=== PATIENT | female | born 1930 | race Caucasian/White ===

== ENCOUNTER 2016-05-28 21:46 | Emergency (ER) | payer MEDICARE ==
[~2016-05-28 21:46] MED LIST: Sodium Chloride 0.9% 1,000 ML BAG ONE
[2016-05-28] MEDS ORDERED: Labetalol HCl 100 MG/20 ML VIAL ONE (22:24)
[2016-05-28 23:01] LABS: INR-International Normal Ratio 1.4; Prothrombin Time 17.1 SEC (12.0-14.7)
[2016-05-28 23:02] LABS: PTT 39.4 SEC (22.9-36.1)
[2016-05-28 23:10] LABS: #Basophils 0.1 thou/uL (0.0-0.2); #Eosinphils 0.2 thou/uL (0.0-0.7); #Lymphocytes 1.4 thou/uL (1.20-3.40); #Monocytes 0.8 thou/uL (0.11-0.59); #Neutrophils 4.4 thou/uL (1.40-6.50); %Basophils 1.1 % (0.0-1.0); %Eosinophils 2.3 % (0.0-10.0); %Lymphocytes 20.2 % (21.0-51.0); %Monocytes 11.2 % (0.0-10.0); %Neutrophils 65.3 % (42.0-75.0); Hemoglobin 13.1 g/dL (12.0-16.0); Mean Corpuscular Hemoglobin 33.9 pg (27.0-31.0); Mean Corpuscular Volume 99.8 fl (81.0-99.0); Mean Platelet Volume 6.6 fL (7.4-10.4); Platelet Count 338 thou/uL (130-400); RBC Distribution Width 12.3 % (11.5-14.5); Red Blood Cell (RBC) Count 3.85 mill/uL (4.20-5.40); White Blood Cell (WBC) Count 6.7 thou/uL (4.8-10.8)
--- NOTE | 2016-05-28 23:14 | CT ---
HEAD CT WITHOUT CONTRAST 05/28/2016 COMPARISON: 06/28/2014 HISTORY: Altered mental status. TECHNIQUE: Serial axial CT imaging at 5-mm intervals from vertex through skull base without contrast. FINDINGS: The imaged paranasal sinuses and mastoid air cells are well-aerated. There is no displaced calvaria l fracture. There is atherosclerotic calcification of the cavernous carotid arteries. There is moderate diffuse cerebral volume loss with associated prominence of the CSF-containing spaces. There is prominent p eriventricular, deep, and subcortical white matter hypodensity, evidence of small vessel disease. No intracranial hemorrhage. IMPRESSION: Chronic findings as above. No intracranial hemorrhage noted. POS: [facility]
[2016-05-28 23:33] LABS: ALT (SGPT) 15 U/L (0-55); AST (SGOT) 16 U/L (5-34); Albumin 3.8 g/dL (3.4-4.8); Alkaline Phosphatase 65 U/L (40-150); Anion Gap 18 mmol/L (10-20); BUN (Urea Nitrogen) 11 mg/dL (9.8-20.1); Bilirubin, Total 0.5 mg/dL (0.2-1.2); CK (CPK) 36 U/L (29-168); CKMB 0.9 ng/mL (0-6.6); Calc. Creatinine Clearance 0 mL/min (70-130); Calcium 8.9 mg/dL (7.8-10.44); Carbon Dioxide 23 mmol/L (23-31); Chloride 101 mmol/L (98-107); Estimated GFR-MDRD 84; Globulin 2.6 g/dL (2.4-3.5); Glucose 103 mg/dL (83-110); Lipase 16 U/L (8-78); Magnesium 2.1 mg/dL (1.6-2.6); Potassium 3.9 mmol/L (3.5-5.1); Protein, Total 6.4 g/dL (5.8-8.1); Sodium 138 mmol/L (136-145); Troponin I Less than 0.010 ng/mL (< 0.028)
--- NOTE | 2016-05-28 23:44 | RAD ---
PORTABLE UPRIGHT FRONTAL CHEST RADIOGRAPH 05/28/2016 COMPARISON: 04/19/2016 HISTORY: Altered mental status. FINDINGS: Increased linear interstitial density noted bilaterally, stable. No pneumothorax, pleural fluid, fo bety consolidation, or alveolar edema. IMPRESSION: No acute findings. POS: [facility]
[2016-05-28] MEDS ORDERED: Morphine Sulfate 2 MG/ML SYRINGE ONE (23:48)
[2016-05-28] MEDS ORDERED: Ondansetron HCl/PF 4 MG/2 ML Vial ONE (23:54)
--- NOTE | 2016-05-29 06:23 | ERRECORD ---
[facility] EMERGENCY RECORD HPI CVA (23:39 LLDO) CHIEF COMPLAINT: Denies confusion, Denies mental status change, Patient presents for evaluation of motor deficits, Patient not unresponsive, no sensory deficits, denies Cerebellar Symptoms. HISTORIAN: History provided by patient, History provided by patient's spouse. LOCATION: Symptoms are localized, most severe to the right arm, most severe to the right leg, most severe to speech. QUALITY: Patient is alert and oriented to person, place and time, [place] coma score is 15, Pain is dull in nature, described as aching, Described as similar to previous episodes. SEVERITY: Maximum severity of symptoms moderate. TIME COURSE: Sudden onset of symptoms, There has been no change in the patient's symptoms over time, are constant. EXACERBATED BY: Patient's condition exacerbated by failed swollow test. RISK FACTORS: Ischemic risk factors, include hypertension, Hemorrhagic risk factors, include advanced age, include hypertension, Subarachnoid hemorrhage risk factors, not applicable for this patient, CVA/TIA risk factors. NIHSS: CVA assessment findings: Level of consciousness: alert, keenly responsive (0), Questions: answers both questions correctly (0), Commands: performs both tasks correctly (0), Best gaze: normal (0), Visual: no visual loss (0), Facial palsy: minor paralysis (1), Motor Left Arm: no drift, arm stays 90/45 degrees for full 10 seconds (0), Motor Right Arm:some effort against gravity, drifts down to bed or support (2), Motor left leg: no drift, leg stays at 30 degrees for full five seconds (0), Motor right leg: some effort against gravity, drifts down to bed or support (2), Limb ataxia: present in one limb (1), Sensory: normal, no sensory loss (0), Best language: no aphasia; normal (0), Dysarthria: mild to moderate: patient slurs at least some words and, at worst, can be understood with some difficulty (1), Extinction and Inattention: visual, tactile, auditory, spatial or personal inattention or extinction to bilateral simultaneous simulation in one of the sensory modalities (1), Total score 8. ACUTE STROKE PROTOCOL: Side and/or site verified, Patient identification confirmed, Sterile procedures observed, Verbal consent obtained, Confirm time of onset or last seen normal 1200 (noon), Onset of symptoms greater than 7 hours:, NIHSS score 8, Inclusion criteria: Patient's age 18 years or older, Clinical diagnosis of ischemic stroke with a measurable neurologic deficit, Time of symptom onset (when patient was last seen normal) Not well established as less than 3 hours before treatment would begin, Patient tolerated the procedure well, After procedure, patient &a-1R&a+25V*p+0X*[id number]*c202B*c15G*c2P*p-0X&a-25V&a+1R Name: Sandi Hayden : 1930 F86 MedRec: [id number] AcctNum: [id number] Prepared: SatMay 29, 2016 11:34 by Interface Page 1 of 7 pMD [facility] EMERGENCY RECORD is NOT eligible for tPA therapy, Patient is Not eligible for Interventional therapy. ROS CONSTITUTIONAL: Historian reports fatigue, reports weakness. (23:55 LLDO) EYES: Negative eye review of systems, Historian denies eye pain, denies eye redness, denies eye discharge. (SatMay 29, 2016 00:09 LLDO) ENT: Negative ears, nose, throat review of systems, Historian denies epistaxis, denies rhinorrhea, denies sinus pain, denies sore throat. (SatMay 29, 2016 00:09 LLDO) CARDIOVASCULAR: Historian denies chest pain, no radiation, Historian denies diaphoresis, denies dyspnea on exertion. (23:55 LLDO) RESPIRATORY: Negative respiratory review of systems, Historian denies cough, denies shortness of breath, denies sputum. (SatMay 29, 2016 00:09 LLDO) GI: Negative gastrointestinal review of systems, Historian denies abdominal pain, denies constipation, denies diarrhea, denies nausea, denies vomiting. (SatMay 29, 2016 00:09 LLDO) GENITOURINARY FEMALE: Negative genitourinary review of systems, Historian denies dysuria, denies frequency, denies urgency. (SatMay 29, 2016 00:09 LLDO) MUSCULOSKELETAL: Negative musculoskeletal review of systems, Historian denies arthralgias, denies back pain, denies injury, denies myalgias, denies neck pain. (SatMay 29, 2016 00:09 LLDO) SKIN: Negative skin review of systems, Historian denies cellulitis, denies rash, denies skin changes, denies skin lesions. (SatMay 29, 2016 00:09 LLDO) NEUROLOGIC: Historian denies confusion, denies dizziness, reports focal weakness, reports gait changes, reports headache, denies irritability, denies lethargy, denies mental status changes, reports paralysis, denies paresthesias, denies seizures, denies sensory changes, reports speech changes. IN HPI. (23:55 LLDO) HEMO/LYMPHATIC: Normal hematologic/lymphatic system review, Historian denies abnormal blood clotting, denies gum bleeding, denies petechiae. (SatMay 29, 2016 00:09 LLDO) ALLERGIC/IMMUNOLOGIC: Normal allergy/immunologic system review, Historian denies eczema, denies environmental allergies, denies food allergies. (SatMay 29, 2016 00:09 LLDO) PSYCHIATRIC: Negative psychiatric review of systems, Historian denies alcohol abuse, denies anxiety, denies depression, denies drug abuse, denies hallucinations. (SatMay 29, 2016 00:09 LLDO) NOTES: All systems reviewed, negative except as described above. (23:55 LLDO) PAST MEDICAL HISTORY MEDICAL HISTORY: Past medical history includes cardiac &a-1R&a+25V*p+0X*b0416A*c202B*c15G*c2P*p-0X&a-25V&a+1R Name: Sandi Hayden : 1930 F86 MedRec: [id number] AcctNum: [id number] Prepared: SatMay 29, 2016 11:34 by Interface Page 2 of 7 pMD [facility] EMERGENCY RECORD history, arrhythmia, atrial fibrillation, cardioverted on 04/19/2016, Notes: ARTHRITIS, Flu vaccine up to date, Tetanus not up to date, Pneumococcal vaccine not up to date, Past medical history includes cardiac history, congestive heart failure, Past medical history includes history of hyperlipidemia, Past medical history includes history of hypertension. Verified on 04/19/16. (22:10 LPOL) FEMALE SURGICAL HISTORY: Surgical history of tonsillectomy, NECK SX, Surgical history of appendectomy, Surgical history of hysterectomy, surgical history of tonsillectomy. Hemorrhoids. Verified on 04/19/16. (22:10 LPOL) PSYCHIATRIC HISTORY: No previous psychiatric history. Verified on 04/19/16. (22:10 LPOL) SOCIAL HISTORY: Patient drinks alcohol socially, Patient denies drug use, Patient has no smoking history, Lives at home. Verified on 04/19/16. (22:10 LPOL) FAMILY HISTORY: Paternal history of cardiac disease:. (22:10 LPOL) NOTES: Nursing records reviewed, Agree with nursing records, Old chart reviewed, Medication list reviewed. (SatMay 29, 2016 00:09 LLDO) KNOWN ALLERGIES penicillin G potassium Penicillins (Unconfirmed) Sulfa (Sulfonamide Antibiotics) (Unconfirmed) sulfanilamide CURRENT MEDICATIONS amiodarone: TABLET : Strength - 400 mg : ORAL Patient Dose: Oral 2 times a day. (22:17 LPOL) losartan: TABLET : Strength - 100 mg : ORAL Patient Dose: 100 mg Oral once a day. (22:18 LPOL) simvastatin: TABLET : Strength - 10 mg : ORAL Patient Dose: 20 mg Oral once a day (in the evening). (22:18 LPOL) gabapentin: CAPSULE : Strength - 100 mg : ORAL Patient Dose: 600 mg Oral 2 times a day. (22:18 LPOL) folic acid: TABLET : Strength - 1 mg : ORAL Patient Dose: once a day (in the morning). (22:18 LPOL) HYDROcodone-acetaminophen: TABLET : Strength - 7.5 mg-325 mg : ORAL Patient Dose: every 4 hours prn. (22:18 LPOL) Eliquis: TABLET : Strength - 5 mg : ORAL &a-1R&a+25V*p+0X*[id number]*c202B*c15G*c2P*p-0X&a-25V&a+1R Name: Sandi Hayden : 1930 F86 MedRec: [id number] AcctNum: [id number] Prepared: SatMay 29, 2016 11:34 by Interface Page 3 of 7 pMD [facility] EMERGENCY RECORD Patient Dose: Oral 2 times a day. (22:19 LPOL) potassium chloride: TABLET, EXTENDED RELEASE : Strength - 10 mEq : ORAL Patient Dose: Oral once a day (in the morning). (22:20 LPOL) furosemide: TABLET : Strength - 20 mg : ORAL Patient Dose: Oral once a day. (22:21 LPOL) VITAL SIGNS VITAL SIGNS: BP: 194/90, Pulse: 73, Resp: 19, Temp: 98.7 (Oral), Pain: 0, O2 sat: 97 on Room Air, Time: 05/28/2016 21:56. (21:56 LPOL) BP: 184/92, Pulse: 63, Resp: 12, O2 sat: 96 on Room Air, Time: 05/28/2016 22:08. (22:08 LPOL) BP: 167/56, Pulse: 61, Resp: 17, O2 sat: 95 on Room Air, Time: 05/28/2016 22:52. (22:52 LPOL) BP: 151/65, Pulse: 61, Resp: 20, Time: 05/28/2016 23:19. (23:19 LPOL) BP: 152/72, Pulse: 60, Resp: 15, Time: 05/28/2016 23:33. (23:33 LPOL) BP: 137/49, Pulse: 58, Resp: 14, O2 sat: 96 on Room Air, Time: 05/29/2016 00:02. (SatMay 29, 2016 00:02 LPOL) BP: 128/47, Pulse: 58, Resp: 11, O2 sat: 95 on 2L Oxygen, Time: 05/29/2016 00:41. (SatMay 29, 2016 00:41 LPOL) O2 sat: 91 on Room Air, Time: 05/29/2016 00:30. (SatMay 29, 2016 00:30 LPOL) BP: 142/51, Pulse: 57, Resp: 17, O2 sat: 97 on 2L Oxygen, Time: 05/29/2016 01:23. (SatMay 29, 2016 01:23 LPOL) BP: 133/41, Pulse: 54, Resp: 12, O2 sat: 97 on Room Air, Time: 05/29/2016 01:29. (SatMay 29, 2016 01:29 LPOL) BP: 146/45, Pulse: 59, Resp: 15, O2 sat: 99 on 2 L, Time: 05/29/2016 02:30. (SatMay 29, 2016 02:30 LPOL) BP: 120/43, Pulse: 55, Resp: 14, O2 sat: 97 on Room Air, Time: 05/29/2016 03:02. (SatMay 29, 2016 03:02 LPOL) BP: 129/47, Pulse: 61, Resp: 13, O2 sat: 97 on Room Air, Time: 05/29/2016 03:33. (SatMay 29, 2016 03:33 LPOL) BP: 126/46, Pulse: 55, Resp: 12, O2 sat: 96 on 2 l, Time: 05/29/2016 04:13. (SatMay 29, 2016 04:13 LPOL) BP: 137/60, Pulse: 55, Resp: 14, O2 sat: 97 on 2 L, Time: 05/29/2016 05:17. (SatMay 29, 2016 05:17 LPOL) BP: 141/54, Pulse: 57, Resp: 16, Temp: 98.1 (Tympanic), O2 sat: 95 on Room Air, Time: 05/29/2016 06:22. (SatMay 29, 2016 06:22 LPOL) BP: 131/51, Pulse: 55, Resp: 12, Pain: 0, O2 sat: 98 on 2L Oxygen, Time: 05/29/2016 07:03. (SatMay 29, 2016 07:03 SFRE) BP: 153/58, Pulse: 59, Resp: 11, Pain: 0, O2 sat: 98 on ra, Time: 05/29/2016 07:55. (SatMay 29, 2016 07:55 SFRE) BP: 145/52, Pulse: 57, Resp: 15, Temp: 98.3 (Tympanic), Pain: 10, O2 sat: 99 on 2L Oxygen, Time: 05/29/2016 09:02. (SatMay 29, 2016 09:02 SFRE) BP: 130/61, Pulse: 99, Resp: 15, Pain: 0, O2 sat: 98 on 2L Oxygen, Time: 05/29/2016 10:00. (SatMay 29, 2016 10:00 SFRE) PHYSICAL EXAM &a-1R&a+25V*p+0X*b9642G*c202B*c15G*c2P*p-0X&a-25V&a+1R Name: Sandi Hayden : 1930 F86 MedRec: [id number] AcctNum: [id number] Prepared: SatMay 29, 2016 11:34 by Interface Page 4 of 7 pMD [facility] EMERGENCY RECORD CONSTITUTIONAL: Vital Signs Reviewed, Patient afebrile, Pulse normal, Blood pressure, bp elevated, Respiratory rate normal, Patient appears, uncomfortable, Patient appears, in moderate pain distress, headache, Patient alert and oriented to person, place and time, Nursing notes reviewed. (SatMay 29, 2016 00:04 LLDO) HEAD: Head exam included findings of head atraumatic, normocephalic. (SatMay 29, 2016 00:04 LLDO) EYES: Eye exam normal, Eye exam included findings of eyelids normal to inspection, Pupils equally round and reactive to light, Extraocular muscles intact. (SatMay 29, 2016 00:09 LLDO) ENT: ENT exam normal, Ear exam normal, Nose exam normal. (SatMay 29, 2016 00:09 LLDO) NECK: Neck exam normal, Neck exam included findings of normal range of motion, Trachea midline, no meningeal signs, no tenderness. (SatMay 29, 2016 00:09 LLDO) RESPIRATORY CHEST: Respiratory and chest exam normal, Respiratory exam included findings of, Chest exam included findings of chest movement symmetrical, Chest expansion equal. (SatMay 29, 2016 00:09 LLDO) CARDIOVASCULAR: Cardiovascular assessment normal, Cardiovascular exam included findings of heart rate regular rate and rhythm, Heart sounds normal. (SatMay 29, 2016 00:09 LLDO) ABDOMEN FEMALE: Abdominal exam normal, Abdominal exam included findings of abdomen nontender, Bowel sounds normal, no peritoneal signs. (SatMay 29, 2016 00:09 LLDO) BACK: Back exam normal, Back exam included findings of normal inspection, range of motion normal. (SatMay 29, 2016 00:09 LLDO) UPPER EXTREMITY: Upper extremity exam normal, Upper extremity exam included findings of inspection normal, Range of motion normal. (SatMay 29, 2016 00:09 LLDO) LOWER EXTREMITY: Lower extremity exam normal, Lower extremity exam included findings of inspection normal, Range of motion normal. (SatMay 29, 2016 00:09 LLDO) NEURO: Neuro exam findings include patient oriented to person, place and time, Speech, slurred, Gait abnormal, unable to ambulate, right leg won't hold weight, [place] coma scale 15, Memory normal, Cranial nerves intact, Deep tendon reflexes normal, Focal motor deficits include, no focal sensory deficits, no cerebellar deficits, no nystagmus. (SatMay 29, 2016 00:04 LLDO) SKIN: Skin exam normal, Skin exam included findings of skin warm, dry, and normal in color, no rash. (SatMay 29, 2016 00:09 LLDO) PSYCHIATRIC: Psychiatric exam normal, Psychiatric exam included findings of patient oriented to person place and time, Normal affect. (SatMay 29, 2016 00:09 LLDO) RADIOLOGYINTERPRETATION (SatMay 29, 2016 08:09 ABUS) HEAD: Head CT negative, without contrast, no bleed, no mass, no acute changes. &a-1R&a+25V*p+0X*o3644S*c202B*c15G*c2P*p-0X&a-25V&a+1R Name: Sandi Hayden : 1930 F86 MedRec: [id number] AcctNum: [id number] Prepared: SatMay 29, 2016 11:34 by Interface Page 5 of 7 pMD [facility] EMERGENCY RECORD BIOMEDICAL EQUIPMENT TECHNICIAN: Preliminary review of CT scans by, ED Physician, Radiologist. MEDICATION ADMINISTRATION SUMMARY Drug Name: Duramorph (PF), Dose Ordered: 2 mg, Route: IV Push, Status: Given, Time: 08:49 05/29/2016, Drug Name: Levaquin intravenous, Dose Ordered: 500 mg, Route: IV Piggy Back, Status: Given, Time: 07:27 05/29/2016, Drug Name: *sodium chloride 0.9 % intravenous, Dose Ordered: 125 mL/hr, Route: IV Fluid Infusion, Status: Given, Time: 06:21 05/29/2016, Drug Name: Zofran intravenous, Dose Ordered: 4 mg, Route: IV Push, Status: Given, Time: 00:01 05/29/2016, Drug Name: Duramorph (PF), Dose Ordered: 2 mg, Route: IV Push, Status: Given, Time: 23:59 05/28/2016, Drug Name: labetalol intravenous, Dose Ordered: 5 mg, Route: IV Push, Status: Given, Time: 22:40 05/28/2016, *Additional information available in notes, Detailed record available in Medication Service section. DOCTOR NOTES TEXT: accepted by dr. hines at [facility] but asked us to hold until they can clear out some. have 20+ waiting for beds at this time. (23:51 LLDO) sleeping peacefully with good vitals and RA saturation of 97%. awaiting [facility] call for transfer. (SatMay 29, 2016 04:05 LLDO) pt awake and alert. was up on commode but a lot of effort to get her back in bed. putting in byrnes. right side seems a bit weaker this morning as doesright side of mouth. (SatMay 29, 2016 06:11 LLDO) Report received from Dr. Ray. Her symptoms appear to be worsening with greater R sided motor deficits. Apparently she had drift with R UE and now she has no movement against gravity. Since she is on Eliquis and some patients can have hemorrhagic conversion of ischemic CVA, will repeat CT scan of brain. IV fluids being used for maintenance and nutrition since pt failed swallow studies. Currently on hold for transfer due to no beds available in [place]. Pt will need stroke care. (SatMay 29, 2016 07:36 ABUS) No new acute changes in head CT. Per radiology and based on clinical exam will need MRI, consult with neurology and post-stroke care/evaluation. the patient's and family were provided with updates and the plan of care which they verbalized understanding and agreement with. (SatMay 29, 2016 08:09 ABUS) report given to Dr. Elam who accepted the patient for direct admit and MRI and post stroke care. (SatMay 29, 2016 10:38 ABUS) SIGN OUT: Patient signed out to, Dr. Wang. (SatMay 29, 2016 06:11 LLDO) PATIENT PLAN: The patient requires a transfer and will be transferred. (23:51 LLDO) The patient requires a transfer and will be transferred. (SatMay 29, &a-1R&a+25V*p+0X*g7994F*c202B*c15G*c2P*p-0X&a-25V&a+1R Name: Sandi Hayden Mane : 1930 F86 MedRec: [id number] AcctNum: [id number] Prepared: SatMay 29, 2016 11:34 by Interface Page 6 of 7 pMD [facility] EMERGENCY RECORD 2017 06:11 LLDO) PROBLEM LIST No recorded problems DIAGNOSIS (SatMay 29, 2016 00:12 LLDO) FINAL: PRIMARY: TRANS CERBRAL ISCHEMIC ATTACK UNS, ADDITIONAL: Hypertension. PRESCRIPTION No recorded prescriptions DISPOSITION PATIENT: Disposition Type: Transfer, Disposition: Transfer to [facility]. (SatMay 29, 2016 00:12 LLDO) Patient left the department. (SatMay 29, 2016 11:28 SFRE) Perez: DANIS=MD Felipe, [place] LLDO=MD Flor, Angel LPOL=ELBA Christian, Kenyatta SFRE=ELBA Bell, Liss &a-1R&a+25V*p+0X*q0304B*c202B*c15G*c2P*p-0X&a-25V&a+1R Name: Sandi Hayden Mane : 1930 F86 MedRec: [id number] AcctNum: [id number] Prepared: SatMay 29, 2016 11:34 by Interface Page 7 of 7 pMD MTDD
--- NOTE | 2016-05-29 06:28 | PICIS ---
[facility] EMERGENCY RECORD TRIAGE (21:57 LPOL) PATIENT: NAME: Sandi Hayden, AGE: 86, GENDER: female, : Sat 1930, TIME OF GREET: SatMay 28, 2016 21:46, PREFERRED LANGUAGE: Tuvaluan, ETHNICITY: Not or , FALL RISK: YES, ECODE BILLING MAP: [facility], SSN: [id number], Zip Code: [address], KG WEIGHT: 79.38 (est.), PHONE: , , , PERSON ID: [id number]. (21:57 LPOL) COMPLAINT: HIGH BLOOD PRESSURE. (21:57 LPOL) ADMISSION: URGENCY: 3 Urgent, ADMISSION SOURCE: Home, TRANSPORT: AMBULANCE - [facility], BED: TRIAGE. (21:57 LPOL) SIRS SCORING: Heart Rate 55-109 (0), Temp range 96.8-101.1 (0), respiratory rate 12-24 (0), Mental Status altered: no (0), Infection or Suspected Infection: No. (22:10 LPOL) TRIAGE SCREENING: Patient denies suicidal ideation, Patient denies presence of domestic violence. (22:10 LPOL) TREATMENTS IN PROGRESS: Treatments given Prehospital: BS 90, SL 20 g in right ac. (22:10 LPOL) PROVIDERS: TRIAGE NURSE: Kenyatta Kaur RN. (21:57 LPOL) VITAL SIGNS: BP 194/90, Pulse 73, Resp 19, Temp 98.7, (Oral), Pain 0, O2 Sat 97, on Room Air, Time 05/28/2016 21:56. (21:56 LPOL) BP 184/92, Pulse 63, Resp 12, O2 Sat 96, on Room Air, Time 05/28/2016 22:08. (22:08 LPOL) PREVIOUS VISIT ALLERGIES: penicillin G potassium, sulfanilamide. (21:57 LPOL) penicillin G potassium, sulfanilamide. (22:10 LPOL) KNOWN ALLERGIES penicillin G potassium Penicillins (Unconfirmed) Sulfa (Sulfonamide Antibiotics) (Unconfirmed) sulfanilamide CURRENT MEDICATIONS amiodarone: TABLET : Strength - 400 mg : ORAL Patient Dose: Oral 2 times a day. (22:17 LPOL) losartan: TABLET : Strength - 100 mg : ORAL Patient Dose: 100 mg Oral once a day. (22:18 LPOL) simvastatin: TABLET : Strength - 10 mg : ORAL Patient Dose: 20 mg Oral once a day (in the evening). (22:18 LPOL) gabapentin: CAPSULE : Strength - 100 mg : ORAL Patient Dose: 600 mg Oral 2 times a day. (22:18 LPOL) folic acid: TABLET : Strength - 1 mg : ORAL Patient Dose: once a day (in the morning). (22:18 LPOL) &a-1R&a+25V*p+0X*z9162W*c202B*c15G*c2P*p-0X&a-25V&a+1R Name: Sandi Hayden : 1930 F86 MedRec: [id number] AcctNum: [id number] Prepared: Birgit May 29, 2016 11:37 by Interface Page 1 of 21 pMD [facility] EMERGENCY RECORD HYDROcodone-acetaminophen: TABLET : Strength - 7.5 mg-325 mg : ORAL Patient Dose: every 4 hours prn. (22:18 LPOL) Eliquis: TABLET : Strength - 5 mg : ORAL Patient Dose: Oral 2 times a day. (22:19 LPOL) potassium chloride: TABLET, EXTENDED RELEASE : Strength - 10 mEq : ORAL Patient Dose: Oral once a day (in the morning). (22:20 LPOL) furosemide: TABLET : Strength - 20 mg : ORAL Patient Dose: Oral once a day. (22:21 LPOL) VITAL SIGNS VITAL SIGNS: BP: 194/90, Pulse: 73, Resp: 19, Temp: 98.7 (Oral), Pain: 0, O2 sat: 97 on Room Air, Time: 05/28/2016 21:56. (21:56 LPOL) BP: 184/92, Pulse: 63, Resp: 12, O2 sat: 96 on Room Air, Time: 05/28/2016 22:08. (22:08 LPOL) BP: 167/56, Pulse: 61, Resp: 17, O2 sat: 95 on Room Air, Time: 05/28/2016 22:52. (22:52 LPOL) BP: 151/65, Pulse: 61, Resp: 20, Time: 05/28/2016 23:19. (23:19 LPOL) BP: 152/72, Pulse: 60, Resp: 15, Time: 05/28/2016 23:33. (23:33 LPOL) BP: 137/49, Pulse: 58, Resp: 14, O2 sat: 96 on Room Air, Time: 05/29/2016 00:02. (SatMay 29, 2016 00:02 LPOL) BP: 128/47, Pulse: 58, Resp: 11, O2 sat: 95 on 2L Oxygen, Time: 05/29/2016 00:41. (SatMay 29, 2016 00:41 LPOL) O2 sat: 91 on Room Air, Time: 05/29/2016 00:30. (SatMay 29, 2016 00:30 LPOL) BP: 142/51, Pulse: 57, Resp: 17, O2 sat: 97 on 2L Oxygen, Time: 05/29/2016 01:23. (SatMay 29, 2016 01:23 LPOL) BP: 133/41, Pulse: 54, Resp: 12, O2 sat: 97 on Room Air, Time: 05/29/2016 01:29. (SatMay 29, 2016 01:29 LPOL) BP: 146/45, Pulse: 59, Resp: 15, O2 sat: 99 on 2 L, Time: 05/29/2016 02:30. (SatMay 29, 2016 02:30 LPOL) BP: 120/43, Pulse: 55, Resp: 14, O2 sat: 97 on Room Air, Time: 05/29/2016 03:02. (SatMay 29, 2016 03:02 LPOL) BP: 129/47, Pulse: 61, Resp: 13, O2 sat: 97 on Room Air, Time: 05/29/2016 03:33. (SatMay 29, 2016 03:33 LPOL) BP: 126/46, Pulse: 55, Resp: 12, O2 sat: 96 on 2 l, Time: 05/29/2016 04:13. (SatMay 29, 2016 04:13 LPOL) BP: 137/60, Pulse: 55, Resp: 14, O2 sat: 97 on 2 L, Time: 05/29/2016 05:17. (SatMay 29, 2016 05:17 LPOL) BP: 141/54, Pulse: 57, Resp: 16, Temp: 98.1 (Tympanic), O2 sat: 95 on Room Air, Time: 05/29/2016 06:22. (SatMay 29, 2016 06:22 LPOL) BP: 131/51, Pulse: 55, Resp: 12, Pain: 0, O2 sat: 98 on 2L Oxygen, Time: 05/29/2016 07:03. (SatMay 29, 2016 07:03 SFRE) BP: 153/58, Pulse: 59, Resp: 11, Pain: 0, O2 sat: 98 on ra, Time: 05/29/2016 07:55. (SatMay 29, 2016 07:55 SFRE) BP: 145/52, Pulse: 57, Resp: 15, Temp: 98.3 (Tympanic), Pain: 10, O2 sat: &a-1R&a+25V*p+0X*d4159P*c202B*c15G*c2P*p-0X&a-25V&a+1R Name: Sandi Hayden : 1930 F86 MedRec: [id number] AcctNum: [id number] Prepared: SatMay 29, 2016 11:37 by Interface Page 2 of 21 pMD [facility] EMERGENCY RECORD 99 on 2L Oxygen, Time: 05/29/2016 09:02. (SatMay 29, 2016 09:02 SFRE) BP: 130/61, Pulse: 99, Resp: 15, Pain: 0, O2 sat: 98 on 2L Oxygen, Time: 05/29/2016 10:00. (SatMay 29, 2016 10:00 SFRE) NURSING ASSESSMENT: CVA ASSESSMENT TOOL NIHSS: CVA assessment findings: Level of consciousness: alert, keenly responsive (0), Questions: answers both questions correctly (0), Commands: performs both tasks correctly (0), Best gaze: normal (0), Visual: no visual loss (0), Facial palsy: normal symmetrical movement (0), Motor Left Arm: no drift, arm stays 90/45 degrees for full 10 seconds (0), Motor Right Arm:some effort against gravity, drifts down to bed or support (2), Motor left leg: no drift, leg stays at 30 degrees for full five seconds (0), Motor right leg: some effort against gravity, drifts down to bed or support (2), Limb ataxia: present in two limbs (2), Sensory: normal, no sensory loss (0), Best language: no aphasia; normal (0), Dysarthria: normal (0), Extinction and Inattention: normal (0), Total score 6. (SatMay 29, 2016 06:26 LPOL) SWALLOWING EVALUATION: Patient clear for swallowing evaluation; no positive responses, Swallowing evaluation approved by Dr. Leon, Following administration of 3 ounces of water by a cup, patient failed swallowing evaluation by exhibiting the following signs or symptoms of aspiration:, cough. (23:30 LPOL) NURSING ASSESSMENT: HEAD-TO-TOE (22:11 LPOL) CONSTITUTIONAL: History obtained from patient, Patient appears comfortable, Patient cooperative, Patient alert, Oriented to person, place and time, Skin warm, Skin dry, Skin normal in color, Mucous membranes pink, Mucous membranes moist, Patient is well-groomed. NEURO: Face symmetrical, Speech, slurred, slow, GCS:, Eye opening: (4) - Spontaneous, Verbal: (5) - Oriented/conversive, Motor: (6) - Obeys commands/Spontaneous, GCS Total: 15, Hand grasps equal, Upper extremity strength strong, Lower extremity strength, moderately weak on the right, Foot press equal, Associated with weakness, Notes: since noon today. RESPIRATORY/CHEST: Breath sounds clear, Respiratory assessment findings include respiratory effort easy, Respirations regular, Conversing normally, Neck and chest exam findings include trachea midline, Chest expansion equal, Chest movement symmetrical. CARDIOVASCULAR: Cardiovascular assessment findings include heart rate normal, Heart rhythm normal sinus, Heart sounds normal. ABDOMEN: Abdomen assessment findings include abdomen symmetrical, Abdomen soft, Bowel sound normal. RIGHT LOWER EXTREMITY: muscle strength 3. SAFETY: Cart/Stretcher in lowest position, Family at bedside, Hospital ID band on. NURSING ASSESSMENT: NEURO NIHSS: CVA assessment findings: Level of consciousness: alert, &a-1R&a+25V*p+0X*i2604V*c202B*c15G*c2P*p-0X&a-25V&a+1R Name: Sandi Hayden : 1930 F86 MedRec: [id number] AcctNum: [id number] Prepared: SatMay 29, 2016 11:37 by Interface Page 3 of 21 pMD [facility] EMERGENCY RECORD keenly responsive (0), Questions: answers both questions correctly (0), Commands: performs both tasks correctly (0), Best gaze: normal (0), Visual: no visual loss (0), Facial palsy: normal symmetrical movement (0), Motor Left Arm: no drift, arm stays 90/45 degrees for full 10 seconds (0), Motor Right Arm:some effort against gravity, drifts down to bed or support (2), Motor left leg: no drift, leg stays at 30 degrees for full five seconds (0), Motor right leg: some effort against gravity, drifts down to bed or support (2), Limb ataxia: present in two limbs (2), Sensory: normal, no sensory loss (0), Best language: no aphasia; normal (0), Dysarthria: normal (0), Extinction and Inattention: normal (0), Total score 6. (21:59 LPOL) PAIN: headache. (SatMay 29, 2016 00:02 LPOL) ENT: Associated with headache. (SatMay 29, 2016 00:02 LPOL) NURSING PROCEDURE: BEDSIDE TESTING (23:04 LPOL) GLUCOSE: Venous blood sample, Result (mg/dl) 94. NURSING PROCEDURE: GEOSPATIAL SYSTEMS INTEGRATOR (22:13 LPOL) GEOSPATIAL SYSTEMS INTEGRATOR: Patient placed on rn travel, Heart rate: 61, showing normal sinus rhythm, Patient placed on non-invasive blood pressure monitor, Patient placed on continuous pulse oximetry, Adult/pediatric oxisensor applied, Oxygen saturation 95%. NURSING PROCEDURE: COMMUNICATIONS COMMUNICATIONS: Other notification, Name LAYA, contacted at TRANSFER CENTER, Reason for notification TRANSFER FOR ISCHEMIC STROKE, ADVISED BY TRANSFER CENTER THAT NO BEDS AVAILABLE AT THE MAIN CAMPUS, REQUESTING THAT THIS PATIENT BE HELD IN ER AT [facility] UNTIL MORNING OR WHEN A BED MAY COME AVAILABLE. DR LEON AWARE AND REQUESTING PATIENT BE TRANSFERRED PATIENT HAS FAILED HER SWALLOW STUDY AND COULD HAVE HER CONDITION DETERIORATE WHILE IN OUR CARE. DR LEON AGREES TO HOLD PATIENT IN ER AT THIS TIME. (23:38 ADEA) Notes: DR LUKE AND [facility] ACCEPTING PATIENT BUT ALSO REQUEST THAT PATIENT NOT BE TRANSFERRED UNTIL BEDS AVAILABLE. (23:51 ADEA) Other notification, Name LAYA, contacted at [phone] TRANSFER CENTER, Reason for notification STATUS OF BEDS, STILL NO BED AVAILABLE, [facility] WHEN BED BECOMES AVAILABLE. (SatMay 29, 2016 03:43 ADEA) Notes: transfer center called said there are 16 pt's in ed holding and no beds availiable; pt cont stable. (SatMay 29, 2016 07:06 JPER) Notes: CALLED WILLAM AT TRANSFER CENTER STATED THAT THERE ARE 24 PT'S IN ER AND 18 HOLDING; NO BEDS AVAILIABLE AT THIS TIME. (SatMay 29, 2016 08:00 JPER) Notes: WILLAM AT TRANSFER CENTER CALLED STATING THAT [facility] HAS A PT LEAVING AMA AND THAT PT CATRACHO WILL BE ASSIGNED TO THIS ROOM; WILLAM &a-1R&a+25V*p+0X*z7252C*c202B*c15G*c2P*p-0X&a-25V&a+1R Name: Sandi Hayden : 1930 F86 MedRec: [id number] AcctNum: [id number] Prepared: SatMay 29, 2016 11:37 by Interface Page 4 of 21 D [facility] EMERGENCY RECORD DID SAY THAT SHE WOULD BE TRANSFERRED TO A ROOM BUT A ROOM NUMBER WAS NOT PROVIDED; REQUESTED ESTIMATE ON WHEN WE COULD BE READY FOR TRANSFER AND WAS UNABLE TO PROVIDE SPECIFIC TIME BUT DID SAY SOON. (SatMay 29, 2016 09:10 JPER) Notes: 1009 willam called from transfer center giving room assign #211; waiting on hospi;lalist acceptance. (SatMay 29, 2016 10:09 JPER) Notes: dr domínguez accepting at this time. (SatMay 29, 2016 10:37 JPER) Notes: Ella at dispatch called; truck back in [facility] and will send truck kayden. (SatMay 29, 2016 10:41 JPER) Notes: EMS ARRIVAL. (SatMay 29, 2016 11:10 JPER) NURSING PROCEDURE: EKG CHART (22:49 LPOL) EK lead EKG performed on the left chest, done by first ZENAIDA kaurG. FOLLOW-UP: After procedure, EKG for interpretation given to Dr. Leon. NURSING PROCEDURE: ELIMINATION (SatMay 29, 2016 06:23 LPOL) ELIMINATION: Patient assisted to bedside commode, Urine specimen collected, labeled in the presence of the patient and sent to lab. NURSING PROCEDURE: NURSE NOTES NURSES NOTES: Notes: Refused catheter and bed pain to collect urine specimen. wants to go to bathroom. pt unable to ambulate. MD notified. (22:45 LPOL) Notes: Informed pt/family of wait until tomorrow for transfer because no bed availability. (SatMay 29, 2016 00:04 LPOL) Patient in no apparent distress, Patient resting quietly. (SatMay 29, 2016 02:30 LPOL) Patient in no apparent distress, Patient resting quietly. (SatMay 29, 2016 04:13 LPOL) Patient in no apparent distress, Patient resting quietly. (SatMay 29, 2016 05:17 LPOL) Notes: Spoke with inform of status: stable still awaiting transfer. (SatMay 29, 2016 05:50 LPOL) Shift change report given, RECEIVED AT THIS TIME FROM ELBA BILL. (SatMay 29, 2016 06:35 SFRE) Shift change report given, to Liss ARREOLA, Provided opportunity to answer questions. (SatMay 29, 2016 06:37 LPOL) Notes: RESTING QUIETLY WITH NAD. (SatMay 29, 2016 06:39 SFRE) Notes: DISCUSSEDPT'S WORSENING CONDITION WITH DR WANG; WILL REPEAT CT AND PROCEED FROM THERE; SEE NIHSS FLOWSHEET. (SatMay 29, 2016 07:39 JPER) Notes: return from ct, placed back on monitors. nad noted. (SatMay 29, 2016 07:55 SFRE) Notes: CALLED AT THIS TIME. STATES HE WILL BE ON HIS WAY. (SatMay 29, 2016 08:00 SFRE) Notes: CONTINUING TO WAIT ON ARRIVAL OF . (SatMay 29, &a-1R&a+25V*p+0X*y5540K*c202B*c15G*c2P*p-0X&a-25V&a+1R Name: Sandi Hayden : 1930 F86 MedRec: [id number] AcctNum: [id number] Prepared: SatMay 29, 2016 11:37 by Interface Page 5 of 21 pMD [facility] EMERGENCY RECORD 2016 08:00 SFRE) Notes: FAMILY WOULD LIKE FOR PATIENT TO BE TRANSFERRED TO [facility]. AIR QUALITY ENGINEER TO START THE PROCESS OF TRANSFERRING TO [facility]. (SatMay 29, 2016 08:26 SFRE) Notes: DR WANG SPEAKING WITH FAMILY. (SatMay 29, 2016 08:30 SFRE) Notes: C/O GARCIA 40/10. DR WANG INFORMED. (SatMay 29, 2016 08:44 SFRE) Notes: DR WANG ON PHONE WITH DR AT [facility]. (SatMay 29, 2016 10:37 SFRE) VITAL SIGNS: BP: 146, / 45, Pulse: 59, Resp: 15, O2 sat: 99, on: 2 L. (SatMay 29, 2016 02:30 LPOL) BP: 126, / 46, Pulse: 55, Resp: 12, O2 sat: 96, on: 2 l. (SatMay 29, 2016 04:13 LPOL) BP: 137, / 60, Pulse: 55, Resp: 14, O2 sat: 97, on: 2 L. (SatMay 29, 2016 05:17 LPOL) BP: 153, / 58, Pulse: 59, Resp: 11, Pain: 0, O2 sat: 98, on: ra. (SatMay 29, 2016 07:55 SFRE) NURSING PROCEDURE: OXYGEN THERAPY (SatMay 29, 2016 00:35 LPOL) OXYGEN THERAPY: Oxygen saturation 96%, by adult/pediatric oxisensor, single pulse oximetry reading, 2L oxygen given, via nasal cannula applied, Applied by vincent. NURSING PROCEDURE: TRANSPORT TO TESTS TRANSPORT TO TESTS: Transport indicated to facilitate diagnosis, Transport indicated for WORSENING OF SYMPTOMS, Patient transported to CT scan, via cart, Accompanied by emergency department industrial technician, Accompanied by nurse. (SatMay 29, 2016 07:41 SFRE) FOLLOW-UP: After procedure, patient returned to emergency department. (SatMay 29, 2016 07:50 SFRE) NURSING PROCEDURE: URINE COLLECTION (SatMay 29, 2016 06:24 LPOL) URINE COLLECTION FEMALE: Simple jackson inserted, using a 16 fr pre-connected catheter, in one attempt, output amount (mL) 20. ORDER DETAILS Order Name: B type Natriuretic Peptide, Status: Active, Time: 22:03 05/28/2016, User: LLDO, - Ordered for: MD Leon Lloyd, - Entered by: MD Leon Lloyd - Juli May 28, 2016 22:03, - Quantity: 1, Order Name: BLOOD GLUCOSE MONITOR, Status: Done, Time: 23:04 05/28/2016, User: LPOL, - Ordered for: MD Leon Lloyd, - Entered by: MD Leon Lloyd - Juli May 28, 2016 22:36, - Quantity: 1, Order Name: GEOSPATIAL SYSTEMS INTEGRATOR ED, Status: Done, Time: 22:14 05/28/2016, User: LPOL, &a-1R&a+25V*p+0X*o4596F*c202B*c15G*c2P*p-0X&a-25V&a+1R Name: Sandi Hayden : 1930 F86 MedRec: [id number] AcctNum: [id number] Prepared: Birgit May 29, 2016 11:37 by Interface Page 6 of 21 D [facility] EMERGENCY RECORD - Ordered for: MD Leon Lloyd, - Entered by: MD Leon Lloyd - Juli May 28, 2016 22:06, - Quantity: 1, Order Name: Cardiac Profile w/CKMB & Troponin - I, Status: Active, Time: 22:03 05/28/2016, User: LLDO, - Ordered for: MD Leon Lloyd, - Entered by: MD Leon Lloyd - Juli May 28, 2016 22:03, - Quantity: 1, Order Name: CBC with Differential, Status: Active, Time: 22:03 05/28/2016, User: LLDO, - Ordered for: MD Leon Lloyd, - Entered by: MD Leon Lloyd - Juli May 28, 2016 22:03, - Quantity: 1, Order Name: CK (CPK), Status: Active, Time: 22:06 05/28/2016, User: LLDO, - Ordered for: MD Leon Lloyd, - Entered by: MD Leon Lloyd - Juli May 28, 2016 22:06, - Quantity: 1, Order Name: Comprehensive Metabolic Panel, Status: Active, Time: 22:03 05/28/2016, User: WOLF, - Ordered for: MD Leon Lloyd, - Entered by: MD Leon Lloyd - [facility] May 28, 2016 22:03, - Quantity: 1, Order Name: CT Brain WO Con, Status: Active, Time: 22:05 05/28/2016, User: WOLF, - Ordered for: MD Leon Lloyd, - Entered by: MD Leon Lloyd - [facility] May 28, 2016 22:05, - Quantity: 1, Order Name: CT Brain WO Con, Status: Active, Time: 07:35 05/29/2016, User: DANIS, - Ordered for: MD Wang Anthony, - Entered by: MD Wang Anthony - emmie May 29, 2016 07:35, - Quantity: 1, Order Name: Culture, Urine, Status: Active, Time: 22:03 05/28/2016, User: WOLF, - Ordered for: MD Leon Lloyd, - Entered by: MD Leon Lloyd - [facility] May 28, 2016 22:03, - Quantity: 1, Order Name: EKG 12 Lead in Emergency Room, Status: Active, Time: 22:06 05/28/2016, User: WOLF, - Ordered for: MD Leon Lloyd, - Entered by: MD Leon Lloyd - [facility] May 28, 2016 22:06, - Quantity: 1, Order Name: ERRT Oxygen Usage ER, Status: Active, Time: 22:06 05/28/2016, User: WOLF, - Ordered for: MD Leon Lloyd, - Entered by: MD Leon Lloyd - [facility] May 28, 2016 22:06, - Quantity: 1, Order Name: ERRT Pulse Oximeter ER, Status: Active, Time: 22:06 05/28/2016, User: LL, &a-1R&a+25V*p+0X*d1645A*c202B*c15G*c2P*p-0X&a-25V&a+1R Name: Catracho Sandi Mane : 1930 F86 MedRec: [id number] AcctNum: [id number] Prepared: SatMay 29, 2016 11:37 by Interface Page 7 of 21 [facility] EMERGENCY RECORD - Ordered for: MD Leon Lloyd, - Entered by: MD Leon Lloyd - [facility] May 28, 2016 22:06, - Quantity: 1, Order Name: JACKSON CATHETER ED, Status: Done, Time: 06:34 05/29/2016, User: SFRE, - Ordered for: MD Leon Lloyd, - Entered by: MD Leon Lloyd - emmie May 29, 2016 06:08, - Quantity: 1, Order Name: Lipase, Status: Active, Time: 22:03 05/28/2016, User: LLDO, - Ordered for: MD Leon Lloyd, - Entered by: MD Leon Lloyd - [facility] May 28, 2016 22:03, - Quantity: 1, Order Name: Magnesium, Status: Active, Time: 22:06 05/28/2016, User: LLDO, - Ordered for: MD Leon Lloyd, - Entered by: MD Leon Lloyd - [facility] May 28, 2016 22:06, - Quantity: 1, Order Name: Protime with INR, Status: Active, Time: 22:03 05/28/2016, User: LLDO, - Ordered for: MD Leon Lloyd, - Entered by: MD Leon Lloyd - [facility] May 28, 2016 22:03, - Quantity: 1, Order Name: PTT, Status: Active, Time: 22:03 05/28/2016, User: LLDO, - Ordered for: MD Leon Lloyd, - Entered by: MD Leon Lloyd - [facility] May 28, 2016 22:03, - Quantity: 1, Order Name: SALINE LOCK, Status: Done, Time: 22:14 05/28/2016, User: LPOL, - Ordered for: MD Leon Lloyd, - Entered by: MD Leon Lloyd - [facility] May 28, 2016 22:06, - Quantity: 1, Order Name: Urinalysis with Microscopic, Status: Active, Time: 22:03 05/28/2016, User: LLDO, - Ordered for: MD Leon Lloyd, - Entered by: MD Leon Lloyd - SatMay 28, 2016 22:03, - Quantity: 1, Order Name: XR Chest 1 View Portable, Status: Active, Time: 22:06 05/28/2016, User: CONNOR, - Ordered for: MD Leon Lloyd, - Entered by: MD Leon Lloyd - SatMay 28, 2016 22:06, - Quantity: 1. MEDICATION ADMINISTRATION SUMMARY Drug Name: Duramorph (PF), Dose Ordered: 2 mg, Route: IV Push, Status: Given, Time: 08:49 05/29/2016, Drug Name: Levaquin intravenous, Dose Ordered: 500 mg, Route: IV Piggy Back, Status: Given, Time: 07:27 05/29/2016, Drug Name: *sodium chloride 0.9 % intravenous, Dose Ordered: 125 mL/hr, Route: IV Fluid Infusion, Status: Given, Time: 06:21 05/29/2016, &a-1R&a+25V*p+0X*q6037L*c202B*c15G*c2P*p-0X&a-25V&a+1R Name: Sandi Hayden : 1930 F86 MedRec: [id number] AcctNum: [id number] Prepared: emmie May 29, 2016 11:37 by Interface Page 8 of 21 pMD [facility] EMERGENCY RECORD Drug Name: Zofran intravenous, Dose Ordered: 4 mg, Route: IV Push, Status: Given, Time: 00:01 05/29/2016, Drug Name: Duramorph (PF), Dose Ordered: 2 mg, Route: IV Push, Status: Given, Time: 23:59 05/28/2016, Drug Name: labetalol intravenous, Dose Ordered: 5 mg, Route: IV Push, Status: Given, Time: 22:40 05/28/2016, *Additional information available in notes, Detailed record available in Medication Service section. MEDICATION SERVICE Duramorph (PF): Order: Duramorph (PF) (morphine sulfate/preservative free) - Dose: 2 mg : IV Push Schedule: Now Ordered by: Angel Leon MD Entered by: Angel Leon MD SatMay 28, 2016 23:49 , Acknowledged by: Kenyatta Kaur RN SatMay 28, 2016 23:50 Documented as given by: Kenyatta Kaur RN SatMay 28, 2016 23:59 Patient, Medication, Dose, Route and Time verified prior to administration. Amount given: 2 mg, IV SITE #1 IVP, initial medication, Slowly, Awake and alert- acceptable, Catheter placement confirmed via flush prior to administration, IV site without signs or symptoms of infiltration during medication administration, No swelling during administration, No drainage during administration, IV flushed after administration, Correct patient, time, route, dose and medication confirmed prior to administration, Patient advised of actions and side-effects prior to administration, Allergies confirmed and medications reviewed prior to administration. : Follow Up : Response assessment performed, No signs or symptoms of allergic reaction noted, Decreased pain, _IV SITE #1:_. (SatMay 29, 2016 00:42 LPOL) Duramorph (PF): Order: Duramorph (PF) (morphine sulfate/preservative free) - Dose: 2 mg : IV Push Schedule: Now Ordered by: Zaire Wang MD Entered by: Zaire Wang MD SatMay 29, 2016 08:44 , Acknowledged by: Liss Bell RN SatMay 29, 2016 08:45 Documented as given by: Liss Bell RN SatMay 29, 2016 08:49 Patient, Medication, Dose, Route and Time verified prior to administration. Amount given: 2MG, IV SITE #1 IVP, repeat same medication, Slowly, IV SITE #1 added to existing IV Fluid, Type: NS, Awake and alert- acceptable, Catheter placement confirmed via flush prior to administration, IV site without signs or symptoms of infiltration during medication administration, No swelling during administration, No drainage during administration, IV flushed after administration, Correct patient, time, route, dose and medication confirmed prior to administration, Patient advised of actions and side-effects prior to administration, Allergies confirmed and medications reviewed prior to administration, Patient in position of comfort, Side rails up, Cart &a-1R&a+25V*p+0X*a8741M*c202B*c15G*c2P*p-0X&a-25V&a+1R Name: Hayden Sandi Mane : 1930 F86 MedRec: [id number] AcctNum: [id number] Prepared: SatMay 29, 2016 11:37 by Interface Page 9 of 21 pMD [facility] EMERGENCY RECORD in lowest position, Family at bedside, NAD NOTED. TALKING WITH DAUGHTER. labetalol intravenous: Order: labetalol intravenous (labetalol HCl) - Dose: 5 mg : IV Push Schedule: Now Ordered by: Angel Leon MD Entered by: Angel Leon MD SatMay 28, 2016 22:10 , Acknowledged by: Kenyatta Kaur RN SatMay 28, 2016 22:17 Documented as given by: Kenyatta Kaur RN SatMay 28, 2016 22:40 Patient, Medication, Dose, Route and Time verified prior to administration. Amount given: 5 mg, IV SITE #1 IVP, initial medication, Slowly, Awake and alert- acceptable, Catheter placement confirmed via flush prior to administration, IV site without signs or symptoms of infiltration during medication administration, No swelling during administration, No drainage during administration, IV flushed after administration, Correct patient, time, route, dose and medication confirmed prior to administration, Patient advised of actions and side-effects prior to administration, Allergies confirmed and medications reviewed prior to administration. : Follow Up : Response assessment performed, No signs or symptoms of allergic reaction noted, Decreased blood pressure, _IV SITE #1:_. (SatMay 29, 2016 00:42 LPOL) Levaquin intravenous: Order: Levaquin intravenous (levofloxacin) - Dose: 500 mg : IV Piggy Back POTENTIAL SEVERE INTERACTION: amiodarone oral - Benefits outweigh risks, amio on hold Schedule: Now Ordered by: Zaire Wang MD Entered by: Zaire Wang MD SatMay 29, 2016 07:20 , Acknowledged by: Liss Bell RN SatMay 29, 2016 07:22 Documented as given by: Liss Bell RN SatMay 29, 2016 07:27 Patient, Medication, Dose, Route and Time verified prior to administration. Amount given: 500MG, IV SITE #1 IVPB or drip, initial infusion, Premixed, on an IV pump, via secondary tubing, Slightly drowsey, easily aroused-acceptable, Catheter placement confirmed via flush prior to administration, IV site without signs or symptoms of infiltration during medication administration, No swelling during administration, No drainage during administration, IV flushed after administration, Correct patient, time, route, dose and medication confirmed prior to administration, Patient advised of actions and side-effects prior to administration, Allergies confirmed and medications reviewed prior to administration, Patient in position of comfort, Side rails up, Cart in lowest position. : Follow Up : Response assessment performed, No signs or symptoms of allergic reaction noted, Site inspection shows, No swelling at administration site, No drainage at administration site, No bleeding at site, No bruising noted at site, _IV SITE #1:_, Medication infusion discontinued, on SatMay 29, 2016 08:51, Total &a-1R&a+25V*p+0X*n1017W*c202B*c15G*c2P*p-0X&a-25V&a+1R Name: Sandi Hayden : 1930 F86 MedRec: [id number] AcctNum: [id number] Prepared: SatMay 29, 2016 11:37 by Interface Page 10 of 21 pMD [facility] EM[facility]GENCY RECORD infusion time IV site 1 1 hour, 25 minutes, ., Total amount infused: 500MG, IV Discontinued with catheter intact, IV Line flushed after administration, Advised not to ambulate without assistance, Patient in position of comfort, Side rails up, Cart in lowest position, Family at bedside. (SatMay 29, 2016 08:50 SFRE) sodium chloride 0.9 % intravenous: Order: sodium chloride 0.9 % intravenous (0.9 % sodium chloride) - Dose: 125 mL/hr : IV Fluid Infusion Notes: (Bolus) Ordered by: Angel Leon MD Entered by: Angel Leon MD SatMay 29, 2016 06:08 Documented as given by: Kenyatta Kaur RN SatMay 29, 2016 06:21 Patient, Medication, Dose, Route and Time verified prior to administration. IV SITE #1 IV fluids established for hydration, IV SITE #1 into right antecubital, IV SITE #1 1st bag hung, via primary tubing, via pump tubing, IV SITE #1 on IV pump, Awake and alert- acceptable, Catheter placement confirmed via flush prior to administration, IV site without signs or symptoms of infiltration during medication administration, No swelling during administration, No drainage during administration, IV flushed after administration, Correct patient, time, route, dose and medication confirmed prior to administration, Patient advised of actions and side-effects prior to administration, Allergies confirmed and medications reviewed prior to administration. Zofran intravenous: Order: Zofran intravenous (ondansetron HCl) - Dose: 4 mg : IV Push POTENTIAL SEVERE INTERACTION: amiodarone oral - Benefits outweigh risks, Patient no longer on medication Schedule: Now Ordered by: Angel Leon MD Entered by: Angel Leon MD SatMay 28, 2016 23:54 , Acknowledged by: Kenyatta Kaur RN SatMay 28, 2016 23:58 Documented as given by: Kenyatta Kaur RN SatMay 29, 2016 00:01 Patient, Medication, Dose, Route and Time verified prior to administration. Amount given: 4 mg, IV SITE #1 IVP, initial medication, Slowly, Awake and alert- acceptable, Catheter placement confirmed via flush prior to administration, IV site without signs or symptoms of infiltration during medication administration, No swelling during administration, No drainage during administration, IV flushed after administration, Correct patient, time, route, dose and medication confirmed prior to administration, Patient advised of actions and side-effects prior to administration, Allergies confirmed and medications reviewed prior to administration. : Follow Up : Response assessment performed, _IV SITE #1:_. (SatMay 29, 2016 00:43 LPOL) HPI CVA (23:39 LLDO) CHIEF COMPLAINT: Denies confusion, Denies mental status change, Patient presents for evaluation of motor deficits, Patient &a-1R&a+25V*p+0X*u7084K*c202B*c15G*c2P*p-0X&a-25V&a+1R Name: Sandi Hayden : 1930 F86 MedRec: [id number] AcctNum: [id number] Prepared: SatMay 29, 2016 11:37 by Interface Page 11 of 21 pMD [facility] EM[facility]GENCY RECORD not unresponsive, no sensory deficits, denies Cerebellar Symptoms. HISTORIAN: History provided by patient, History provided by patient's spouse. LOCATION: Symptoms are localized, most severe to the right arm, most severe to the right leg, most severe to speech. QUALITY: Patient is alert and oriented to person, place and time, Jesica coma score is 15, Pain is dull in nature, described as aching, Described as similar to previous episodes. SEVERITY: Maximum severity of symptoms moderate. TIME COURSE: Sudden onset of symptoms, There has been no change in the patient's symptoms over time, are constant. EXACERBATED BY: Patient's condition exacerbated by failed swollow test. RISK FACTORS: Ischemic risk factors, include hypertension, Hemorrhagic risk factors, include advanced age, include hypertension, Subarachnoid hemorrhage risk factors, not applicable for this patient, CVA/TIA risk factors. NIHSS: CVA assessment findings: Level of consciousness: alert, keenly responsive (0), Questions: answers both questions correctly (0), Commands: performs both tasks correctly (0), Best gaze: normal (0), Visual: no visual loss (0), Facial palsy: minor paralysis (1), Motor Left Arm: no drift, arm stays 90/45 degrees for full 10 seconds (0), Motor Right Arm:some effort against gravity, drifts down to bed or support (2), Motor left leg: no drift, leg stays at 30 degrees for full five seconds (0), Motor right leg: some effort against gravity, drifts down to bed or support (2), Limb ataxia: present in one limb (1), Sensory: normal, no sensory loss (0), Best language: no aphasia; normal (0), Dysarthria: mild to moderate: patient slurs at least some words and, at worst, can be understood with some difficulty (1), Extinction and Inattention: visual, tactile, auditory, spatial or personal inattention or extinction to bilateral simultaneous simulation in one of the sensory modalities (1), Total score 8. ACUTE STROKE PROTOCOL: Side and/or site verified, Patient identification confirmed, Sterile procedures observed, Verbal consent obtained, Confirm time of onset or last seen normal 1200 (noon), Onset of symptoms greater than 7 hours:, NIHSS score 8, Inclusion criteria: Patient's age 18 years or older, Clinical diagnosis of ischemic stroke with a measurable neurologic deficit, Time of symptom onset (when patient was last seen normal) Not well established as less than 3 hours before treatment would begin, Patient tolerated the procedure well, After procedure, patient is NOT eligible for tPA therapy, Patient is Not eligible for Interventional therapy. &a-1R&a+25V*p+0X*n3869O*c202B*c15G*c2P*p-0X&a-25V&a+1R Name: Sandi Hayden : 1930 F86 MedRec: [id number] AcctNum: [id number] Prepared: SatMay 29, 2016 11:37 by Interface Page 12 of 21 pMD [facility] EMERGENC[facility] RECORD ROS CONSTITUTIONAL: Historian reports fatigue, reports weakness. (23:55 LLDO) EYES: Negative eye review of systems, Historian denies eye pain, denies eye redness, denies eye discharge. (SatMay 29, 2016 00:09 LLDO) ENT: Negative ears, nose, throat review of systems, Historian denies epistaxis, denies rhinorrhea, denies sinus pain, denies sore throat. (SatMay 29, 2016 00:09 LLDO) CARDIOVASCULAR: Historian denies chest pain, no radiation, Historian denies diaphoresis, denies dyspnea on exertion. (23:55 LLDO) RESPIRATORY: Negative respiratory review of systems, Historian denies cough, denies shortness of breath, denies sputum. (SatMay 29, 2016 00:09 LLDO) GI: Negative gastrointestinal review of systems, Historian denies abdominal pain, denies constipation, denies diarrhea, denies nausea, denies vomiting. (SatMay 29, 2016 00:09 LLDO) GENITOURINARY FEMALE: Negative genitourinary review of systems, Historian denies dysuria, denies frequency, denies urgency. (SatMay 29, 2016 00:09 LLDO) MUSCULOSKELETAL: Negative musculoskeletal review of systems, Historian denies arthralgias, denies back pain, denies injury, denies myalgias, denies neck pain. (SatMay 29, 2016 00:09 LLDO) SKIN: Negative skin review of systems, Historian denies cellulitis, denies rash, denies skin changes, denies skin lesions. (SatMay 29, 2016 00:09 LLDO) NEUROLOGIC: Historian denies confusion, denies dizziness, reports focal weakness, reports gait changes, reports headache, denies irritability, denies lethargy, denies mental status changes, reports paralysis, denies paresthesias, denies seizures, denies sensory changes, reports speech changes. IN HPI. (23:55 LLDO) HEMO/LYMPHATIC: Normal hematologic/lymphatic system review, Historian denies abnormal blood clotting, denies gum bleeding, denies petechiae. (SatMay 29, 2016 00:09 LLDO) ALLERGIC/IMMUNOLOGIC: Normal allergy/immunologic system review, Historian denies eczema, denies environmental allergies, denies food allergies. (SatMay 29, 2016 00:09 LLDO) PSYCHIATRIC: Negative psychiatric review of systems, Historian denies alcohol abuse, denies anxiety, denies depression, denies drug abuse, denies hallucinations. (SatMay 29, 2016 00:09 LLDO) NOTES: All systems reviewed, negative except as described above. (23:55 LLDO) PAST MEDICAL HISTORY MEDICAL HISTORY: Past medical history includes cardiac history, arrhythmia, atrial fibrillation, cardioverted on 04/19/2016, Notes: ARTHRITIS, Flu vaccine up to date, Tetanus not up to date, Pneumococcal vaccine not up to date, Past medical &a-1R&a+25V*p+0X*v6272H*c202B*c15G*c2P*p-0X&a-25V&a+1R Name: Sandi Hayden : 1930 F86 MedRec: [id number] AcctNum: [id number] Prepared: SatMay 29, 2016 11:37 by Interface Page 13 of 21 pMD [facility] EMERG[facility] RECORD history includes cardiac history, congestive heart failure, Past medical history includes history of hyperlipidemia, Past medical history includes history of hypertension. Verified on 04/19/16. (22:10 LPOL) FEMALE SURGICAL HISTORY: Surgical history of tonsillectomy, NECK SX, Surgical history of appendectomy, Surgical history of hysterectomy, surgical history of tonsillectomy. Hemorrhoids. Verified on 04/19/16. (22:10 LPOL) PSYCHIATRIC HISTORY: No previous psychiatric history. Verified on 04/19/16. (22:10 LPOL) SOCIAL HISTORY: Patient drinks alcohol socially, Patient denies drug use, Patient has no smoking history, Lives at home. Verified on 04/19/16. (22:10 LPOL) FAMILY HISTORY: Paternal history of cardiac disease:. (22:10 LPOL) NOTES: Nursing records reviewed, Agree with nursing records, Old chart reviewed, Medication list reviewed. (SatMay 29, 2016 00:09 LLDO) PHYSICAL EXAM CONSTITUTIONAL: Vital Signs Reviewed, Patient afebrile, Pulse normal, Blood pressure, bp elevated, Respiratory rate normal, Patient appears, uncomfortable, Patient appears, in moderate pain distress, headache, Patient alert and oriented to person, place and time, Nursing notes reviewed. (SatMay 29, 2016 00:04 LLDO) HEAD: Head exam included findings of head atraumatic, normocephalic. (SatMay 29, 2016 00:04 LLDO) EYES: Eye exam normal, Eye exam included findings of eyelids normal to inspection, Pupils equally round and reactive to light, Extraocular muscles intact. (SatMay 29, 2016 00:09 LLDO) ENT: ENT exam normal, Ear exam normal, Nose exam normal. (SatMay 29, 2016 00:09 LLDO) NECK: Neck exam normal, Neck exam included findings of normal range of motion, Trachea midline, no meningeal signs, no tenderness. (SatMay 29, 2016 00:09 LLDO) RESPIRATORY CHEST: Respiratory and chest exam normal, Respiratory exam included findings of, Chest exam included findings of chest movement symmetrical, Chest expansion equal. (SatMay 29, 2016 00:09 LLDO) CARDIOVASCULAR: Cardiovascular assessment normal, Cardiovascular exam included findings of heart rate regular rate and rhythm, Heart sounds normal. (SatMay 29, 2016 00:09 LLDO) ABDOMEN FEMALE: Abdominal exam normal, Abdominal exam included findings of abdomen nontender, Bowel sounds normal, no peritoneal signs. (SatMay 29, 2016 00:09 LLDO) BACK: Back exam normal, Back exam included findings of normal inspection, range of motion normal. (SatMay 29, 2016 00:09 LLDO) UPPER EXTREMITY: Upper extremity exam normal, Upper extremity exam included findings of inspection normal, Range of motion normal. &a-1R&a+25V*p+0X*l2089W*c202B*c15G*c2P*p-0X&a-25V&a+1R Name: Sandi Hayden : 1930 F86 MedRec: [id number] AcctNum: [id number] Prepared: SatMay 29, 2016 11:37 by Interface Page 14 of 21 pMD [facility] EMERGENCY RECORD (SatMay 29, 2016 00:09 LLDO) LOWER EXTREMITY: Lower extremity exam normal, Lower extremity exam included findings of inspection normal, Range of motion normal. (SatMay 29, 2016 00:09 LLDO) NEURO: Neuro exam findings include patient oriented to person, place and time, Speech, slurred, Gait abnormal, unable to ambulate, right leg won't hold weight, Jesica coma scale 15, Memory normal, Cranial nerves intact, Deep tendon reflexes normal, Focal motor deficits include, no focal sensory deficits, no cerebellar deficits, no nystagmus. (SatMay 29, 2016 00:04 LLDO) SKIN: Skin exam normal, Skin exam included findings of skin warm, dry, and normal in color, no rash. (SatMay 29, 2016 00:09 LLDO) PSYCHIATRIC: Psychiatric exam normal, Psychiatric exam included findings of patient oriented to person place and time, Normal affect. (SatMay 29, 2016 00:09 LLDO) EVENTS TRANSFER: Triage to Emergency Triage. (SatMay 28, 2016 21:57 LPOL) Emergency Triage to Main ED -02. (21:57 LPOL) Removed from Emergency Main ED -02. (SatMay 29, 2016 11:28 SFRE) RADIOLOGYINTERPRETATION (SatMay 29, 2016 08:09 ABUS) HEAD: Head CT negative, without contrast, no bleed, no mass, no acute changes. SITE IDENTIFICATION SPECIALIST: Preliminary review of CT scans by, ED Physician, Radiologist. DOCTOR NOTES TEXT: accepted by dr. luke at [facility] but asked us to hold until they can clear out some. have 20+ waiting for beds at this time. (23:51 LLDO) sleeping peacefully with good vitals and RA saturation of 97%. awaiting [facility] call for transfer. (SatMay 29, 2016 04:05 LLDO) pt awake and alert. was up on commode but a lot of effort to get her back in bed. putting in jackson. right side seems a bit weaker this morning as doesright side of mouth. (SatMay 29, 2016 06:11 LLDO) Report received from Dr. Leon. Her symptoms appear to be worsening with greater R sided motor deficits. Apparently she had drift with R UE and now she has no movement against gravity. Since she is on Eliquis and some patients can have hemorrhagic conversion of ischemic CVA, will repeat CT scan of brain. IV fluids being used for maintenance and nutrition since pt failed swallow studies. Currently on hold for transfer due to no beds available in [place]. Pt will need stroke care. (SatMay 29, 2016 07:36 ABUS) No new acute changes in head CT. Per radiology and based on clinical exam will need MRI, consult with neurology and post-stroke care/evaluation. the patient's and family were provided with &a-1R&a+25V*p+0X*j2164A*c202B*c15G*c2P*p-0X&a-25V&a+1R Name: Sandi Hayden : 1930 F86 MedRec: [id number] AcctNum: [id number] Prepared: SatMay 29, 2016 11:37 by Interface Page 15 of 21 pMD [facility] EMERGENCY RECORD updates and the plan of care which they verbalized understanding and agreement with. (SatMay 29, 2016 08:09 ABUS) report given to Dr. Domínguez who accepted the patient for direct admit and MRI and post stroke care. (SatMay 29, 2016 10:38 ABUS) SIGN OUT: Patient signed out to, Dr. Wang. (SatMay 29, 2016 06:11 LLDO) PATIENT PLAN: The patient requires a transfer and will be transferred. (23:51 LLDO) The patient requires a transfer and will be transferred. (SatMay 29, 2016 06:11 LLDO) PROBLEM LIST No recorded problems DIAGNOSIS (SatMay 29, 2016 00:12 LLDO) FINAL: PRIMARY: TRANS CERBRAL ISCHEMIC ATTACK UNS, ADDITIONAL: Hypertension. DISPOSITION PATIENT: Disposition Type: Transfer, Disposition: Transfer to [facility]. (SatMay 29, 2016 00:12 LLDO) Patient left the department. (SatMay 29, 2016 11:28 SFRE) PRESCRIPTION No recorded prescriptions IMAGING *EKG: Image captured from scanner. (23:35 LPOL) Page 2 added. Image captured from scanner. (23:35 LPOL) STROKE PACKET: Image captured from scanner. (SatMay 29, 2016 10:56 SFRE) VITAL SIGNS: Image captured from scanner. (SatMay 29, 2016 10:56 SFRE) ADMIN DIGITAL SIGNATURE: ELBA Howe, Oracio. (SatMay 29, 2016 02:59 ADEA) MD Flor, Angel. (SatMay 29, 2016 06:15 LLDO) RESULTS RADIOLOGY: XR Chest 1 View Portable Observe DT: SatMay 28, 2016 22:08, CXRP PORTABLE UPRIGHT FRONTAL CHEST RADIOGRAPH 05/28/2016 COMPARISON: 04/19/2016 HISTORY: &a-1R&a+25V*p+0X*e3369X*c202B*c15G*c2P*p-0X&a-25V&a+1R Name: Sandi Hayden : 1930 F86 MedRec: [id number] AcctNum: [id number] Prepared: SatMay 29, 2016 11:37 by Interface Page 16 of 21 pMD [facility] EMERGENCY RECORD Altered mental status. FINDINGS: Increased linear interstitial density noted bilaterally, stable. No pneumothorax, pleural fluid, fo bety consolidation, or alveolar edema. IMPRESSION: No acute findings. POS: [facility] . (SatMay 29, 2016 06:37 SFRE) CT Brain WO Con Observe DT: SatMay 28, 2016 22:07, BR HEAD CT WITHOUT CONTRAST 05/28/2016 COMPARISON: 06/28/2014 HISTORY: Altered mental status. TECHNIQUE: Serial axial CT imaging at 5-mm intervals from vertex through skull base without contrast. FINDINGS: The imaged paranasal sinuses and mastoid air cells are well-aerated. There is no displaced calvaria l fracture. There is atherosclerotic calcification of the cavernous carotid arteries. There is moderate diffuse cerebral volume loss with associated prominence of the CSF-containing spaces. There is prominent p eriventricular, deep, and subcortical white matter hypodensity, evidence of small vessel disease. No intracranial hemorrhage. IMPRESSION: Chronic findings as above. No intracranial hemorrhage noted. POS: [facility] . (SatMay 29, 2016 06:37 SFRE) CT Brain WO Con Observe DT: SatMay 29, 2016 07:36, BR NONCONTRAST HEAD CT: Comparison: 05-28-16 &a-1R&a+25V*p+0X*b8984J*c202B*c15G*c2P*p-0X&a-25V&a+1R Name: Sandi Hayden : 1930 F86 MedRec: [id number] AcctNum: [id number] Prepared: SatMay 29, 2016 11:37 by Interface Page 17 of 21 pMD [facility] EMERG[facility] RECORD History: CVA. Symptoms have worsened. Headache. Right sided deficit. Comparison: 05-28-16 Technique: Noncontrast head CT is performed from skull base to the skull vertex. FINDINGS: No parenchymal hemorrhage. No extraaxial hematoma. No midline shift. Basilar cisterns are patent. Age appropriate atrophy. Cortical bardales-white matter differentiation is preserved. Ventricles and sulci are patent and symmetric. Persistent white matter hypodensity due to chronic small vessel ischemic changes. Stable calcification in the left deep bardales matter structures. Mild bilateral ethmoidal mucosal thickening. Atherosclerosis of the cavernous carotid arteries. In tact calvarium. IMPRESSION: 1. No acute intracranial process. 2. No significant interval change. 3. Further evaluation with brain MRI barring any contraindications. POS: [facility] . (SatMay 29, 2016 09:44 SFRE) LABORATORY: Magnesium Collection DT: SatMay 28, 2016 23:04, Magnesium 2.1 mg/dL, Range (1.6-2.6), NOTE: Higher values can be expected in females during menses . (SatMay 29, 2016 06:37 SFRE) Lipase Collection DT: SatMay 28, 2016 23:04, Lipase 16 U/L, Range (8-78). (SatMay 29, 2016 06:37 SFRE) CK (CPK) Collection DT: SatMay 28, 2016 23:04, CK (CPK) 36 U/L, Range (29-168). (SatMay 29, 2016 06:37 SFRE) Comprehensive Metabolic Panel Collection DT: SatMay 28, 2016 23:04, Sodium 138 mmol/L, Range (136-145), Potassium 3.9 mmol/L, Range (3.5-5.1), Chloride 101 mmol/L, Range (98-107), Carbon Dioxide 23 mmol/L, Range (23-31), &a-1R&a+25V*p+0X*h8293Q*c202B*c15G*c2P*p-0X&a-25V&a+1R Name: Sandi Hayden : 1930 F86 MedRec: [id number] AcctNum: [id number] Prepared: SatMay 29, 2016 11:37 by Interface Page 18 of 21 pMD [facility] EM[facility] RECORD Anion Gap 18 mmol/L, Range (10-20), BUN (Urea Nitrogen) 11 mg/dL, Range (9.8-20.1), Creatinine 0.67 mg/dL, Range (0.6-1.1), Estimated GFR-MDRD 84 , Reference Range for Estimated GFR: Greater than 90, mL/min/1.73 m2 NOTE: The MDRD equation has not been validated for use, with the elderly (over 70 years of age), women, patients with, serious comorbid condition or persons with extremes of body size, muscle, mass, or nutritional status. , Glucose 103 mg/dL, Range (83-110), Calcium 8.9 mg/dL, Range (7.8-10.44), Bilirubin, Total 0.5 mg/dL, Range (0.2-1.2), Protein, Total 6.4 g/dL, Range (5.8-8.1), NOTE: Plasma values are generally 0.3 to 0.5 g/dL higher than serum values, due to the presence of fibrinogen. , Albumin 3.8 g/dL, Range (3.4-4.8), Globulin 2.6 g/dL, Range (2.4-3.5), Alb/Glob Ratio 1.5 g/dL, Range (1.2-2.2), Alkaline Phosphatase 65 U/L, Range (40-150), AST (SGOT) 16 U/L, Range (5-34), ALT (SGPT) 15 U/L, Range (0-55). (SatMay 29, 2016 06:37 SFRE) B type Natriuretic Peptide Collection DT: SatMay 28, 2016 23:04, B type Natriuretic Peptide 48.5 pg/mL, Range (0-100). (SatMay 29, 2016 06:37 SFRE) Cardiac Profile w/CKMB & TropI Collection DT: SatMay 28, 2016 23:04, CKMB 0.9 ng/mL, Range (0-6.6), Troponin I Less than 0.010 ng/mL, Range (< 0.028), Reference Range , 0.00 - 0.028 ng/mL Negative 0.029 - 0.29 ng/mL , Indeterminate Greater or Equal to 0.3 ng/mL Strongly suggests LA , . (SatMay 29, 2016 06:37 SFRE) PTT Collection DT: SatMay 28, 2016 23:04, See comment below , Anticoagulant? NONE Medical Necessity SUSPECT COAGULOPATHY , *PTT 39.4 - H SEC, Range (22.9-36.1). (SatMay 29, 2016 06:37 SFRE) Protime with INR Collection DT: SatMay 28, 2016 23:04, See comment below , Anticoagulant? NONE Medical Necessity SUSPECT COAGULOPATHY , *Prothrombin Time 17.1 - H SEC, Range (12.0-14.7), INR-International Normal Ratio 1.4 , ATTENTION: READ CAREFULLY , The, recommended therapeutic ranges for oral anticoagulant treatments are: , &a-1R&a+25V*p+0X*n4489B*c202B*c15G*c2P*p-0X&a-25V&a+1R Name: Sandi Hayden Mane : 1930 F86 MedRec: [id number] AcctNum: [id number] Prepared: SatMay 29, 2016 11:37 by Interface Page 19 of 21 pMD [facility] EMERGENCY RECORD , Low Intensity: 1.5 - 2.0 Moderate Intensity: 2.0, - 3.0 High Intensity (1): 2.5 - 3.5 High, Intensity (2): 3.0 - 4.0 CRITICAL: >, 4.0 . (SatMay 29, 2016 06:37 SFRE) Accuchek Collection DT: SatMay 28, 2016 23:09, Accuchek 94 mg/dL, Range (70-110). (SatMay 29, 2016 06:37 SFRE) CBC with Differential Collection DT: SatMay 28, 2016 23:04, White Blood Cell (WBC) Count 6.7 thou/uL, Range (4.8-10.8), *Red Blood Cell (RBC) Count 3.85 - L mill/uL, Range (4.20-5.40), Hemoglobin 13.1 g/dL, Range (12.0-16.0), Hematocrit 38.5 %, Range (36.0-47.0), *Mean Corpuscular Volume 99.8 - H fl, Range (81.0-99.0), *Mean Corpuscular Hemoglobin 33.9 - H pg, Range (27.0-31.0), Mean Corpuscular HGB CONC 34.0 g/dL, Range (32.0-36.0), RBC Distribution Width 12.3 %, Range (11.5-14.5), Platelet Count 338 thou/uL, Range (130-400), *Mean Platelet Volume 6.6 - L fL, Range (7.4-10.4), %Neutrophils 65.3 %, Range (42.0-75.0), *%Lymphocytes 20.2 - L %, Range (21.0-51.0), *%Monocytes 11.2 - H %, Range (0.0-10.0), %Eosinophils 2.3 %, Range (0.0-10.0), *%Basophils 1.1 - H %, Range (0.0-1.0), #Neutrophils 4.4 thou/uL, Range (1.40-6.50), #Lymphocytes 1.4 thou/uL, Range (1.20-3.40), *#Monocytes 0.8 - H thou/uL, Range (0.11-0.59), #Eosinphils 0.2 thou/uL, Range (0.0-0.7), #Basophils 0.1 thou/uL, Range (0.0-0.2). (SatMay 29, 2016 06:37 SFRE) Urinalysis with Microscopic Collection DT: SatMay 29, 2016 06:45, Color Yellow , Range (Yellow), Clarity Hazy , Range (Clear), Specific [place], Urine 1.025 , Range (1.005-1.030), pH, Urine 6.5 , Range (5.0-9.0), *Leukocyte Small - H , Range (Negative), Nitrite Negative , Range (Negative), Protein, Urine (Dipstick) Trace mg/dL, Range (Neg-Trace), Glucose, Urine (Dipstick) Negative mg/dL, Range (Negative), Ketone, Urine Negative mg/dL, Range (Negative), Urobilinogen 0.2 mg/dL, Range (0.2-1.0), Bilirubin Negative , Range (Negative), *Blood, Urine Small - H , Range (Negative), *RBC/HPF 7-10 - H HPF, Range (0-3), *WBC/HPF Greater Than 50-TNTC HPF, * - H , Range (0-3). (SatMay 29, 2016 07:08 SFRE) &a-1R&a+25V*p+0X*i0843B*c202B*c15G*c2P*p-0X&a-25V&a+1R Name: Sandi Hayden : 1930 F86 MedRec: [id number] AcctNum: [id number] Prepared: SatMay 29, 2016 11:37 by Interface Page 20 of 21 pMD [facility] EMERGENCY RECORD Perez: DANIS=MD Felipe, [place] MILLER=ELBA Howe, Oracio VALERO=ELBA Mo, Carolyn BLOOM=MD Flor, Angel PRECIADO=ELBA Kaur, Kenyatta TURNERE=ELBA Bell, Liss &a-1R&a+25V*p+0X*[id number]*c202B*c15G*c2P*p-0X&a-25V&a+1R Name: Sandi Hayden : 1930 F86 MedRec: [id number] AcctNum: [id number] Prepared: Birgit May 29, 2016 11:37 by Interface Page 21 of 21 pMD MTDD
[2016-05-29 06:56] LABS: Bilirubin Negative (Negative); Blood, Urine Small (Negative); Glucose, Urine (Dipstick) Negative (Negative); Leukocyte Small (Negative); Nitrite Negative (Negative); Protein, Urine (Dipstick) Trace mg/dL (Neg-Trace); Specific Gravity, Urine 1.025 (1.005-1.030); Urobilinogen 0.2 mg/dL (0.2-1.0); pH, Urine 6.5 (5.0-9.0)
[2016-05-29 07:05] LABS: Clarity Hazy (Clear)
[2016-05-29] MEDS ORDERED: Levofloxacin 500 mg/D5W 100 ml Premix Bag ONE (07:23)
[2016-05-29] MEDS ORDERED: Morphine Sulfate 2 MG/ML SYRINGE ONE (08:46)
--- NOTE | 2016-05-29 09:15 | CT ---
NONCONTRAST HEAD CT: Comparison: 05-28-16 History: CVA. Symptoms have worsened. Headache. Right sided deficit. Comparison: 05-28-16 Technique: Noncontrast head CT is performed from skull base to the skull vertex. FINDINGS: No parenchymal hemorrhage. No extraaxial hematoma. No midline shift. Basilar cisterns are patent. Age appropriate atrophy. Cortical bardales-white matter differentiation is preserved. Ventricles and sulci are patent and symmetric. Persistent white matter hypodensity due to chronic small vessel ischemic changes. Stable calcification in the left deep bardales matter structures. Mild bilateral ethmoidal mucosal thickening. Atherosclerosis of the cavernous carotid arteries. In tact calvarium. IMPRESSION: 1. No acute intracranial process. 2. No significant interval change. 3. Further evaluation with brain MRI barring any contraindications. POS: [facility]
== END 2016-05-29 11:22 | disposition short-term general hospital (02) ==
LOC: MADERS 21:46
DX: G45.9 Transient cerebral ischemic attack, unspecified (principal); I10 Essential (primary) hypertension; I48.91 Unspecified atrial fibrillation; I11.0 Hypertensive heart disease with heart failure; I50.9 Heart failure, unspecified; E78.5 Hyperlipidemia, unspecified; Z90.89 Acquired absence of other organs; Z90.710 Acquired absence of both cervix and uterus; Z90.49 Acquired absence of other specified parts of digestive tract; Z79.891 Long term (current) use of opiate analgesic; Z79.899 Other long term (current) drug therapy
CPT/HCPCS: 36416; 51702; 70450; 71010; 80053; 81001; 82553; 83690; 83735; 83880; 84484; 85025; 85610; 85730; 87077; 87086; 87186; 93005; 94760; 96361; 96365; 96375; 96376; J1956; J2270; J2405; J7050

== ENCOUNTER 2016-08-24 08:09 | Outpatient (CLI) | payer MEDICARE ==
[2016-08-24 08:30] LABS: #Eosinphils 0.2 thou/uL (0.0-0.7); #Lymphocytes 1.4 thou/uL (1.20-3.40); #Monocytes 0.6 thou/uL (0.11-0.59); %Basophils 0.7 % (0.0-1.0); %Eosinophils 2.9 % (0.0-10.0); %Lymphocytes 22.9 % (21.0-51.0); %Monocytes 9.7 % (0.0-10.0); %Neutrophils 63.7 % (42.0-75.0); Hemoglobin 13.4 g/dL (12.0-16.0); Mean Corpuscular HGB CONC 32.1 g/dL (32.0-36.0); Mean Corpuscular Hemoglobin 32.1 pg (27.0-31.0); Mean Corpuscular Volume 100.1 fl (81.0-99.0); Mean Platelet Volume 6.4 fL (7.4-10.4); Platelet Count 326 thou/uL (130-400); RBC Distribution Width 12.7 % (11.5-14.5); Red Blood Cell (RBC) Count 4.16 mill/uL (4.20-5.40); White Blood Cell (WBC) Count 6.3 thou/uL (4.8-10.8)
[2016-08-24 09:12] LABS: ALT (SGPT) 21 U/L (0-55); AST (SGOT) 23 U/L (5-34); Albumin 3.8 g/dL (3.4-4.8); Alkaline Phosphatase 65 U/L (40-150); Anion Gap 13 mmol/L (10-20); BUN (Urea Nitrogen) 11 mg/dL (9.8-20.1); Bilirubin, Direct 0.2 mg/dL (0.1-0.3); Bilirubin, Total 0.3 mg/dL (0.2-1.2); Calc. Creatinine Clearance 0 mL/min (70-130); Calcium 8.9 mg/dL (7.8-10.44); Carbon Dioxide 28 mmol/L (23-31); Cardiac Risk 2.3 (Less than 4.5); Chloride 103 mmol/L (98-107); Cholesterol 159 mg/dL (< 200 Desired); Estimated GFR-MDRD 70; Glucose 94 mg/dL (83-110); HDL Cholesterol 68 mg/dL (>60 Neg Risk); LDL Cholesterol, Calculated 71 mg/dL; Potassium 4.4 mmol/L (3.5-5.1); Protein, Total 6.4 g/dL (5.8-8.1); Sodium 140 mmol/L (136-145); Triglycerides 102 mg/dL (Less than 150)
== END 2016-08-24 08:10 ==
LOC: MADLABBHPM 08:09
PROVIDERS: ATTEND Internal Medicine Cardiovascular Disease
DX: I63.9 Cerebral infarction, unspecified (principal)
CPT/HCPCS: 36415; 80048; 80061; 80076; 84443; 85025

== ENCOUNTER 2016-11-20 16:16 | Emergency (ER) | payer MEDICARE ==
[~2016-11-20 16:16] MED LIST changes: -Sodium Chloride 0.9% 1,000 ML BAG ONE; +Sodium Chloride Irrig Solution 250 ML BOT ONE
[2016-11-20] MEDS ORDERED: Acetaminophen/Codeine 30-300mg Tablet ONE (18:02)
[2016-11-20] MEDS ORDERED: Doxycycline 100 MG CAP ONE (18:02)
== END 2016-11-20 18:15 | disposition home or self-care (01) ==
LOC: MADERS 16:16
DX: S01.01XA Laceration without foreign body of scalp, initial encounter (principal); I48.91 Unspecified atrial fibrillation; I11.0 Hypertensive heart disease with heart failure; I50.9 Heart failure, unspecified; E78.5 Hyperlipidemia, unspecified; Z79.899 Other long term (current) drug therapy; W19.XXXA Unspecified fall, initial encounter
CPT/HCPCS: 99282

== ENCOUNTER 2016-11-22 09:11 | Outpatient (CLI) | payer MEDICARE ==
[2016-11-22 09:46] LABS: #Basophils 0.1 thou/uL (0.0-0.2); #Eosinphils 0.6 thou/uL (0.0-0.7); #Lymphocytes 1.1 thou/uL (1.20-3.40); #Monocytes 0.6 thou/uL (0.11-0.59); #Neutrophils 4.9 thou/uL (1.40-6.50); %Eosinophils 8.1 % (0.0-10.0); %Lymphocytes 15.2 % (21.0-51.0); %Monocytes 7.8 % (0.0-10.0); Hemoglobin 12.2 g/dL (12.0-16.0); Mean Corpuscular Volume 100.2 fl (81.0-99.0); Mean Platelet Volume 6.4 fL (7.4-10.4); Platelet Count 341 thou/uL (130-400); RBC Distribution Width 12.8 % (11.5-14.5); Red Blood Cell (RBC) Count 3.69 mill/uL (4.20-5.40); White Blood Cell (WBC) Count 7.2 thou/uL (4.8-10.8)
[2016-11-22 09:57] LABS: ALT (SGPT) 67 U/L (8-55); AST (SGOT) 56 U/L (5-34); Albumin 3.5 g/dL (3.4-4.8); Alkaline Phosphatase 68 U/L (40-150); Anion Gap 17 mmol/L (10-20); BUN (Urea Nitrogen) 8 mg/dL (9.8-20.1); Bilirubin, Direct 0.2 mg/dL (0.1-0.3); Bilirubin, Total 0.4 mg/dL (0.2-1.2); Calc. Creatinine Clearance 0 mL/min (70-130); Calcium 8.6 mg/dL (7.8-10.44); Carbon Dioxide 23 mmol/L (23-31); Cardiac Risk 2.5 (Less than 4.5); Chloride 103 mmol/L (98-107); Cholesterol 160 mg/dl (< 200 Desired); Estimated GFR-MDRD 72; Glucose 97 mg/dL (83-110); HDL Cholesterol 63 mg/dL (>60 Neg Risk); LDL Cholesterol, Calculated 80 mg/dL; Potassium 4.1 mmol/L (3.5-5.1); Protein, Total 6.4 g/dL (6.0-8.3); Sodium 139 mmol/L (136-145); Triglycerides 87 mg/dL (Less than 150)
== END 2016-11-22 09:12 ==
LOC: MADLABBHPM 09:11
PROVIDERS: ATTEND Family Medicine
DX: E78.5 Hyperlipidemia, unspecified (principal); I48.91 Unspecified atrial fibrillation; I10 Essential (primary) hypertension
CPT/HCPCS: 36415; 80048; 80061; 80076; 85025

== ENCOUNTER 2016-11-26 11:39 | Outpatient (CLI) | payer MEDICARE ==
--- NOTE | 2016-11-26 13:30 | CT ---
NONCONTRAST HEAD CT HISTORY: The patient fell nine days ago. Contusion of the posterior left aspect of the head. COMPARISON: 05/29/2016 TECHNIQUE: A noncontrast head CT is performed from the skull base to the skull vertex. FINDINGS: No parenchymal hemorrhage. No extraaxial hematoma. No midline shift. Age appropriate atrophy. Cortical bardales white matter differentiation is preserved. The ventricles and sulci are patent and symmetric. White matter hypodensities due to chronic small vessel ischemic changes are noted. Hypoattenuation along the left aspect of the brainstem is redemonstrated. Remote lacunar infarcts a re favored. Sagittal and coronal reformatted images demonstrate preservation of the calvarium. Intrinsic hyperdensity in the left globus pallidus is noted, compatible with mineralization/calcific ation. Adequate aeration of the sinuses and mastoid air cells. Small posterior left scalp hematoma. Underlying calvarium is intact. IMPRESSION: 1. No intracranial posttraumatic sequelae. 2. Small left parietal scalp hematoma. 3. Chronic small vessel ischemic change of the white matter noted. 4. Hyperdensity in the left globus pallidus, unchanged. POS: [facility]
== END 2016-11-26 11:40 | disposition home or self-care (01) ==
LOC: MADCT 11:39
PROVIDERS: ATTEND Family Medicine
DX: S00.03XA Contusion of scalp, initial encounter (principal); T14.8 Other injury of unspecified body region
CPT/HCPCS: 70450

== ENCOUNTER 2016-12-03 16:33 | Outpatient (CLI) | payer MEDICARE ==
--- NOTE | 2016-12-03 18:50 | RAD ---
1 VIEW PELVIS: Date: 12/03/16 HISTORY: Fall 3 weeks ago. Pain. COMPARISON: None. FINDINGS: Sacral ala are suboptimally evaluated. Bony pelvis is intact. Contour of the left and right femoral head are maintained on this single projection. Hip joint space is symmetric. Suboptimal evaluation o f the right femoral neck. If there is concern, dedicated two views of the right hip can be performed . IMPRESSION: 1. No obvious bony pelvic fracture. 2. Suboptimal evaluation of the right hip. POS: [facility]
--- NOTE | 2016-12-03 18:52 | RAD ---
2 VIEWS RIGHT HIP: Date: 12/03/16 COMPARISON: None. HISTORY: Fall 3 weeks ago, pain. FINDINGS: There is mild superior joint space narrowing and mild lateral acetabular osteophyte formation. No di splaced fracture or evidence of dislocation seen. IMPRESSION: No displaced fracture or dislocation. If symptoms persist, MRI may be beneficial given history of re cent fall and pain. POS: [facility]
== END 2016-12-03 16:34 | disposition home or self-care (01) ==
LOC: MADRAD 16:33
PROVIDERS: ATTEND Family Medicine
DX: M25.551 Pain in right hip (principal)
CPT/HCPCS: 72170

== ENCOUNTER 2017-01-10 23:07 | Inpatient (IN) | payer MEDICARE ==
[2017-01-10 23:54] LABS: #Basophils 0.1 thou/uL (0.0-0.2); #Eosinphils 0.1 thou/uL (0.0-0.7); #Lymphocytes 0.6 thou/uL (1.20-3.40); #Monocytes 0.4 thou/uL (0.11-0.59); %Basophils 1.1 % (0.0-1.0); %Eosinophils 1.2 % (0.0-10.0); %Lymphocytes 5.4 % (21.0-51.0); %Monocytes 4.4 % (0.0-10.0); Mean Corpuscular HGB CONC 33.1 g/dL (32.0-36.0); Mean Corpuscular Hemoglobin 32.1 pg (27.0-31.0); Mean Corpuscular Volume 97.1 fl (81.0-99.0); Mean Platelet Volume 6.8 fL (7.4-10.4); Platelet Count 365 thou/uL (130-400); RBC Distribution Width 12.7 % (11.5-14.5); Red Blood Cell (RBC) Count 4.05 mill/uL (4.20-5.40); White Blood Cell (WBC) Count 10.2 thou/uL (4.8-10.8)
--- NOTE | 2017-01-10 23:56 | RAD ---
AP VIEW OF THE CHEST: INDICATION: Fever. COMPARISON: Prior study dated 05/28/2016. FINDINGS: Chronic lung changes are stable. No acute airspace opacity or pleural effusion is noted. Heart siz e is within normal limits. IMPRESSION: No acute cardiopulmonary abnormality. POS: [facility]
[2017-01-11 00:04] LABS: INR-International Normal Ratio 1.2; PTT 33.7 SEC (22.9-36.1); Prothrombin Time 15.7 SEC (12.0-14.7)
[2017-01-11 00:14] LABS: ALT (SGPT) 48 U/L (8-55); AST (SGOT) 37 U/L (5-34); Albumin 3.6 g/dL (3.4-4.8); Alkaline Phosphatase 97 U/L (40-150); Anion Gap 16 mmol/L (10-20); BUN (Urea Nitrogen) 13 mg/dL (9.8-20.1); Bilirubin, Total 0.4 mg/dL (0.2-1.2); CK (CPK) 39 U/L (29-168); Calc. Creatinine Clearance 0 mL/min (70-130); Calcium 8.8 mg/dL (7.8-10.44); Carbon Dioxide 24 mmol/L (23-31); Chloride 101 mmol/L (98-107); Estimated GFR-MDRD 66; Globulin 3.4 g/dL (2.4-3.5); Glucose 121 mg/dL (83-110); Sodium 137 mmol/L (136-145)
[2017-01-11 00:25] LABS: CKMB 0.7 ng/mL (0-6.6); Troponin I 0.024 ng/mL (< 0.028)
[2017-01-11 00:53] LABS: Bilirubin Negative (Negative); Blood, Urine Moderate (Negative); Clarity Cloudy (Clear); Glucose, Urine (Dipstick) Negative (Negative); Leukocyte Small (Negative); Nitrite Positive (Negative); Protein, Urine (Dipstick) 100 mg/dL (Neg-Trace); Specific Gravity, Urine 1.015 (1.005-1.030); pH, Urine 6.5 (5.0-9.0)
[2017-01-11 00:56] LABS: Bacteria/HPF 4+ HPF (None Seen); RBC/HPF 21-50 HPF (0-3); Squamous Epithelial 0-3 HPF (0-3)
[2017-01-11] MEDS ORDERED: Enoxaparin Sodium 30 MG/0.3 ML SYRINGE ONE (02:12)
[2017-01-11] MEDS ORDERED: HYDROcodone/Acetaminophen 10/325 mg Tablet ONE (02:12)
[2017-01-11 02:52] VITALS: BMI 24.5
[2017-01-11] MEDS ORDERED: Acetaminophen 325 MG TAB PO PRN (03:22)
[2017-01-11] MEDS ORDERED: Zolpidem Tartrate 5 MG TAB PO PRN (03:22)
[2017-01-11] MEDS ORDERED: HYDROcodone/Acetaminophen 5/325 mg Tablet PO PRN ×3 (03:22→10:38)
[2017-01-11] MEDS ORDERED: Bisacodyl 5 MG TAB PO PRN (03:22)
[2017-01-11] MEDS ORDERED: Loperamide HCl 2 MG CAP PO PRN ×2 (03:22)
[2017-01-11] MEDS: Sodium Chloride 0.9% 1,000 ML IV SCH ×3 (03:53→15:39)
[2017-01-11] MEDS ORDERED: Enoxaparin Sodium 30 MG/0.3 ML SYRINGE SC SCH (06:00)
[2017-01-11] MEDS ORDERED: Sodium Chloride 0.9% 1,000 ML BAG ONE (07:16)
[2017-01-11] MEDS: Pantoprazole 40 MG VIAL IVP SCH (07:58)
[2017-01-11] MEDS: Ondansetron HCl/PF 4 MG/2 ML Vial SLOW IVP PRN (08:03)
[2017-01-11] MEDS ORDERED: HYDROcodone/Acetaminophen 7.5/325 mg Tablet PO PRN (10:36)
[2017-01-11] MEDS ORDERED: Gabapentin 300 MG CAP PO PRN (10:45)
--- NOTE | 2017-01-11 11:23 | HP ---
HISTORY OF PRESENT ILLNESS: The patient is an 86-year-old white female who has a history of atrial fibrillation with the rates controlled and on anticoagulation with Eliquis, hypertension, and a stroke involving the left pontine that left her with some mild right-sided weakness that occurred in 2016. She also has chronic low back pain and fibromyalgia and chronic headaches that are controlled with hydrocodone/acetaminophen 7.5/325 twice a day if needed. The patient needs a little assistance with her dressing and bathing, otherwise she is ambulatory with a walker. The patient was brought into the emergency room by her early on the morning of the day of admission complaining of increased weakness, increased dizziness, headache and fever of 102.6. She was nauseated. She had gotten up to go to the bathroom during the night and sat down on the commode and was just too weak to get up by herself. The ambulance was summoned and she was brought to the emergency room. In the emergency room, she was evaluated and found to have a temperature of 102.6. Her lab showed a H\T\H of 13 and 39.3 with a white blood cell count of 10,200 with 88% segs, 5% lymphocytes, and a platelet count of 365,000. Her PT was 15.7, INR 1.2. Sodium 137, potassium 4, BUN 13, creatinine 0.82, glucose 121, AST 37, CK-MB 0.7, troponin I is 0.0024, B-type natriuretic peptide 41.5. Her urine showed WBCs too numerous to count. Specific gravity was 1.015 and her nitrite was positive and there was 4+ bacteria. Her chest x-ray showed no evidence of infiltrate nor pleural effusion. Heart size was within normal limits. The patient had blood cultures drawn x2. Urine culture was obtained. The patient was started on IV fluids, was given Tylenol for pain and received an initial dose of IV Rocephin and then was admitted with the diagnosis of urinary tract infection. The patient was seen early on the morning of 01/11/2017. At that time she was having a hard chill and was having a hard time telling me what had occurred. She did tell me she was not hurting anywhere, was just cold and shaking. 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 The patient was hospitalized at [facility] in 05/2016 for a right facial droop and right hemiparalysis. Her workup showed with MRI a left pontine infarct. CTA of the head and neck showed diminutive left vertebral artery. No other high grade stenosis. She was already on Eliquis and low dose aspirin 81 mg was added. She went to rehab and since that time has shown marked improvement. The facial droop has resolved. She has been left with a little bit of weakness on the right side and she requires some assistance at home. She ambulates with the use of a walker. The initial swallowing difficulty she had, has resolved. She falls easily. She had recently had a fall with a laceration to her scalp with some oozing of blood for a couple of days that resolved. Her CT scan of the brain was done and showed no acute changes. Her Eliquis was reduced then to 2.5 mg twice a day from 5mg bid. She has had no subsequent falls. The patient also during that admission was found to have a type 2 odontoid fracture with nonunion. This was not acute and felt to be secondary to a fall that she had experienced a year before. This was felt to be stable. The patient has had an appendectomy , hysterectomy, colonoscopy, last done in 2004 showed diverticulosis. The patient has had a cervical fusion in 1973, hemorrhoidectomy and also tonsillectomy. The patient was noted to have some mild abnormality of her liver function studies on 12/27/2016 for which her simvastatin was held. Patient is a 3, para 3. PRESENT MEDICATIONS: Folic acid 1 mg daily, gabapentin 600 mg b.i.d., losartan 100 mg daily, amiodarone 200 mg bid, hydrocodone/acetaminophen 7.5/325 one tablet b.i.d. as needed, furosemide 20 mg daily, aspirin 81 mg daily, Eliquis 2.5 mg b.i.d., pantoprazole 40 mg daily, Zofran oral disintegrating tablets 4 mg 1 every 6 hours p.r.n. nausea. ALLERGIES: MELOXICAM, GI upset. PENICILLIN, SULFA DRUGS. REVIEW OF SYSTEMS: GENERAL: The patient has not had any recent weight loss. She has had no fever up until the morning of the day of admission. HEAD AND NECK: No complaints other than the dizziness that started on the skein tier of the day of admission. PULMONARY: No shortness of breath. CARDIOVASCULAR: No chest pain. GASTROINTESTINAL: No nausea, vomiting, diarrhea. : No complaints. ADLs: The patient was able to ambulate with the use of a walker, able to feed herself. She had at times trouble with balance and falls easily. She has someone to assist her with dressing and bathing. She is continent of urine and stools. HABITS: Alcohol none. Tobacco none. SOCIAL HISTORY: Patient is and lives with her and has a caregiver who helps in the daytime, along with her . Family helps with all her instrumental ADLs. CODE STATUS: Full code. PHYSICAL EXAMINATION: GENERAL: Shows an 86-year-old white female who is lying in bed. She is having chills and having a hard time talking due to the chills. Her temperature was 102.9. HEAD: Normocephalic and atraumatic. EARS: TMs are clear. EYES: Pupils are equal, round, and reactive. NOSE: Normal. MOUTH AND THROAT: Normal. VITAL SIGNS: Temperature 102.9, pulse 74, respirations 16, O2 sat 94%, blood pressure 129/61. Her weight is 129. Her height is 60 inches. LUNGS: Clear except for some coarse rales at the left base that diminish with deep inspiration. Remainder of the chest is clear. HEART: Regular rate. ABDOMEN: Soft, nontender. EXTREMITIES: No edema. NEUROLOGIC: The patient is alert, but having a hard time talking due to the tremors. She recognizes me and knows she is in the hospital. She has generalized weakness. IMPRESSION: 1. Urinary tract infection/pyelonephritis. A. Presenting with high fever and chills. 2. Hypertension. 3. Atrial fibrillation. A. Rate controlled on anticoagulation and amiodarone. 4. Hypertension. 5. Left pontine stroke. A. Presenting with right facial drooping, some mild dysphagia and right hemiplegia 05/2016. B. Strength markedly improved. C. Managed with the Eliquis and low dose aspirin. 6. Diastolic congestive heart failure. A. No evidence of acute congestive heart failure. 7. Type 2 odontoid fracture with nonunion, chronic, asymptomatic. 8. Hypertension. 9. Hyperlipidemia. 10. Chronic low back pain secondary to spondylosis of the lumbar spine. 11. Fibromyalgia. 12. Some weakness and gait abnormality. A. Increased fall risk. 13. Migraine headaches. PLAN: The patient has been admitted to the hospital and started on cautious IV hydration and IV antibiotics and Tylenol will be given for her fever. The patient will be continued on her aspirin and Eliquis. Blood and urine cultures have been obtained. See orders. MTDD
[2017-01-11] MEDS: HYDROcodone/Acetaminophen 7.5/325 mg Tablet PO PRN ×2 (12:06→20:43)
[2017-01-11] MEDS: Apixaban 5 MG TAB PO SCH (20:45)
[2017-01-12] MEDS: Sodium Chloride 0.9% 1,000 ML IV SCH (01:24)
[2017-01-12] MEDS: Ondansetron HCl/PF 4 MG/2 ML Vial SLOW IVP PRN ×2 (01:24→12:12)
[2017-01-12 05:26] LABS: Band 2 % (5-11); Eosinophils 2 % (0-10); Lymphocytes 9 % (21-51); Monocytes 8 % (0-10); Neutrophil 79 % (42-75); Reflex for Review?? NO
[2017-01-12 05:27] LABS: Hemoglobin 10.3 g/dL (12.0-16.0); Hypochromia MODERATE=16-30 cells (100X) (0-5/hpf); MDiff Complete? YES; Mean Corpuscular HGB CONC 32.9 g/dL (32.0-36.0); Mean Corpuscular Volume 97.2 fl (81.0-99.0); PLT Morphology Comment Appears Adequate; Platelet Count 294 thou/uL (130-400); RBC Distribution Width 12.7 % (11.5-14.5); Red Blood Cell (RBC) Count 3.24 mill/uL (4.20-5.40); White Blood Cell (WBC) Count 9.7 thou/uL (4.8-10.8)
[2017-01-12 05:29] LABS: ALT (SGPT) 156 U/L (8-55); AST (SGOT) 168 U/L (5-34); Albumin 2.8 g/dL (3.4-4.8); Alkaline Phosphatase 66 U/L (40-150); Anion Gap 12 mmol/L (10-20); BUN (Urea Nitrogen) 8 mg/dL (9.8-20.1); Bilirubin, Total 0.3 mg/dL (0.2-1.2); Calc. Creatinine Clearance 62 mL/min (70-130); Calcium 7.8 mg/dL (7.8-10.44); Carbon Dioxide 21 mmol/L (23-31); Chloride 109 mmol/L (98-107); Estimated GFR-MDRD Greater than 90; Globulin 2.5 g/dL (2.4-3.5); Glucose 93 mg/dL (83-110); Potassium 3.5 mmol/L (3.5-5.1); Protein, Total 5.3 g/dL (6.0-8.3); Sodium 138 mmol/L (136-145)
[2017-01-12] MEDS: Apixaban 5 MG TAB PO SCH ×2 (08:45→20:15)
[2017-01-12] MEDS: Aspirin 81 mg Enteric Coated Tablet PO SCH (08:46)
[2017-01-12] MEDS: Folic Acid 1 MG TAB PO SCH (08:46)
[2017-01-12] MEDS: Losartan Potassium 25 MG TAB PO SCH (08:47)
[2017-01-12] MEDS: Pantoprazole 40 MG VIAL IVP SCH (08:47)
[2017-01-12] MEDS: Furosemide 20 MG TAB PO SCH (08:47)
[2017-01-12] MEDS: NS 0.9% w/ 20 MEQ KCL 1,000 ML/1,000 ML BAG IV SCH (12:06)
--- NOTE | 2017-01-12 12:32 | PRG ---
DATE OF SERVICE: 01/12/2017 SUBJECTIVE: The patient says she feels a lot better today. She had not had any chills this morning , nor high fever. Patient said her right ankle is a little sore. Patient's had checked all patient's home medicines and said that her amiodarone had recently been reduced by her phytopathologist , Dr. Contreras from 200 mg 1 twice a day to one a day. The changes will be made. OBJECTIVE: GENERAL APPEARANCE: The patient is lying in bed, looks very comfortable, recognizes me and oriented x3 and is in no distress. VITAL SIGNS: Shows a temperature of 97.7, pulse 60, respirations 16, O2 sat 94%, blood pressure 163 /67, earlier it was 134/60. LUNGS: Clear. There are some early rales at the left base that resolved, deeper inspiration. HEART: Regular rate. EXTREMITIES: No edema. Her right ankle has no swelling, no redness. Her foot is somewhat inverted that may be secondary to the stroke. There is no point tenderness. LABORATORY DATA: Her lab shows an H and H of 10.3 and 31.6, white cell count 9700 with 79% segs, 9% lymphocytes, and platelet count of 294,000. Sodium 138, potassium 3.5. Her BUN is 8, creatinine 0 .62, GFR greater than 90, glucose is 93. AST 168, ALT 156, alkaline phosphatase 66, total bilirubin 0.3. Her urine culture is growing a gram negative dre with colony count greater than 100,000, sens itivity to follow. Her blood culture 2/2 is growing E. coli, sensitivity pending. ASSESSMENT: 1. Urinary tract infection/pyelonephritis. A. Complicated by bacteremia with E. coli, 2/2 blood cultures positive for E. coli, sensitivity rep ort is pending. B. Urine culture growing gram negative rods. Final identification and sensitivity pending. C. Improved, afebrile. 2. Hypertension. 3. Atrial fibrillation. A rate controlled on anticoagulant and amiodarone. 4. Hypertension. 5. Left pontine stroke. A. Presenting with right facial drooping and some mild dysphagia and right hemiparesis on 05/2016. B. Right-sided weakness and facial droop and dysphagia, markedly improved. C. Managed with Eliquis and aspirin 81 mg a day. 6. Diastolic congestive heart failure. A. No evidence for acute congestive heart failure. 7. Type 2 odontoid fracture with nonunion, chronic, asymptomatic. 8. Hyperlipidemia. 9. Chronic low back pain secondary to spondylosis of the lumbar spine. 10. Fibromyalgia. 11. Weakness, gait abnormality. A. Complicated by increased fall wrist. 12. Migraine headaches, controlled. 13. Abnormal liver function studies, probably secondary to the urosepsis. PLAN: We will continue the IV Levaquin. We will reduce patient's IV rate to 75 mL per hour with po tassiums supplementation. We will reduce amiodarone 200 mg from b.i.d. to 1 a day. We will continu e the IV Levaquin as which she seemed to have very good response to at least for a 7-day period. To balbir, we will repeat blood cultures.
[2017-01-12] MEDS: HYDROcodone/Acetaminophen 7.5/325 mg Tablet PO PRN (22:16)
[2017-01-13] MEDS: NS 0.9% w/ 20 MEQ KCL 1,000 ML/1,000 ML BAG IV SCH ×3 (01:36→20:25)
[2017-01-13 05:34] LABS: Anion Gap 10 mmol/L (10-20); BUN (Urea Nitrogen) 5 mg/dL (9.8-20.1); Calc. Creatinine Clearance 60 mL/min (70-130); Calcium 7.9 mg/dL (7.8-10.44); Carbon Dioxide 24 mmol/L (23-31); Chloride 108 mmol/L (98-107); Estimated GFR-MDRD 88; Glucose 90 mg/dL (83-110); Potassium 3.4 mmol/L (3.5-5.1); Sodium 139 mmol/L (136-145)
[2017-01-13 05:49] LABS: Hemoglobin 10.8 g/dL (12.0-16.0); Mean Corpuscular HGB CONC 32.8 g/dL (32.0-36.0); Mean Corpuscular Volume 97.4 fl (81.0-99.0); Mean Platelet Volume 7.3 fL (7.4-10.4); Platelet Count 314 thou/uL (130-400); RBC Distribution Width 12.4 % (11.5-14.5); Red Blood Cell (RBC) Count 3.37 mill/uL (4.20-5.40); White Blood Cell (WBC) Count 7.3 thou/uL (4.8-10.8)
[2017-01-13 06:18] LABS: #Basophils 0.1 thou/uL (0.0-0.2); #Eosinphils 0.4 thou/uL (0.0-0.7); #Lymphocytes 1.3 thou/uL (1.20-3.40); #Monocytes 0.9 thou/uL (0.11-0.59); #Neutrophils 4.7 thou/uL (1.40-6.50); %Eosinophils 5.1 % (0.0-10.0); %Lymphocytes 17.7 % (21.0-51.0); %Monocytes 12.2 % (0.0-10.0); Manual Diff?? YES
[2017-01-13 06:19] LABS: Band 1 % (5-11); Eosinophils 5 % (0-10); Hypochromia MODERATE=16-30 cells (100X) (0-5/hpf); Lymphocytes 12 % (21-51); Monocytes 8 % (0-10); Neutrophil 74 % (42-75); PLT Morphology Comment Appears Adequate
[2017-01-13 06:20] LABS: MDiff Complete? YES
[2017-01-13] MEDS: Pantoprazole 40 MG VIAL IVP SCH (09:02)
[2017-01-13] MEDS: Losartan Potassium 25 MG TAB PO SCH (09:02)
[2017-01-13] MEDS: Folic Acid 1 MG TAB PO SCH (09:03)
[2017-01-13] MEDS: Apixaban 5 MG TAB PO SCH ×2 (09:03→20:24)
[2017-01-13] MEDS: Furosemide 20 MG TAB PO SCH (09:03)
[2017-01-13] MEDS: Aspirin 81 mg Enteric Coated Tablet PO SCH (09:03)
--- NOTE | 2017-01-13 10:18 | PRG ---
DATE OF SERVICE: 01/13/2017 SUBJECTIVE: The patient says she is feeling a lot better. She does not think she has had any fever . She was able to sit up yesterday. Her ankles is still little sore, but right ankle feels a littl e better today. She is not sure the moist heat did much. OBJECTIVE: GENERAL APPEARANCE: The patient looks much better. Very talkative, looks very comfortable, in no d istress. VITAL SIGNS: Her temperature is 99.2, pulse 68, respirations 18, O2 saturation 97%, blood pressure 175/77, earlier 167/73. LUNGS: Clear. HEART: Regular rate. ABDOMEN: Soft and nontender. LABORATORY DATA: Shows an H\T\H of 10.8 and 32.8 with white cell count of 7,300 with 74% segs, 12% lymphocytes, and platelet count of 314,000. Sodium 139, potassium 3.4, BUN 5, creatinine 0.64, and glucose 90. Urine culture grew E. coli, colony count greater than 100,000. Organism sensitive to t he Levaquin. Blood cultures grew E. coli x2. Sensitivity shows organism sensitive to the levofloxa meeta, cephalosporins, penicillins, sulfa drugs, and meropenem. ASSESSMENT AND PLAN: 1. Urinary tract infection/pyelonephritis. A. Complicated by bacteremia with Escherichia coli, two of 2 blood cultures positive for Escher[place] a coli with the organism sensitive to Levaquin. B. Urine culture growing Escherichia coli, colony count greater than 100,000, and organism sensiti ve to Levaquin. C. Continued improvement. 2. Hypertension. 3. Atrial fibrillation. A. Rate controlled on anticoagulation and amiodarone. 4. Left pontine stroke. A. Presenting with right facial drooping, mild dysphagia, and right hemiparesis on 06/15/2016. B. Right-sided weakness, facial drooping, and dysphagia markedly improved. C. Medications with aspirin and Eliquis. 5. Diastolic congestive heart failure. A. No evidence of acute congestive heart failure. 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 7. Hyperlipidemia. 8. Chronic low back pain secondary to spondylosis of the lumbar spine. 9. Fibromyalgia. 10. Weakness and gait abnormality. A. Complicated by increased fall risk. 11. Migraine headaches, controlled. 12. Abnormal liver function studies, probably secondary to urosepsis. PLAN: Overall, the patient has improved. We will continue the present care and IV fluids with pota ssium supplementation. We will continue patient on the IV Levaquin for a total of 7 days and then s witch her to oral Levaquin for at least another 7 days. We will repeat blood cultures x2. We will cutback on her fluids to 50 mL per hour.
[2017-01-13] MEDS ORDERED: Sodium Chloride 0.9% 1,000 ML BAG ONE (13:13)
[2017-01-13] MEDS ORDERED: NS 0.9% w/ 20 MEQ KCL 1,000 ML BAG ONE (13:13)
[2017-01-13] MEDS: HYDROcodone/Acetaminophen 7.5/325 mg Tablet PO PRN (21:38)
[2017-01-14] MEDS: Ondansetron HCl/PF 4 MG/2 ML Vial SLOW IVP PRN (00:10)
[2017-01-14 05:30] LABS: #Eosinphils 0.3 thou/uL (0.0-0.7); #Lymphocytes 1.2 thou/uL (1.20-3.40); #Monocytes 0.9 thou/uL (0.11-0.59); #Neutrophils 4.9 thou/uL (1.40-6.50); %Basophils 0.6 % (0.0-1.0); %Eosinophils 3.8 % (0.0-10.0); %Lymphocytes 16.6 % (21.0-51.0); %Monocytes 11.8 % (0.0-10.0); %Neutrophils 67.3 % (42.0-75.0); Hemoglobin 11.3 g/dL (12.0-16.0); Mean Corpuscular HGB CONC 32.5 g/dL (32.0-36.0); Mean Corpuscular Hemoglobin 31.5 pg (27.0-31.0); Mean Platelet Volume 6.1 fL (7.4-10.4); Platelet Count 344 thou/uL (130-400); RBC Distribution Width 12.5 % (11.5-14.5); White Blood Cell (WBC) Count 7.3 thou/uL (4.8-10.8)
[2017-01-14 05:43] LABS: Anion Gap 13 mmol/L (10-20); BUN (Urea Nitrogen) 5 mg/dL (9.8-20.1); Calc. Creatinine Clearance 57 mL/min (70-130); Calcium 8.1 mg/dL (7.8-10.44); Carbon Dioxide 25 mmol/L (23-31); Chloride 106 mmol/L (98-107); Estimated GFR-MDRD 84; Glucose 100 mg/dL (83-110); Potassium 3.7 mmol/L (3.5-5.1); Sodium 140 mmol/L (136-145)
[2017-01-14 08:10] VITALS: BP 182/78; TEMP 98.8
--- NOTE | 2017-01-14 08:28 | PRG ---
DATE OF SERVICE: 01/14/2017 SUBJECTIVE: The patient said she is feeling better. She has no complaints. OBJECTIVE: The patient is alert and appears comfortable, in no distress. Temp 98, pulse 69, respirations 20, O2 sat 93%, blood pressure 182/78, earlier pressure was 158/74. Lungs are clear. Heart, regular rate. LABORATORY: H\T\H is 11.3 and 34.9, WBC count 7300, 67% segs, 17% lymphocytes, and platelet count of 344,000. Sodium 140, potassium 3.7, BUN 5, creatinine 0.67, glucose 100. Repeat blood cultures drawn 01/13/2017, no growth x2. ASSESSMENT: 1. Urinary tract infection/pyelonephritis. A. Complicated by bacteremia with E. coli, 2 of 2 blood cultures positive for E. coli with organism sensitive to Levaquin. B. Urine culture grew E. coli, colony count greater than 100,000. Organism sensitive to Levaquin. C. Continued improvement and continues to be afebrile. 2. Hypertension. 3. Atrial fibrillation. A. Rate controlled and on anticoagulants and amiodarone. 4. Left pontine stroke. A. Presented with right facial drooping, mild dysphagia and right hemiparesis in 05/2016. B. Right-sided weakness, facial droop, dysphagia, markedly improved, there is minimal weakness on the right side. C. On medication with aspirin and Eliquis. 5. Diastolic congestive heart failure. A. No evidence of acute congestive heart failure. 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 7. Hyperlipidemia. 8. Chronic low back pain secondary to lumbar spondylosis. 9. Fibromyalgia. 10. Weakness, gait abnormality. A. Complicated by increased fall risk. 11. Migraine headaches, controlled. 12. Abnormal liver function studies secondary to the sepsis. PLAN: We will discontinue the IV fluids, continue the IV antibiotics. We will arrange for renal ultrasound, repeat liver studies in the morning.Will move [facility] to [facility], for completion of antibiotics and PT/OT. [facility]
[2017-01-14] MEDS: Apixaban 5 MG TAB PO SCH (08:36)
[2017-01-14] MEDS: Aspirin 81 mg Enteric Coated Tablet PO SCH (08:37)
[2017-01-14] MEDS: Furosemide 20 MG TAB PO SCH (08:38)
[2017-01-14] MEDS: Folic Acid 1 MG TAB PO SCH (08:38)
[2017-01-14] MEDS: Losartan Potassium 25 MG TAB PO SCH (08:39)
[2017-01-14] MEDS: Pantoprazole 40 MG VIAL IVP SCH (08:39)
[2017-01-14 09:52] LABS: ALT (SGPT) 134 U/L (8-55); AST (SGOT) 67 U/L (5-34); Alkaline Phosphatase 70 U/L (40-150); Anion Gap 10 mmol/L (10-20); BUN (Urea Nitrogen) 4 mg/dL (9.8-20.1); Bilirubin, Total 0.3 mg/dL (0.2-1.2); Calc. Creatinine Clearance 59 mL/min (70-130); Carbon Dioxide 26 mmol/L (23-31); Chloride 104 mmol/L (98-107); Estimated GFR-MDRD 87; Globulin 2.8 g/dL (2.4-3.5); Glucose 106 mg/dL (83-110); Potassium 3.3 mmol/L (3.5-5.1); Protein, Total 5.8 g/dL (6.0-8.3); Sodium 137 mmol/L (136-145)
--- NOTE | 2017-01-14 16:31 | ULT ---
RENAL SONOGRAM 01/14/17 HISTORY: UTI/pyelonephrosis. FINDINGS: The kidneys demonstrate a normal sonographic appearance bilaterally without evidence of a renal mass , renal calculus or hydronephrosis. Right kidney measures 9.6 cm x 4.2 cm with the left kidney measu ring 10.9 cm x 4.2 cm. No perinephric fluid collection is seen bilaterally. The urinary bladder demonstrates a normal sonographic appearance with prevoid urinary bladder volume of 318.4 mL and postvoid urinary bladder volume of 67.8 mL. IMPRESSION: 1. Normal appearing bilateral kidneys without evidence of hydronephrosis. 2. Postvoid residual of 67.8 mL. POS: [facility]
== END 2017-01-14 09:22 | DRG 872 ==
LOC: MADERS 23:07 → MADMS 01-11 02:06
PROVIDERS: ADMIT Family Medicine; ATTEND Family Medicine
DX: A41.51 Sepsis due to Escherichia coli [E. coli] (principal); N39.0 Urinary tract infection, site not specified; I48.2 Chronic atrial fibrillation; I11.0 Hypertensive heart disease with heart failure; I50.32 Chronic diastolic (congestive) heart failure; I69.951 Hemiplegia and hemiparesis following unspecified cerebrovascular disease affecting right dominant side; E78.5 Hyperlipidemia, unspecified; G43.909 Migraine, unspecified, not intractable, without status migrainosus; N12 Tubulo-interstitial nephritis, not specified as acute or chronic; S12.110K Anterior displaced Type II dens fracture, subsequent encounter for fracture with nonunion; K21.9 Gastro-esophageal reflux disease without esophagitis; B96.20 Unspecified Escherichia coli [E. coli] as the cause of diseases classified elsewhere; Z79.01 Long term (current) use of anticoagulants; M79.7 Fibromyalgia; M47.9 Spondylosis, unspecified; R26.9 Unspecified abnormalities of gait and mobility; Z91.81 History of falling; R65.20 Severe sepsis without septic shock; W19.XXXD Unspecified fall, subsequent encounter; Z88.2 Allergy status to sulfonamides; Z88.0 Allergy status to penicillin; Z88.8 Allergy status to other drugs, medicaments and biological substances
CPT/HCPCS: 36415; 51701; 71010; 76770; 80048; 80053; 81001; 82550; 82553; 83880; 84484; 85007; 85025; 85027; 85610; 85730; 87040; 87077; 87081; 87086; 87149; 87186; 87430; 93005; 96365; 96372; A4216; A4353; C9113; J1650; J1956; J2405; J7050

== ENCOUNTER 2017-01-14 09:22 | Inpatient (IN) | payer MEDICARE ==
[2017-01-14] MEDS ORDERED: Gabapentin 300 MG CAP PO PRN (10:30)
[2017-01-14] MEDS: Ondansetron ODT 4 MG TAB SL PRN (12:29)
[2017-01-14] MEDS: Apixaban 5 MG TAB PO SCH (20:49)
[2017-01-14] MEDS: HYDROcodone/Acetaminophen 7.5/325 mg Tablet PO PRN (20:52)
[2017-01-15 05:11] LABS: #Basophils 0.1 thou/uL (0.0-0.2); #Eosinphils 0.3 thou/uL (0.0-0.7); #Lymphocytes 1.3 thou/uL (1.20-3.40); #Monocytes 1.1 thou/uL (0.11-0.59); #Neutrophils 7.5 thou/uL (1.40-6.50); %Basophils 0.8 % (0.0-1.0); %Lymphocytes 12.7 % (21.0-51.0); %Monocytes 10.6 % (0.0-10.0); %Neutrophils 72.9 % (42.0-75.0); Mean Corpuscular HGB CONC 32.9 g/dL (32.0-36.0); Mean Corpuscular Hemoglobin 31.5 pg (27.0-31.0); Mean Corpuscular Volume 95.8 fl (81.0-99.0); Mean Platelet Volume 6.7 fL (7.4-10.4); Platelet Count 362 thou/uL (130-400); RBC Distribution Width 12.5 % (11.5-14.5); Red Blood Cell (RBC) Count 3.81 mill/uL (4.20-5.40); White Blood Cell (WBC) Count 10.3 thou/uL (4.8-10.8)
[2017-01-15 05:32] LABS: ALT (SGPT) 125 U/L (8-55); AST (SGOT) 64 U/L (5-34); Alkaline Phosphatase 79 U/L (40-150); Anion Gap 15 mmol/L (10-20); BUN (Urea Nitrogen) 6 mg/dL (9.8-20.1); Bilirubin, Total 0.4 mg/dL (0.2-1.2); Calc. Creatinine Clearance 54 mL/min (70-130); Calcium 8.6 mg/dL (7.8-10.44); Carbon Dioxide 26 mmol/L (23-31); Chloride 100 mmol/L (98-107); Estimated GFR-MDRD 78; Glucose 101 mg/dL (83-110); Potassium 3.6 mmol/L (3.5-5.1); Sodium 137 mmol/L (136-145)
--- NOTE | 2017-01-15 08:03 | PRG ---
DATE OF SERVICE: 01/15/2017 SUBJECTIVE: The patient said she is feeling better. Yesterday, the therapist walked her some. OBJECTIVE: GENERAL APPEARANCE: The patient is alert, appears in no acute distress. VITAL SIGNS: Shows temperature 97.2, pulse 66, respirations 18, O2 sat 92% on room air, and blood p ressure 145/67. LUNGS: Clear. HEART: Regular rate. EXTREMITIES: No edema. LABORATORY DATA: Sodium 137, potassium 3.6, BUN 6, creatinine 0.71, glucose 101, alkaline phosphata se 79, total bilirubin 0.4, AST 64, ALT 125 down from a high of 156. The AST is down from a high of 168. IMAGING: Renal ultrasound performed yesterday shows normal appearing bilateral kidneys without evid ence of hydronephrosis. The patient was post-void residual of approximately 67 mL. ASSESSMENT: 1. Urinary tract infection/pyelonephritis. A. Complicated by bacteremia with Escherichia coli, two of 2 blood cultures positive for Escherichi a coli if the organisms sensitive to Levaquin. Repeat blood cultures drawn on 01/13/2017 no growth x2. B. Urine culture grew Escherichia coli, colony count greater than 100,000. Organism sensitive to L evaquin. C. Continued improvement, remains afebrile. 2. Hypertension. 3. Atrial fibrillation. Rate controlled on anticoagulants and amiodarone. 4. History of left pontine stroke. A. Presenting with right facial drooping, mild dysphagia, and right hemiparesis in 05/2016. B. Marked improvement with only minimal right-sided weakness remaining. C. On aspirin and Eliquis. 5. Diastolic dysfunction. A. No evidence of acute congestive heart failure. 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 7. Hyperlipidemia. 8. Chronic low back pain secondary to lumbar spondylosis. 9. Fibromyalgia. 10. Weakness, gait abnormality. A. Complicated by increased fall risk. 11. Migraine headaches, controlled. 12. Abnormal liver function study secondary to recent bacteremia, improved. PLAN: Continue IV antibiotics for a full 7 days and then we will switch to oral antibiotics at as t for another week. Physical therapy is beginning to work with patient. We will continue to follow liver function studies that are improving.
[2017-01-15] MEDS: Apixaban 5 MG TAB PO SCH ×2 (08:52→20:23)
[2017-01-15] MEDS: Furosemide 20 MG TAB PO SCH (08:53)
[2017-01-15] MEDS: Folic Acid 1 MG TAB PO SCH (08:53)
[2017-01-15] MEDS: Losartan Potassium 25 MG TAB PO SCH (08:54)
[2017-01-15] MEDS: Aspirin 81 mg Enteric Coated Tablet PO SCH (08:54)
[2017-01-15] MEDS: HYDROcodone/Acetaminophen 7.5/325 mg Tablet PO PRN (22:24)
[2017-01-16] MEDS: Ondansetron ODT 4 MG TAB SL PRN (06:06)
[2017-01-16] MEDS: HYDROcodone/Acetaminophen 7.5/325 mg Tablet PO PRN ×2 (06:31→22:21)
--- NOTE | 2017-01-16 08:34 | PRG ---
DATE OF SERVICE: 01/16/2017 SUBJECTIVE: The patient said she is feeling better. She is walking and working on an exercise bike with therapy. OBJECTIVE: The patient lying in bed, alert, and appears comfortable in no distress. Temp 97.7, pul se 69, respirations 18, O2 sat 92% on room air, blood pressure 118/60. Lungs are clear. Heart, reg ular rate. Extremities, no edema. ASSESSMENT: 1. Urinary tract infection/pyelonephritis. A. Complicated by bacteremia with E. coli, 2 of 2 blood cultures positive for E. coli sensitive to L evaquin. Repeat blood cultures drawn on 01/13/2017, no growth x2. B. Urine culture grew E. coli, colony count greater than 100,000. Organism sensitive to Levaquin. C. Continued improvement, remains afebrile. 2. Hypertension, controlled. 3. Atrial fibrillation, rate controlled and on anticoagulants and amiodarone. 4. History of left pontine stroke. A. Presenting with right facial droop, mild dysphagia and right hemiparesis in 05/2016. B. Marked improvement with only minimal right-sided weakness remaining. C. On aspirin and Eliquis. 5. Diastolic dysfunction. A. No evidence of congestive heart failure. 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 7. Hyperlipidemia. 8. Chronic low back pain secondary to lumbar spondylosis. 9. Fibromyalgia. 10. Weakness and gait abnormality. A. Complicated by increased fall risk. B. Improving. 11. Migraine headaches, controlled. 12. Abnormal liver function study secondary to recent bacteremia, improving. PLAN: Continue present care. Continue IV antibiotics. The patient will receive her 7th day tomorr ow and then we will switch to oral medication.
[2017-01-16] MEDS: Losartan Potassium 25 MG TAB PO SCH (08:57)
[2017-01-16] MEDS: Folic Acid 1 MG TAB PO SCH (08:57)
[2017-01-16] MEDS: Apixaban 5 MG TAB PO SCH ×2 (08:57→20:54)
[2017-01-16] MEDS: Aspirin 81 mg Enteric Coated Tablet PO SCH (08:57)
[2017-01-16] MEDS: Furosemide 20 MG TAB PO SCH (08:58)
[2017-01-16 09:48] LABS: ALT (SGPT) 136 U/L (8-55); AST (SGOT) 87 U/L (5-34); Albumin 3.1 g/dL (3.4-4.8); Alkaline Phosphatase 78 U/L (40-150); Anion Gap 12 mmol/L (10-20); BUN (Urea Nitrogen) 8 mg/dL (9.8-20.1); Bilirubin, Total 0.4 mg/dL (0.2-1.2); Calc. Creatinine Clearance 56 mL/min (70-130); Calcium 8.5 mg/dL (7.8-10.44); Carbon Dioxide 26 mmol/L (23-31); Chloride 100 mmol/L (98-107); Estimated GFR-MDRD 82; Globulin 2.9 g/dL (2.4-3.5); Glucose 114 mg/dL (83-110); Potassium 3.1 mmol/L (3.5-5.1); Sodium 135 mmol/L (136-145)
[2017-01-17 06:25] LABS: #Basophils 0.1 thou/uL (0.0-0.2); #Eosinphils 0.8 thou/uL (0.0-0.7); #Lymphocytes 1.6 thou/uL (1.20-3.40); #Monocytes 1.1 thou/uL (0.11-0.59); #Neutrophils 5.2 thou/uL (1.40-6.50); %Basophils 0.9 % (0.0-1.0); %Eosinophils 9.5 % (0.0-10.0); %Lymphocytes 18.6 % (21.0-51.0); %Monocytes 12.4 % (0.0-10.0); %Neutrophils 58.7 % (42.0-75.0); Hemoglobin 12.1 g/dL (12.0-16.0); Mean Corpuscular HGB CONC 32.9 g/dL (32.0-36.0); Mean Corpuscular Hemoglobin 31.8 pg (27.0-31.0); Mean Corpuscular Volume 96.8 fl (81.0-99.0); Mean Platelet Volume 7.1 fL (7.4-10.4); Platelet Count 379 thou/uL (130-400); RBC Distribution Width 12.4 % (11.5-14.5); Red Blood Cell (RBC) Count 3.81 mill/uL (4.20-5.40); White Blood Cell (WBC) Count 8.8 thou/uL (4.8-10.8)
--- NOTE | 2017-01-17 08:42 | PRG ---
DATE OF SERVICE: 01/17/2017 SUBJECTIVE: The patient said she became nauseated after they started the infusion of the Levaquin, which she has now completed. The patient said she seems to get this each time that is infused. Glenroy nunez she completed her 7th day of Levaquin IV. The patient said yesterday she just felt too weak to r eally participate with PT. OBJECTIVE: The patient is lying in bed. She has a cold rag on her head and an emesis bag, but she is not retching or vomiting. Her vital signs show a temperature of 98.2, pulse 64, respirations 16, O2 sat 95% on room air. Her blood pressure 134/63. Lungs are clear. Heart, regular rate. Laboratory; H\T\H 12.1 and 36.9. White cell count 8800 with 59% segs, 19% lymphocytes, and platelet count of 379,000. Sodium 135, potassium 3.1, BUN 8, creatinine 0.68, glucose 114. AST 87, ALT 136 . Albumin 3.1. ASSESSMENT: 1. Urinary tract infection/pyelonephritis. A. Complicated by bacteremia with Escherichia coli. Two of 2 blood cultures positive for E. coli se nsitive to the Levaquin. Repeat blood cultures drawn on 01/13/2017 no growth x2. B. The urine culture grew E. coli, colony count greater than 100,000. Organism sensitive to Levaqu in. C. Continued improvement, remains afebrile. D. Has completed a 7-day course of IV Levaquin as of 01/17/2017. 2. Hypertension. 3. Atrial fibrillation. A. Rate controlled on anticoagulation and amiodarone. 4. History of left pontine stroke. A. Presenting with right facial droop, mild dysphagia and right hemiparesis 05/2016, marked improvem ent with only minimal right-sided weakness remaining. B. On aspirin and Eliquis. 5. Diastolic dysfunction. A. No evidence of acute congestive heart failure. 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 7. Chronic low back pain secondary to lumbar spondylosis. 8. Fibromyalgia. 9. Weakness, gait abnormality. A. Complicated by increased fall risk. B. Gradually improving. 10. Migraine headaches, controlled. 11. Abnormal liver function studies secondary to recent bacteremia, stable. PLAN: The patient has completed a 7-day course of the IV Levaquin. Will stop the IV Levaquin and p lace her on a minimum of a 7-day course of oral Levaquin. Continue physical therapy. We will phuong mak to monitor her liver function studies. The patient is hypokalemic. We will place her on potass ium supplementation.
[2017-01-17] MEDS: Apixaban 5 MG TAB PO SCH ×2 (08:56→21:35)
[2017-01-17] MEDS: Folic Acid 1 MG TAB PO SCH (08:56)
[2017-01-17] MEDS: Aspirin 81 mg Enteric Coated Tablet PO SCH (08:56)
[2017-01-17] MEDS: Losartan Potassium 25 MG TAB PO SCH (08:56)
[2017-01-17] MEDS: Furosemide 20 MG TAB PO SCH (08:56)
[2017-01-17] MEDS: Ondansetron ODT 4 MG TAB SL PRN (13:39)
[2017-01-18 07:19] LABS: Anion Gap 12 mmol/L (10-20); BUN (Urea Nitrogen) 10 mg/dL (9.8-20.1); Calc. Creatinine Clearance 55 mL/min (70-130); Calcium 8.3 mg/dL (7.8-10.44); Carbon Dioxide 26 mmol/L (23-31); Chloride 101 mmol/L (98-107); Estimated GFR-MDRD 81; Glucose 97 mg/dL (83-110); Potassium 3.2 mmol/L (3.5-5.1); Sodium 136 mmol/L (136-145)
[2017-01-18] MEDS: Potassium Chloride 20 MEQ TAB PO SCH (08:37)
[2017-01-18] MEDS: Folic Acid 1 MG TAB PO SCH (08:38)
[2017-01-18] MEDS: Furosemide 20 MG TAB PO SCH (08:38)
[2017-01-18] MEDS: Aspirin 81 mg Enteric Coated Tablet PO SCH (08:38)
[2017-01-18] MEDS: Losartan Potassium 25 MG TAB PO SCH (08:38)
[2017-01-18] MEDS: Apixaban 5 MG TAB PO SCH ×2 (08:38→21:00)
[2017-01-18] MEDS ORDERED: Bisacodyl 10 MG SUPP PR PRN (10:20)
[2017-01-18] MEDS: Ondansetron ODT 4 MG TAB SL PRN (10:23)
[2017-01-18] MEDS ORDERED: Polyethylene Glycol 3350 17 GM Packet PO SCH (10:30)
--- NOTE | 2017-01-18 11:47 | PRG ---
DATE OF SERVICE: 01/18/2017 SUBJECTIVE: The patient said she is feeling better. She is a little nauseated today, but not like yesterday. She has been up and with the help of Occupational Therapy showered. She was a little ou t of balance and required someone to assist her or she would have fallen. OBJECTIVE: The patient is sitting up in a bedside chair. She is alert and appears much better, estefania ears in no distress. Temp 98.2, pulse 69, respirations 18, O2 sat 95% on room air, blood pressure 1 34/61. Her lungs are clear. Heart, regular rate. Extremities; no edema. Lab shows a sodium 136, potassium of 3.2, BUN 10, creatinine 0.69, glucose 97. ASSESSMENT: 1. Urinary tract infection/pyelonephritis. A. Complicated by bacteremia with Escherichia coli. Two of 2 blood cultures positive for E. coli se nsitive to the Levaquin. Repeat blood cultures drawn on 01/13/2017 showed no growth x2. B. Urine culture grew E. coli, colony count greater than 100,000. Organism sensitive to the Levaqu in. C. Completed 7-day course of IV Levaquin as of 01/17/2017 and now on oral Levaquin. D. Continued improvement and remains afebrile. 2. Hypertension. 3. Atrial fibrillation. A. Rate controlled on anticoagulant and amiodarone. 4. History of left pontine stroke. A. Presenting with right facial droop, mild dysphagia and right hemiparesis 05/2016. Marked improve ment with only minimal right-sided weakness remaining. B. On aspirin and Eliquis. 5. Diastolic dysfunction. A. No evidence of acute congestive heart failure. 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 7. Chronic low back pain secondary to lumbar spondylosis. 8. Fibromyalgia. 9. Weakness and gait abnormality. A. Complicated by increased fall risk. B. Slowly improving, but still a fall risk. 10. Migraine headaches, controlled. 11. Abnormal liver function studies secondary to recent bacteremia. PLAN: Continue present care. Continue physical therapy. The hypokalemia has improved.
[2017-01-18 12:17] LABS: ALT (SGPT) 196 U/L (8-55); AST (SGOT) 157 U/L (5-34); Albumin 3.2 g/dL (3.4-4.8); Alkaline Phosphatase 91 U/L (40-150); Anion Gap 12 mmol/L (10-20); BUN (Urea Nitrogen) 11 mg/dL (9.8-20.1); Bilirubin, Total 0.4 mg/dL (0.2-1.2); Calc. Creatinine Clearance 49 mL/min (70-130); Calcium 8.4 mg/dL (7.8-10.44); Carbon Dioxide 27 mmol/L (23-31); Chloride 99 mmol/L (98-107); Estimated GFR-MDRD 70; Globulin 3.1 g/dL (2.4-3.5); Glucose 103 mg/dL (83-110); Potassium 3.9 mmol/L (3.5-5.1); Protein, Total 6.3 g/dL (6.0-8.3); Sodium 134 mmol/L (136-145)
[2017-01-19 06:26] LABS: #Basophils 0.1 thou/uL (0.0-0.2); #Eosinphils 0.8 thou/uL (0.0-0.7); #Lymphocytes 1.3 thou/uL (1.20-3.40); #Neutrophils 5.8 thou/uL (1.40-6.50); %Basophils 0.8 % (0.0-1.0); %Eosinophils 8.8 % (0.0-10.0); %Lymphocytes 14.7 % (21.0-51.0); %Monocytes 10.8 % (0.0-10.0); %Neutrophils 64.8 % (42.0-75.0); Hemoglobin 11.9 g/dL (12.0-16.0); Mean Corpuscular HGB CONC 32.4 g/dL (32.0-36.0); Mean Corpuscular Hemoglobin 31.2 pg (27.0-31.0); Mean Corpuscular Volume 96.5 fl (81.0-99.0); Mean Platelet Volume 6.7 fL (7.4-10.4); Platelet Count 387 thou/uL (130-400); RBC Distribution Width 12.5 % (11.5-14.5); Red Blood Cell (RBC) Count 3.81 mill/uL (4.20-5.40)
[2017-01-19] MEDS: Potassium Chloride 20 MEQ TAB PO SCH (08:20)
[2017-01-19] MEDS: Apixaban 5 MG TAB PO SCH ×2 (08:21→21:02)
[2017-01-19] MEDS: Losartan Potassium 25 MG TAB PO SCH (08:22)
[2017-01-19] MEDS: Folic Acid 1 MG TAB PO SCH (08:22)
[2017-01-19] MEDS: Aspirin 81 mg Enteric Coated Tablet PO SCH (08:22)
[2017-01-19] MEDS: Furosemide 20 MG TAB PO SCH (08:22)
[2017-01-19] MEDS ORDERED: Polyethylene Glycol 3350 17 GM Packet PO SCH (09:00)
[2017-01-19 13:27] LABS: ALT (SGPT) 212 U/L (8-55); AST (SGOT) 167 U/L (5-34); Albumin 2.9 g/dL (3.4-4.8); Alkaline Phosphatase 89 U/L (40-150); Anion Gap 11 mmol/L (10-20); BUN (Urea Nitrogen) 11 mg/dL (9.8-20.1); Bilirubin, Total 0.4 mg/dL (0.2-1.2); Calc. Creatinine Clearance 52 mL/min (70-130); Calcium 8.2 mg/dL (7.8-10.44); Carbon Dioxide 25 mmol/L (23-31); Chloride 103 mmol/L (98-107); Estimated GFR-MDRD 75; Globulin 2.9 g/dL (2.4-3.5); Glucose 121 mg/dL (83-110); Protein, Total 5.8 g/dL (6.0-8.3); Sodium 135 mmol/L (136-145)
--- NOTE | 2017-01-19 13:30 | PRG ---
DATE OF SERVICE: 01/19/2017 SUBJECTIVE: The patient says she is doing a lot better today. She said she has not had a bowel mov ement for several days. She is on her MiraLax once a day, but it had not helped. Nurse had offered her Dulcolax suppository, but she did not really want to use that. OBJECTIVE: GENERAL: The patient is sitting up in a chair. She is alert, very conversant and appears in no dis tress. VITAL SIGNS: Show a temperature of 98.6, pulse 63, respirations 16, O2 sat 95% on room air, blood p ressure 105/51. Her weight is 129. LUNGS: Clear. HEART: Regular rate. EXTREMITIES: No edema. LABORATORY DATA: Her labs shows an hemoglobin and hematocrit of 11.9 and 36.8, white cell count 900 0 with 65% segs, 15% lymphocytes, and platelet count of 387,000. Her sodium is 134, potassium is 3. 9, BUN is 11, creatinine 0.7, GFR 70, and glucose 103. Her AST has gone up to 157, ALT to 196. Tot al bilirubin is 0.4 and her alkaline phosphatase is 91. ASSESSMENT: 1. Urinary tract infection/pyelonephritis. A. Complicated by bacteremia with Escherichia coli. Two of 2 blood cultures positive for Escherich ia coli, sensitive to Levaquin. Repeat blood cultures drawn on 01/13/2017 showed no growth x2. B. Urine culture grew Escherichia coli, colony count greater than 100,000. Organism sensitive to t he Levaquin. C. Completed 7-day course of IV Levaquin on 01/17/2017 and presently on oral Levaquin. D. Continued improvement and remains afebrile. 2. Hypertension. 3. Atrial fibrillation. A. Rate controlled on anticoagulant and amiodarone. 4. History of left pontine stroke. A. Presenting with a right facial droop, mild dysphagia and right hemiparesis in 05/2016. Marked i mprovement with only minimal right-sided weakness remaining. B. On aspirin and Eliquis. 5. Diastolic dysfunction. A. No evidence of acute congestive heart failure. 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 7. Chronic low back pain secondary to lumbar spondylosis. 8. Fibromyalgia. 9. Weakness, gait abnormality. A. Complicated by frequent falls. B. Improving. 10. Migraine headaches, controlled. 11. Abnormal liver function studies. A. Mild increase. B. Etiology suspect from hepatocellular injury from the initial sepsis, we will follow this. PLAN: Continue present care. Continue PT. We will continue to follow the patient's liver panel. It is possible that the amiodarone may have some effect on this mild elevation. We will recheck her liver studies and hepatitis panel. We will increase her MiraLax 17 grams in 8 ounces of water to t wice a day to help with constipation and she has a Dulcolax suppository if needed.
[2017-01-20] MEDS: Polyethylene Glycol 3350 17 GM Packet PO SCH ×3 (01:05→19:59)
[2017-01-20] MEDS: HYDROcodone/Acetaminophen 7.5/325 mg Tablet PO PRN (01:06)
[2017-01-20 06:29] LABS: INR-International Normal Ratio 1.5
[2017-01-20 06:51] LABS: #Basophils 0.1 thou/uL (0.0-0.2); #Eosinphils 0.7 thou/uL (0.0-0.7); #Lymphocytes 1.4 thou/uL (1.20-3.40); #Monocytes 0.7 thou/uL (0.11-0.59); #Neutrophils 4.4 thou/uL (1.40-6.50); %Basophils 1.1 % (0.0-1.0); %Eosinophils 9.4 % (0.0-10.0); %Lymphocytes 19.5 % (21.0-51.0); %Monocytes 9.9 % (0.0-10.0); Hemoglobin 11.5 g/dL (12.0-16.0); Mean Corpuscular Hemoglobin 31.7 pg (27.0-31.0); Mean Corpuscular Volume 96.1 fl (81.0-99.0); Mean Platelet Volume 6.5 fL (7.4-10.4); Platelet Count 396 thou/uL (130-400); RBC Distribution Width 12.5 % (11.5-14.5); Red Blood Cell (RBC) Count 3.61 mill/uL (4.20-5.40); White Blood Cell (WBC) Count 7.3 thou/uL (4.8-10.8)
[2017-01-20] MEDS: Potassium Chloride 20 MEQ TAB PO SCH (09:26)
[2017-01-20] MEDS: Losartan Potassium 25 MG TAB PO SCH (09:27)
[2017-01-20] MEDS: Furosemide 20 MG TAB PO SCH (09:27)
[2017-01-20] MEDS: Apixaban 5 MG TAB PO SCH ×2 (09:28→19:58)
[2017-01-20] MEDS: Folic Acid 1 MG TAB PO SCH (09:28)
[2017-01-20] MEDS: Aspirin 81 mg Enteric Coated Tablet PO SCH (09:29)
[2017-01-20] MEDS: HYDROcodone/Acetaminophen 5/325 mg Tablet PO PRN (19:59)
[2017-01-20] MEDS: Ondansetron ODT 4 MG TAB SL PRN (21:44)
[2017-01-21] MEDS: Losartan Potassium 25 MG TAB PO SCH (08:48)
[2017-01-21] MEDS: Aspirin 81 mg Enteric Coated Tablet PO SCH (08:49)
[2017-01-21] MEDS: Apixaban 5 MG TAB PO SCH ×2 (08:49→20:25)
[2017-01-21] MEDS: Potassium Chloride 20 MEQ TAB PO SCH (08:50)
[2017-01-21] MEDS: Polyethylene Glycol 3350 17 GM Packet PO SCH (08:50)
[2017-01-21] MEDS: Furosemide 20 MG TAB PO SCH (08:50)
[2017-01-21] MEDS: Folic Acid 1 MG TAB PO SCH (08:50)
[2017-01-21] MEDS: Ondansetron ODT 4 MG TAB SL PRN (13:24)
--- NOTE | 2017-01-21 13:33 | PRG ---
DATE OF SERVICE: 01/21/2017 SUBJECTIVE: The patient said she is doing better. Her bowels finally moved a large amount yesterda y and she refused her MiraLax. She thinks that 1 a day will be adequate now. She did start having a lot of headaches last night that the Tylenol would not relieve. She was given her hydrocodone 09/26 24 and said she want to sleep and this morning she woke up feeling fine. OBJECTIVE: GENERAL: The patient is sitting in a chair. She is alert and appears in no acute distress. She ap pears comfortable. She is a little tearful, worried about a son who has been affected by the flood from the [place] in [place]. VITAL SIGNS: The patient's temperature is 97.6, pulse 63, respirations 18, O2 saturation 97% and bl ood pressure 122/58. LUNGS: Clear. HEART: Regular rate with blowing systolic murmur heard best over the base of the heart. ASSESSMENT: 1. Urinary tract infection/pyelonephritis. A. Complicated by bacteremia with Escherichia coli. Two of two blood cultures were positive for Es cherichia coli that are sensitive to the Levaquin. Repeat blood cultures on 01/13/2017, showed no g rowth x2. B. The urine culture grew Escherichia coli, colony count greater than 100,000. Organism sensitive to the Levaquin. C. Completed a 7-day course of IV Levaquin on 01/17/2017 and continues on oral Levaquin. D. Continued improvement and remains afebrile. 2. Hypertension, controlled. 3. Atrial fibrillation. A. Rate controlled on anticoagulants and amiodarone. 4. History of left pontine stroke. A. Presenting with right facial droop, mild dysphagia and right hemiparesis in 05/2016, marked impr ovement with only minimal right-sided weakness remaining. B. On aspirin and Eliquis. 5. Diastolic dysfunction. A. No evidence of acute congestive heart failure. 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 7. Chronic low back pain secondary to lumbar spondylosis. 8. Fibromyalgia. 9. Weakness and gait abnormality. A. Complicated by frequent falls. B. Improved. 10. Migraine headaches, controlled. 11. Abnormal liver function studies. 12. Mild increase in the liver enzymes, suspect related to the bacteremia creating a hepatocellular injury. PLAN: Continue present care. We will continue to follow the liver function studies. We will reduc e her MiraLax to one time a day.
[2017-01-22] MEDS: Potassium Chloride 20 MEQ TAB PO SCH (08:14)
[2017-01-22] MEDS: Apixaban 5 MG TAB PO SCH ×2 (08:18→20:36)
[2017-01-22] MEDS: Aspirin 81 mg Enteric Coated Tablet PO SCH (08:18)
[2017-01-22] MEDS: Furosemide 20 MG TAB PO SCH (08:19)
[2017-01-22] MEDS: Folic Acid 1 MG TAB PO SCH (08:19)
[2017-01-22] MEDS: Losartan Potassium 25 MG TAB PO SCH (08:19)
[2017-01-22] MEDS: Polyethylene Glycol 3350 17 GM Packet PO SCH (08:19)
[2017-01-22] MEDS: Ondansetron ODT 4 MG TAB SL PRN (10:04)
[2017-01-22] MEDS: HYDROcodone/Acetaminophen 5/325 mg Tablet PO PRN (20:40)
[2017-01-23] MEDS: Potassium Chloride 20 MEQ TAB PO SCH (08:41)
[2017-01-23] MEDS: Furosemide 20 MG TAB PO SCH (08:42)
[2017-01-23] MEDS: Folic Acid 1 MG TAB PO SCH (08:42)
[2017-01-23] MEDS: Apixaban 5 MG TAB PO SCH ×2 (08:42→20:22)
[2017-01-23] MEDS: Aspirin 81 mg Enteric Coated Tablet PO SCH (08:42)
[2017-01-23] MEDS: Polyethylene Glycol 3350 17 GM Packet PO SCH (08:43)
[2017-01-23] MEDS: Losartan Potassium 25 MG TAB PO SCH (08:43)
--- NOTE | 2017-01-23 09:07 | PRG ---
DATE OF SERVICE: 01/23/2017 SUBJECTIVE: The patient said she slept better last night. Today she is feeling better. Yesterday she celebrated her 87th birthday. OBJECTIVE: The patient lying in bed. She is awake, in good spirits and appears in no distress. He r temperature is 97.3, pulse 68, respirations 18, O2 sat 94% on room air, blood pressure 132/61. Cynthia ngs are clear. Heart, regular rate. Extremities; no edema. ASSESSMENT: 1. Urinary tract infection/pyelonephritis. A. Complicated by bacteremia with Escherichia coli. Two of 2 blood cultures were positive for E. c marisela that are sensitive to Levaquin. B. Repeat blood cultures on 01/13/2017 showed no growth x2. BUN culture grew E. coli with a colony count greater than 100,000. Organism sensitive to the Levaquin. C. Completed 7-day course of IV Levaquin on 01/17/2017 and started on oral Levaquin which she remai ns on. D. Continued improvement, remains afebrile. 2. Hypertension, controlled. 3. Atrial fibrillation. A. Rate controlled. B. On anticoagulant and amiodarone. 4. History of pontine stroke. A. Presenting with right facial droop, mild dysphagia and right hemiparesis 05/2016. B. Marked improvement with only minimal right-sided weakness. C. On aspirin and Eliquis. 5. Diastolic dysfunction. A. No evidence of acute congestive failure. 6. Type 2 odontoid fracture with nonunion, chronic and stable and asymptomatic. 7. Chronic low back pain secondary to lumbar spondylosis. 8. Fibromyalgia. 9. Weakness and gait abnormality. A. Complicated by frequent falls. B. Continued improvement. 10. Migraine headaches, controlled. 11. Abnormal liver function studies. A. The hepatocellular injury, suspect is related to the bacteremia. PLAN: Will continue present care. Continue physical therapy. We will continue to monitor her live r studies, continue the oral Levaquin.
[2017-01-23 09:55] LABS: ALT (SGPT) 198 U/L (8-55); AST (SGOT) 118 U/L (5-34); Albumin 3.1 g/dL (3.4-4.8); Alkaline Phosphatase 107 U/L (40-150); Anion Gap 13 mmol/L (10-20); BUN (Urea Nitrogen) 14 mg/dL (9.8-20.1); Bilirubin, Total 0.3 mg/dL (0.2-1.2); Calc. Creatinine Clearance 45 mL/min (70-130); Calcium 8.4 mg/dL (7.8-10.44); Carbon Dioxide 25 mmol/L (23-31); Chloride 104 mmol/L (98-107); Estimated GFR-MDRD 64; Glucose 117 mg/dL (83-110); Potassium 3.8 mmol/L (3.5-5.1); Protein, Total 6.1 g/dL (6.0-8.3); Sodium 138 mmol/L (136-145)
[2017-01-23] MEDS: HYDROcodone/Acetaminophen 5/325 mg Tablet PO PRN (19:55)
[2017-01-24 05:26] LABS: #Basophils 0.1 thou/uL (0.0-0.2); #Eosinphils 0.7 thou/uL (0.0-0.7); Hemoglobin 12.7 g/dL (12.0-16.0); Red Blood Cell (RBC) Count 3.94 mill/uL (4.20-5.40); White Blood Cell (WBC) Count 8.1 thou/uL (4.8-10.8)
[2017-01-24 05:33] LABS: INR-International Normal Ratio 1.3; Prothrombin Time 16.3 SEC (12.0-14.7)
[2017-01-24 05:40] LABS: #Lymphocytes 1.6 thou/uL (1.20-3.40); #Monocytes 0.7 thou/uL (0.11-0.59); %Eosinophils 8.7 % (0.0-10.0); %Lymphocytes 19.4 % (21.0-51.0); %Monocytes 8.5 % (0.0-10.0); %Neutrophils 62.5 % (42.0-75.0); Mean Corpuscular HGB CONC 33.1 g/dL (32.0-36.0); Mean Corpuscular Hemoglobin 32.1 pg (27.0-31.0); Mean Corpuscular Volume 96.9 fl (81.0-99.0); Mean Platelet Volume 6.6 fL (7.4-10.4); Platelet Count 392 thou/uL (130-400); RBC Distribution Width 12.6 % (11.5-14.5)
[2017-01-24] MEDS: Ondansetron ODT 4 MG TAB SL PRN ×2 (07:14→15:17)
[2017-01-24] MEDS: Apixaban 5 MG TAB PO SCH ×2 (08:29→20:22)
[2017-01-24] MEDS: Potassium Chloride 20 MEQ TAB PO SCH (08:29)
[2017-01-24] MEDS: Losartan Potassium 25 MG TAB PO SCH (08:30)
[2017-01-24] MEDS: Furosemide 20 MG TAB PO SCH (08:30)
[2017-01-24] MEDS: Aspirin 81 mg Enteric Coated Tablet PO SCH (08:30)
[2017-01-24] MEDS: Folic Acid 1 MG TAB PO SCH (08:30)
[2017-01-24] MEDS: Acetaminophen 325 MG TAB PO PRN (10:25)
[2017-01-24] MEDS: Polyethylene Glycol 3350 17 GM Packet PO SCH (10:26)
[2017-01-25] MEDS: Potassium Chloride 20 MEQ TAB PO SCH (07:53)
[2017-01-25] MEDS: Acetaminophen 325 MG TAB PO PRN (07:53)
[2017-01-25] MEDS: Aspirin 81 mg Enteric Coated Tablet PO SCH (09:02)
[2017-01-25] MEDS: Apixaban 5 MG TAB PO SCH ×2 (09:02→20:22)
[2017-01-25] MEDS: Losartan Potassium 25 MG TAB PO SCH (09:03)
[2017-01-25] MEDS: Folic Acid 1 MG TAB PO SCH (09:03)
[2017-01-25] MEDS: Furosemide 20 MG TAB PO SCH (09:03)
[2017-01-25] MEDS: Polyethylene Glycol 3350 17 GM Packet PO SCH (09:05)
[2017-01-25] MEDS: Ondansetron ODT 4 MG TAB SL PRN (12:35)
--- NOTE | 2017-01-25 18:19 | PRG ---
DATE OF SERVICE: 01/25/2017 SUBJECTIVE: The patient said that she thinks she is doing better. She said she is doing better wit h her walker. She has had no dysuria. OBJECTIVE: GENERAL: The patient is lying in bed, seems very comfortable in no distress. VITAL SIGNS: Shows a temperature of 98.4, pulse 65, respirations 18, O2 sat 95% on room air and blo od pressure 133/63. LUNGS: Clear. HEART: Regular rate. ASSESSMENT: 1. Urinary tract infection/pyelonephritis. A. Complicated by bacteremia with Escherichia coli. Two of 2 blood cultures were positive for Esch erichia coli that are sensitive to the Levaquin. B. Repeat blood cultures on 01/13/2017, showed no growth x2. C. Urine culture grew Escherichia coli with a colony count greater than 100,000. Organism sensitiv e to Levaquin. D. Completed 7-day course of IV Levaquin on 01/17/2017, and now on oral Levaquin. E. Continued improvement and remains afebrile. 2. Hypertension, controlled. 3. Atrial fibrillation, chronic. A. Rate controlled. B. On anticoagulant and amiodarone. 4. History of pontine stroke. A. Presented with right facial droop, mild dysphagia and right hemiparesis on 05/2016. B. Marked improvement with only mild right-sided weakness. 5. Diastolic dysfunction. A. No evidence of acute congestive heart failure. 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 7. Chronic low back pain secondary to lumbar spondylosis. 8. Fibromyalgia. 9. Weakness and gait abnormality. A. Complicated by frequent falls. B. Improving. 10. Migraine headaches, controlled. 11. Abnormal liver function studies. A. Hepatocellular injury, suspect related to the bacteremia. PLAN: Continue present care. Continue physical therapy. We will continue physical therapy for at least another week and then we will reevaluate further stay. We will also later follow her liver st udies.
[2017-01-26] MEDS: Acetaminophen 325 MG TAB PO PRN ×2 (00:44→19:48)
[2017-01-26] MEDS: Folic Acid 1 MG TAB PO SCH (08:17)
[2017-01-26] MEDS: Potassium Chloride 20 MEQ TAB PO SCH (08:17)
[2017-01-26] MEDS: Furosemide 20 MG TAB PO SCH (08:17)
[2017-01-26] MEDS: Aspirin 81 mg Enteric Coated Tablet PO SCH (08:17)
[2017-01-26] MEDS: Losartan Potassium 25 MG TAB PO SCH (08:17)
[2017-01-26] MEDS: Apixaban 5 MG TAB PO SCH ×2 (08:18→19:48)
[2017-01-26] MEDS: Polyethylene Glycol 3350 17 GM Packet PO SCH (08:19)
--- NOTE | 2017-01-26 11:47 | PRG ---
DATE OF SERVICE: 01/26/2017 SUBJECTIVE: The patient state that she has been doing pretty good, still having a little nausea. S he was having this also at home. Otherwise, she is doing good. She thinks she is making progress w ith her therapy. OBJECTIVE: VITAL SIGNS: Show a temperature of 97.6, pulse 65, respirations 18, O2 saturation 97%, blood pressu re 139/62. LUNGS: Clear. HEART: Regular rate. EXTREMITIES: No edema. ASSESSMENT: 1. Urinary tract infection/pyelonephritis. a. Complicated by bacteremia with Escherichia coli, 2 of 2 blood cultures were positive for Escheri gerald coli that were sensitive to the Levaquin. b. Repeat blood cultures on 01/13/2017, showed no growth x2. c. Urine culture grew Escherichia coli with colony count greater than 100,000. Organism sensitive to Levaquin. She completed 7-day course of IV Levaquin on 01/17/2017, and 9-day course of oral Leva estrada. e. Improved and remains afebrile. 2. Hypertension, controlled. 3. Atrial fibrillation, chronic. a. Rate controlled. b. On anticoagulation and amiodarone. 4. History pontine stroke. a. Presenting with right facial droop, mild dysphagia and right-sided weakness. b. Marked improvement with only mild right-sided weakness. 5. Diastolic dysfunction. a. No evidence of acute congestive heart failure. 6. Type 2 odontoid fracture with nonunion, chronic and stable and asymptomatic. 7. Chronic low back pain secondary to lumbar spondylosis. 8. Fibromyalgia. 9. Weakness, gait abnormality. a. Complicated by frequent falls. b. Improving with no recent fall. 10. Migraine headaches, controlled. 11. Abnormal liver function studies. a. Hepatocellular injury, suspect secondary to bacteremia. 12. Nausea, some may be related to the oral antibiotics. PLAN: Continue physical therapy. We will discontinue the Levaquin and see if this will help with h er nausea. Continue the pantoprazole. We will discontinue the potassium in the event this is also contributing to the nausea. Continue physical therapy.
[2017-01-26] MEDS: HYDROcodone/Acetaminophen 5/325 mg Tablet PO PRN (22:28)
[2017-01-27] MEDS: Potassium Chloride 20 MEQ TAB PO SCH (08:38)
[2017-01-27] MEDS: Losartan Potassium 25 MG TAB PO SCH (08:38)
[2017-01-27] MEDS: Folic Acid 1 MG TAB PO SCH (08:39)
[2017-01-27] MEDS: Aspirin 81 mg Enteric Coated Tablet PO SCH (08:39)
[2017-01-27] MEDS: Furosemide 20 MG TAB PO SCH (08:39)
[2017-01-27] MEDS: Apixaban 5 MG TAB PO SCH ×2 (08:39→19:18)
[2017-01-27] MEDS: Polyethylene Glycol 3350 17 GM Packet PO SCH (08:40)
[2017-01-27] MEDS: HYDROcodone/Acetaminophen 5/325 mg Tablet PO PRN (19:18)
[2017-01-28 05:58] LABS: ALT (SGPT) 88 U/L (8-55); AST (SGOT) 44 U/L (5-34); Alkaline Phosphatase 83 U/L (40-150); Anion Gap 10 mmol/L (10-20); BUN (Urea Nitrogen) 12 mg/dL (9.8-20.1); Bilirubin, Total 0.4 mg/dL (0.2-1.2); Calc. Creatinine Clearance 46 mL/min (70-130); Calcium 8.2 mg/dL (7.8-10.44); Carbon Dioxide 28 mmol/L (23-31); Chloride 103 mmol/L (98-107); Estimated GFR-MDRD 66; Globulin 2.7 g/dL (2.4-3.5); Glucose 87 mg/dL (83-110); Potassium 4.1 mmol/L (3.5-5.1); Protein, Total 5.7 g/dL (6.0-8.3); Sodium 137 mmol/L (136-145)
[2017-01-28] MEDS: Potassium Chloride 20 MEQ TAB PO SCH (08:46)
[2017-01-28] MEDS: Losartan Potassium 25 MG TAB PO SCH (08:47)
[2017-01-28] MEDS: Apixaban 5 MG TAB PO SCH ×2 (08:47→21:00)
[2017-01-28] MEDS: Folic Acid 1 MG TAB PO SCH (08:47)
[2017-01-28] MEDS: Furosemide 20 MG TAB PO SCH (08:47)
[2017-01-28] MEDS: Aspirin 81 mg Enteric Coated Tablet PO SCH (08:47)
[2017-01-28] MEDS: Polyethylene Glycol 3350 17 GM Packet PO SCH (08:50)
--- NOTE | 2017-01-28 15:10 | PRG ---
DATE OF SERVICE: 01/28/2017 SUBJECTIVE: The patient said she is doing all right. She is not nauseated, but has had headache fo r 3 days. She has headaches in the back of her head in the occipital area and down to the neck and across to back of the shoulders. OBJECTIVE: GENERAL: The patient is lying in her chair, reclined a little uncomfortable. VITAL SIGNS: Show a temperature of 98.1, pulse 67, respirations 20, O2 saturation 94% on room air, blood pressure 126/58. LUNGS: Clear. HEART: Regular rate. NECK: Patient has little decreased range of motion and is tender along the paracervical musculature s and up into the nuchal ridge. LABORATORY DATA: Shows sodium of 137, potassium 4.1, BUN 12, creatinine 0.82, glucose 87. Her AST is down to 44 from a high of 167, ALT is down to 88 from a high of 212. Her total bilirubin is 0.8, alkaline phosphatase is 83 and albumin is 3. ASSESSMENT: 1. Urinary tract infection/pyelonephritis. A. Complicated by bacteremia with E. coli, two of 2 blood cultures positive for Escherichia coli th at are sensitive to the Levaquin. B. Repeat blood cultures on 01/13/2017, showed no growth x2. C. Urine grew Escherichia coli, colony count greater than 100,000. Organism sensitive to Levaquin. Completed a 10-day course of IV Levaquin and 9-day course of oral Levaquin. D. Improved remains afebrile and asymptomatic. 2. Hypertension, controlled. 3. Atrial fibrillation, chronic. A. Rate controlled. B. On chronic anticoagulation and amiodarone. 4. History of pontine stroke. A. Presenting with right facial droop, mild dysphagia and right-sided weakness. B. Marked improvement with only minimal right-sided weakness remaining. 5. Diastolic dysfunction. A. No evidence of acute congestive heart failure. 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 7. Chronic low back pain secondary to lumbar spondylosis. 8. Fibromyalgia. 9. Weakness and gait abnormality. A. Complicated by falls. B. Improved, no recent fall. 10. Migraine headaches. 11. Abnormal liver function studies. A. Secondary to hepatocellular injury from the bacteremia to be resolving as of 01/28/2017. 12. Muscle contraction type headaches. 13. Nausea, improved. PLAN: Continue present care. Continue physical therapy. We will place the patient on a pump for moist heat to the back of the neck and skull for the chronic pain and gentle range of motion ex ercises.
[2017-01-29] MEDS: Potassium Chloride 20 MEQ TAB PO SCH (08:30)
[2017-01-29] MEDS: Apixaban 5 MG TAB PO SCH ×2 (08:31→21:10)
[2017-01-29] MEDS: Losartan Potassium 25 MG TAB PO SCH (08:31)
[2017-01-29] MEDS: Furosemide 20 MG TAB PO SCH (08:31)
[2017-01-29] MEDS: Polyethylene Glycol 3350 17 GM Packet PO SCH (08:31)
[2017-01-29] MEDS: Folic Acid 1 MG TAB PO SCH (08:31)
[2017-01-29] MEDS: Aspirin 81 mg Enteric Coated Tablet PO SCH (08:31)
[2017-01-30] MEDS: Potassium Chloride 20 MEQ TAB PO SCH (08:36)
[2017-01-30] MEDS: Folic Acid 1 MG TAB PO SCH (08:37)
[2017-01-30] MEDS: Apixaban 5 MG TAB PO SCH ×2 (08:37→20:26)
[2017-01-30] MEDS: Aspirin 81 mg Enteric Coated Tablet PO SCH (08:37)
[2017-01-30] MEDS: Furosemide 20 MG TAB PO SCH (08:38)
[2017-01-30] MEDS: Polyethylene Glycol 3350 17 GM Packet PO SCH (08:38)
[2017-01-30] MEDS: Losartan Potassium 25 MG TAB PO SCH (08:38)
[2017-01-31] MEDS: Losartan Potassium 25 MG TAB PO SCH (08:44)
[2017-01-31] MEDS: Apixaban 5 MG TAB PO SCH ×2 (08:45→20:47)
[2017-01-31] MEDS: Potassium Chloride 20 MEQ TAB PO SCH (08:46)
[2017-01-31] MEDS: Aspirin 81 mg Enteric Coated Tablet PO SCH (08:46)
[2017-01-31] MEDS: Folic Acid 1 MG TAB PO SCH (08:46)
[2017-01-31] MEDS: Furosemide 20 MG TAB PO SCH (08:46)
[2017-01-31] MEDS: Polyethylene Glycol 3350 17 GM Packet PO SCH (08:47)
--- NOTE | 2017-01-31 09:01 | PRG ---
DATE OF SERVICE: 01/31/2017 SUBJECTIVE: The patient thinks she is doing better. She said her headaches are better. Her neck f eels better. The therapy has helped and the heat has helped. OBJECTIVE: The patient is alert, looks much more comfortable, appears in no distress. Temp 98.5, p ulse 65, respirations 17, O2 sat 94% on room air, blood pressure 125/58. Lungs are clear. Heart, r egular rate. Extremities, no edema. ASSESSMENT: 1. Urinary tract infection, pyelonephritis. A. Complicated by bacteremia with E. coli, two of 2 blood cultures positive for E. coli that are sen sitive to the Levaquin. B. Repeat blood cultures on 01/13/2017 showed no growth x2. C. Urine culture grew E. coli, colony count greater than 100,000. Organism sensitive to Levaquin. D. Completed a 10-day course of IV Levaquin and 9-day course of oral Levaquin. E. Resolved and remains asymptomatic as of 01/31/2017. 2. Hypertension, controlled. 3. Atrial fibrillation, chronic. A. Rate controlled. B. On chronic anticoagulation and amiodarone. 4. History of pontine stroke. A. Presenting with right facial droop, mild dysphagia and right-sided weakness. B. Marked improvement will only minimal right-sided weakness remaining. 5. Diastolic dysfunction. A. No evidence of acute congestive heart failure. 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 7. Chronic low back pain secondary to lumbar spondylosis. 8. Fibromyalgia. 9. Weakness and gait abnormality. A. Complicated by fall. B. Improved. No recent fall. 10. Migraine headaches. 11. Abnormal liver function studies. A. Secondary to the hepatocellular injury from the bacteremia, resolving. 12. Muscle contraction type headaches. A. Improved. 13. Nausea, presently resolved. PLAN: Continue present care. Continue physical therapy. I spoke with physical therapy and she is making progress, but still is a fall risk. She is improving. She will benefit by continued physica l therapy.
[2017-01-31 09:32] LABS: ALT (SGPT) 69 U/L (8-55); AST (SGOT) 47 U/L (5-34); Albumin 3.2 g/dL (3.4-4.8); Alkaline Phosphatase 89 U/L (40-150); Anion Gap 14 mmol/L (10-20); BUN (Urea Nitrogen) 14 mg/dL (9.8-20.1); Bilirubin, Total 0.5 mg/dL (0.2-1.2); Calc. Creatinine Clearance 44 mL/min (70-130); Calcium 8.5 mg/dL (7.8-10.44); Carbon Dioxide 25 mmol/L (23-31); Chloride 102 mmol/L (98-107); Estimated GFR-MDRD 67; Glucose 141 mg/dL (83-110); Potassium 3.8 mmol/L (3.5-5.1); Protein, Total 6.2 g/dL (6.0-8.3); Sodium 137 mmol/L (136-145)
[2017-02-01 05:22] LABS: #Basophils 0.1 thou/uL (0.0-0.2); #Eosinphils 0.8 thou/uL (0.0-0.7); #Lymphocytes 1.4 thou/uL (1.20-3.40); #Monocytes 1.1 thou/uL (0.11-0.59); #Neutrophils 6.2 thou/uL (1.40-6.50); %Basophils 1.2 % (0.0-1.0); %Eosinophils 8.3 % (0.0-10.0); %Lymphocytes 14.2 % (21.0-51.0); %Monocytes 11.5 % (0.0-10.0); %Neutrophils 64.8 % (42.0-75.0); Hemoglobin 12.8 g/dL (12.0-16.0); Mean Corpuscular HGB CONC 33.3 g/dL (32.0-36.0); Mean Corpuscular Hemoglobin 32.1 pg (27.0-31.0); Mean Corpuscular Volume 96.4 fl (81.0-99.0); Mean Platelet Volume 7.1 fL (7.4-10.4); Platelet Count 376 thou/uL (130-400); RBC Distribution Width 12.6 % (11.5-14.5); White Blood Cell (WBC) Count 9.6 thou/uL (4.8-10.8)
[2017-02-01] MEDS: Apixaban 5 MG TAB PO SCH ×2 (08:36→20:25)
[2017-02-01] MEDS: Furosemide 20 MG TAB PO SCH (08:37)
[2017-02-01] MEDS: Aspirin 81 mg Enteric Coated Tablet PO SCH (08:37)
[2017-02-01] MEDS: Losartan Potassium 25 MG TAB PO SCH (08:37)
[2017-02-01] MEDS: Folic Acid 1 MG TAB PO SCH (08:37)
[2017-02-01] MEDS: Potassium Chloride 20 MEQ TAB PO SCH (08:38)
[2017-02-01] MEDS: Polyethylene Glycol 3350 17 GM Packet PO SCH (08:38)
--- NOTE | 2017-02-01 10:40 | PRG ---
DATE OF SERVICE: 02/01/2017 SUBJECTIVE: The patient thinks she is doing okay today. She had no complaints. OBJECTIVE: The patient is sitting up in her bedside chair. She is alert and appears comfortable. Her vital signs show a temperature 98.5, pulse 64, respirations 20, O2 saturation 94% on room air, b lood pressure 140/63. Lungs are clear. Heart, regular rate. Extremities: No edema. Lab shows an H\T\H of 12.8 and 38.6, white cell count 9,600, with 65% segs, 14% lymphocytes, platele t count of 376,000. Her sodium is 137, potassium 3.8, BUN 14, creatinine 0.81, glucose 141, AST 47, ALT down to 69, total bilirubin 0.5, alkaline phosphatase 62. ASSESSMENT: 1. Urinary tract infection/pyelonephritis. A. Complicated by bacteremia with Escherichia coli with 2 of 2 blood cultures positive with organism sensitive to Levaquin. B. Repeat blood cultures on 01/13/2017 showed no growth x2. C. Urine culture grew E. coli greater than 100,000. Organism sensitive to the Levaquin. D. Completed a 10-day course of IV Levaquin and 9-day course of oral Levaquin. E. Resolved and remains asymptomatic as of 02/01/2017. 2. Hypertension, controlled. 3. Atrial fibrillation, chronic. A. Rate controlled. B. On chronic anticoagulation and amiodarone. 4. History pontine stroke. A. Presenting with right facial droop, mild dysphagia and right-sided weakness. B. Marked improvement and only minimal right-sided weakness remaining. 5. Diastolic dysfunction. A. No evidence of acute congestive heart failure. 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 7. 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 8. Fibromyalgia, stable. 9. Weakness, gait abnormality. A. Complicated by trouble with balance and frequent falls. B. Improved with no recent fall. 10. Migraine headaches, stable. 11. Abnormal liver function studies. A. 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 12. Muscle contraction type headaches, improved. PLAN: Continue present care. Will continue physical therapy for another week in an effort to try t o improve her general strength, her gait and her balance and reduce her risk of fall.
[2017-02-01] MEDS: Ondansetron ODT 4 MG TAB SL PRN (15:16)
[2017-02-01] MEDS: Acetaminophen 325 MG TAB PO PRN (15:16)
[2017-02-01] MEDS: HYDROcodone/Acetaminophen 5/325 mg Tablet PO PRN (20:26)
[2017-02-02] MEDS: Potassium Chloride 20 MEQ TAB PO SCH (09:03)
[2017-02-02] MEDS: Apixaban 5 MG TAB PO SCH ×2 (09:05→20:22)
[2017-02-02] MEDS: Furosemide 20 MG TAB PO SCH (09:06)
[2017-02-02] MEDS: Losartan Potassium 25 MG TAB PO SCH (09:06)
[2017-02-02] MEDS: Aspirin 81 mg Enteric Coated Tablet PO SCH (09:06)
[2017-02-02] MEDS: Folic Acid 1 MG TAB PO SCH (09:06)
[2017-02-02] MEDS: Polyethylene Glycol 3350 17 GM Packet PO SCH (09:07)
[2017-02-03] MEDS: Losartan Potassium 25 MG TAB PO SCH (08:58)
[2017-02-03] MEDS: Potassium Chloride 20 MEQ TAB PO SCH (08:58)
[2017-02-03] MEDS: Folic Acid 1 MG TAB PO SCH (08:59)
[2017-02-03] MEDS: Apixaban 5 MG TAB PO SCH ×2 (08:59→20:23)
[2017-02-03] MEDS: Aspirin 81 mg Enteric Coated Tablet PO SCH (08:59)
[2017-02-03] MEDS: Furosemide 20 MG TAB PO SCH (08:59)
[2017-02-03] MEDS: Polyethylene Glycol 3350 17 GM Packet PO SCH (09:00)
[2017-02-04] MEDS: Potassium Chloride 20 MEQ TAB PO SCH (09:14)
[2017-02-04] MEDS: Aspirin 81 mg Enteric Coated Tablet PO SCH (09:15)
[2017-02-04] MEDS: Apixaban 5 MG TAB PO SCH ×2 (09:15→20:50)
[2017-02-04] MEDS: Furosemide 20 MG TAB PO SCH (09:15)
[2017-02-04] MEDS: Folic Acid 1 MG TAB PO SCH (09:15)
[2017-02-04] MEDS: Losartan Potassium 25 MG TAB PO SCH (09:15)
[2017-02-04] MEDS: Polyethylene Glycol 3350 17 GM Packet PO SCH (09:18)
--- NOTE | 2017-02-04 09:48 | PRG ---
DATE OF SERVICE: 02/04/2017 SUBJECTIVE: The patient said she is feeling better. Her head is feeling better. Nurses said she d id better with her walking to the bathroom with a walker, her balance seemed better. OBJECTIVE: The patient is sitting in a bedside chair. She is alert, talkative, and appears to be a good mood and in no distress. Vital signs show temperature 98.7, pulse 62, respirations 20, O2 sat 93% on room air, blood pressure 128/62. Lungs are clear. Heart, regular rate. Extremities, no ed kezia. ASSESSMENT: 1. Urinary tract infection/pyelonephritis. A. Complicated by bacteremia with Escherichia coli with 2 of 2 blood cultures positive with organism sensitive to Levaquin. B. Repeat blood cultures on 01/13/2017 showed no growth x2. C. Urine culture grew E. coli greater than 100,000. Organism sensitive to the Levaquin. D. Completed a 10-day course of IV Levaquin and 9-day course of oral Levaquin. E. Resolved and remains asymptomatic as of 02/04/2017. 2. Hypertension, controlled. 3. Atrial fibrillation, chronic. A. Rate controlled. B. On chronic anticoagulation and amiodarone. 4. History pontine stroke. A. Presenting with right facial droop, mild dysphagia and right-sided weakness. B. Marked improvement and only minimal right-sided weakness remaining. 5. Diastolic dysfunction. A. No evidence of acute congestive heart failure as of 02/04/2017. 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 7. 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 8. Fibromyalgia, stable. 9. Weakness, gait abnormality. A. Complicated by trouble with balance and frequent falls. B. Improved with no recent fall, still has some trouble with balance, but this has improved as of 0 02/04/2017. 10. Migraine headaches, stable. 11. Abnormal liver function studies. A. 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 PLAN: The patient is making good progress with her therapy. Her strength is improving. Her transf ers are improving. Her balance seems to be a little better. We will relook at lab work on 02/07/20 17 to reassess the liver function which have been just gradually improving.
[2017-02-04 21:05] VITALS: BMI 23.8
[2017-02-05] MEDS: Potassium Chloride 20 MEQ TAB PO SCH (09:36)
[2017-02-05] MEDS: Losartan Potassium 25 MG TAB PO SCH (09:37)
[2017-02-05] MEDS: Folic Acid 1 MG TAB PO SCH (09:37)
[2017-02-05] MEDS: Apixaban 5 MG TAB PO SCH ×2 (09:38→20:56)
[2017-02-05] MEDS: Furosemide 20 MG TAB PO SCH (09:41)
[2017-02-05] MEDS: Aspirin 81 mg Enteric Coated Tablet PO SCH (09:41)
[2017-02-05] MEDS: Polyethylene Glycol 3350 17 GM Packet PO SCH (09:42)
[2017-02-05] MEDS ORDERED: Docusate 100 MG CAP PO SCH (11:00)
[2017-02-06 06:22] LABS: #Basophils 0.1 thou/uL (0.0-0.2); #Eosinphils 0.7 thou/uL (0.0-0.7); #Lymphocytes 1.4 thou/uL (1.20-3.40); #Monocytes 0.8 thou/uL (0.11-0.59); #Neutrophils 4.2 thou/uL (1.40-6.50); %Basophils 1.4 % (0.0-1.0); %Eosinophils 10.4 % (0.0-10.0); %Lymphocytes 19.9 % (21.0-51.0); %Monocytes 10.3 % (0.0-10.0); %Neutrophils 58.1 % (42.0-75.0); Hemoglobin 12.4 g/dL (12.0-16.0); Mean Corpuscular HGB CONC 32.6 g/dL (32.0-36.0); Mean Corpuscular Hemoglobin 31.1 pg (27.0-31.0); Mean Corpuscular Volume 95.2 fl (81.0-99.0); Mean Platelet Volume 7.6 fL (7.4-10.4); Platelet Count 354 thou/uL (130-400); RBC Distribution Width 12.5 % (11.5-14.5); Red Blood Cell (RBC) Count 3.99 mill/uL (4.20-5.40); White Blood Cell (WBC) Count 7.2 thou/uL (4.8-10.8)
[2017-02-06 06:38] LABS: ALT (SGPT) 54 U/L (8-55); AST (SGOT) 38 U/L (5-34); Alkaline Phosphatase 84 U/L (40-150); Anion Gap 12 mmol/L (10-20); BUN (Urea Nitrogen) 10 mg/dL (9.8-20.1); Bilirubin, Total 0.4 mg/dL (0.2-1.2); Calc. Creatinine Clearance 48 mL/min (70-130); Calcium 8.3 mg/dL (7.8-10.44); Carbon Dioxide 25 mmol/L (23-31); Chloride 104 mmol/L (98-107); Estimated GFR-MDRD 76; Glucose 91 mg/dL (83-110); Potassium 3.7 mmol/L (3.5-5.1); Sodium 137 mmol/L (136-145)
[2017-02-06] MEDS: Furosemide 20 MG TAB PO SCH (08:55)
[2017-02-06] MEDS: Aspirin 81 mg Enteric Coated Tablet PO SCH (08:55)
[2017-02-06] MEDS: Apixaban 5 MG TAB PO SCH ×2 (08:55→20:36)
[2017-02-06] MEDS: Potassium Chloride 20 MEQ TAB PO SCH (08:57)
[2017-02-06] MEDS: Losartan Potassium 25 MG TAB PO SCH (08:58)
[2017-02-06] MEDS: Folic Acid 1 MG TAB PO SCH (08:59)
[2017-02-06] MEDS: Polyethylene Glycol 3350 17 GM Packet PO SCH (08:59)
[2017-02-06] MEDS: Ondansetron ODT 4 MG TAB SL PRN (09:12)
[2017-02-06] MEDS: Docusate 100 MG CAP PO SCH (19:12)
[2017-02-07] MEDS: Polyethylene Glycol 3350 17 GM Packet PO SCH (08:44)
[2017-02-07] MEDS: Potassium Chloride 20 MEQ TAB PO SCH (08:45)
[2017-02-07] MEDS: Aspirin 81 mg Enteric Coated Tablet PO SCH (08:46)
[2017-02-07] MEDS: Losartan Potassium 25 MG TAB PO SCH (08:46)
[2017-02-07] MEDS: Apixaban 5 MG TAB PO SCH ×2 (08:47→20:38)
[2017-02-07] MEDS: Furosemide 20 MG TAB PO SCH (08:48)
[2017-02-07] MEDS: Folic Acid 1 MG TAB PO SCH (08:48)
[2017-02-07] MEDS: Docusate 100 MG CAP PO SCH (08:49)
[2017-02-07 19:00] VITALS: TEMP 98.3
[2017-02-08 07:48] VITALS: BP 132/62
[2017-02-08] MEDS: Potassium Chloride 20 MEQ TAB PO SCH (08:18)
[2017-02-08] MEDS: Apixaban 5 MG TAB PO SCH (08:18)
[2017-02-08] MEDS: Docusate 100 MG CAP PO SCH (08:19)
[2017-02-08] MEDS: Aspirin 81 mg Enteric Coated Tablet PO SCH (08:19)
[2017-02-08] MEDS: Losartan Potassium 25 MG TAB PO SCH (08:19)
[2017-02-08] MEDS: Folic Acid 1 MG TAB PO SCH (08:19)
[2017-02-08] MEDS: Furosemide 20 MG TAB PO SCH (08:19)
[2017-02-08] MEDS: Polyethylene Glycol 3350 17 GM Packet PO SCH (08:20)
[2017-02-08] MEDS: Ondansetron ODT 4 MG TAB SL PRN (11:20)
--- NOTE | 2017-02-08 19:43 | DIS ---
DATE OF ADMISSION: Admitted to acute care on 01/11/2017, transferred to extended care on 01/14/2017. DATE OF DISCHARGE: 02/08/2017 FINAL DIAGNOSES: 1. Urinary tract infection/pyelonephritis. A. Complicated by bacteremia with Escherichia coli with 2 of 2 blood cultures positive with organism sensitive to Levaquin. B. Repeat blood cultures on 01/13/2017 showed no growth x2. C. Urine culture grew E. coli greater than 100,000. Organism sensitive to the Levaquin. D. Completed a 10-day course of IV Levaquin and 9-day course of oral Levaquin. E. Resolved and remains asymptomatic and free of any fever as of 2016. 2. Hypertension, controlled. 3. Atrial fibrillation, chronic. A. Rate controlled. B. On chronic anticoagulation and amiodarone. 4. History pontine stroke. A. Presenting with right facial droop, mild dysphagia and right-sided weakness. B. Marked improvement and only minimal right-sided weakness remaining. 5. Diastolic dysfunction. A. No evidence of acute congestive heart failure as of 02/08/2017. 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 7. 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 8. Fibromyalgia, stable. 9. Weakness, gait abnormality. A. Complicated by trouble with balance and frequent falls. B. Improved, where she is ambulating well with the use of a rolling walker , but still needs some standby assistance for precaution due to her balance. 10. Migraine headaches, stable. 11. Abnormal liver function studies. A. Secondary to hepatocellular injury from the urosepsis that has resolved as of 02/08/2017. 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 SUMMARY: The patient is an 87-year-old white female who has a history of atrial fibrillation with the rate controlled on anticoagulation with Eliquis. She also has hypertension and suffered a stroke involving the left pontine region that left her with mild right-sided weakness. This occurred in 05/2016 and presented with right facial drooping, little difficulty swallowing and right -sided weakness. Patient also has chronic low back pain from spondylosis and fibromyalgia and chronic headaches, for which she has been on hydrocodone/ acetaminophen 7.5/325 twice a day as needed at home. The patient lives at home with her and requires a little assistance with dressing and bathing and ambulates with a walker. She has trouble with her balance and has had several falls. The patient was brought to the emergency room by her on the morning of the day of admission complaining of increased weakness, increased dizziness, headaches and fever of 102.6. She was very nauseated and extremely weak. Her initial evaluation showed a very weak appearing 87-year-old white female with a temperature of 102.6. Her white cell count elevated to 10,000. Her CK-MB was normal. Troponin I was normal. B-type natriuretic peptide normal. Urine showed WBCs too numerous to count. Her chest x-ray showed no evidence of infiltrate, nor pleural effusion. Heart size was normal. The patient had blood cultures drawn, urine culture obtained and the patient started on IV fluids and IV Rocephin for a urinary tract infection and pyelonephritis. HOSPITAL COURSE: The patient was continued on IV fluids and IV antibiotics. The patient was also placed on IV Levaquin. The patient gradually showed marked improvement. She developed increased leukocytosis, it gradually resolved. The patient's blood cultures grew E. coli, 2 of 2 positive culture with organism sensitive to the Levaquin. Her urine grew E. coli with a colony count greater than 100,000 and also sensitive to the Levaquin. The patient was moved to extended care for continued IV antibiotics on 01/14/2017 and also for physical therapy. The patient completed a 10-day course of IV Levaquin and then was given an additional 9-day course of oral Levaquin. Her followup blood cultures that were done on 01/13/2017 showed no growth x2. The pyelonephritis, urinary tract infection resolved and there was no recurrence during her hospitalization. She did undergo a renal ultrasound that was normal. She had a little post-residual urine of 67.8 mL. The patient had no recurrence of the urinary/pyelonephritis. Patient's atrial fibrillation rate was controlled and she had no trouble with this during her hospitalization. Physical therapy and occupational therapy work with patient to help with her severe weakness and severe balance and during the time of her hospital stay, she showed continual progress where she was walking 150 to 200 feet twice today with rolling walker and just supervision in the event there was a balance problem. She did very well with her transferring and only had standby assistance. During her hospitalization, she did have trouble with her headaches. These were not just the migraine type headache see for more muscle contraction and occurred in the back of her head and it radiated down her neck into the bitemporal area. For these, she was treated with heat application and range of motion exercises. She also was given the hydrocodone 5/325 lower dose what she was using at home and this seemed to work very, very well. The patient made excellent progress and by 02/08/2017, it is felt like she could be safely managed at home. It is recommended that home health to see her and arrange for in-home physical therapy and occupational therapy. Patient has opted for outpatient PT/OT here at the hospital. Also, patient had a caregiver that helps her in the day and I recommend they continue to have someone with her in the day to assist her with her ADLs and for standby assistance when she is walking, particularly since she still has some trouble with her balance. Her last lab done on 02/06/2017 showed sodium 137, potassium of 3.7. Her BUN was 10, creatinine 0.73, glucose 91. Her total bilirubin was 38, ALT 54, alkaline phosphatase 94, platelet count was 354,000. During this hospitalization, patient had an elevation of her liver enzymes with ALT up to 212 and AST up to high of 167 with normal total bilirubin and normal alkaline phosphatase. These were felt to be secondary to hepatocellular injury as a result of the urosepsis. These gradually normalized. The patient was discharged on 02/08/2017 in good condition. DISPOSITION DIET: Regular diet. No added salt. ACTIVITIES: Ambulate with the use of a walker. I encourage her to have at least some standby assistance due to her little trouble with balance particularly during times of getting up and down, dressing and showering. Outpatient PT/OT.Fall precautions. MEDICATIONS: Acetaminophen 325 mg 2 every 4 hours as needed, amiodarone 200 mg daily, Eliquis 2.5 mg b.i.d., aspirin 81 mg daily, Dulcolax suppository 10 mg 1 per rectum daily p.r.n., docusate sodium 100 mg daily, folic acid 1 mg daily, furosemide 20 mg daily, Neurontin 600 mg b.i.d. as needed, hydrocodone 5/325 one b.i.d. as needed for pain, losartan 100 mg daily, pantoprazole 40 mg daily, MiraLax 17 grams in 8 ounces of water daily, KCl 10 mEq daily. FOLLOWUP: I will see patient in my office in 2 weeks with a CBC and a CMP, which home health can draw. CODE STATUS: FULL CODE. MTDD
== END 2017-02-08 11:25 | disposition home or self-care (01) | DRG 690 ==
LOC: MADMS 09:22
PROVIDERS: ADMIT Family Medicine; ATTEND Family Medicine
DX: N12 Tubulo-interstitial nephritis, not specified as acute or chronic (principal); I69.351 Hemiplegia and hemiparesis following cerebral infarction affecting right dominant side; I48.91 Unspecified atrial fibrillation; R13.10 Dysphagia, unspecified; I11.0 Hypertensive heart disease with heart failure; I50.30 Unspecified diastolic (congestive) heart failure; B96.20 Unspecified Escherichia coli [E. coli] as the cause of diseases classified elsewhere; G43.909 Migraine, unspecified, not intractable, without status migrainosus; E78.5 Hyperlipidemia, unspecified; Z79.01 Long term (current) use of anticoagulants; I69.392 Facial weakness following cerebral infarction; I69.391 Dysphagia following cerebral infarction; M47.896 Other spondylosis, lumbar region; M79.7 Fibromyalgia; G44.89 Other headache syndrome; K21.9 Gastro-esophageal reflux disease without esophagitis
CPT/HCPCS: 36415; 80048; 80053; 85025; 85610; G8978-GP-CK; G8979-GP-CI; J1956; Q0162

== ENCOUNTER 2017-02-19 09:16 | Outpatient (CLI) | payer MEDICARE ==
[2017-02-19 09:36] LABS: Hemoglobin 13.5 g/dL (12.0-16.0); Mean Corpuscular Hemoglobin 30.1 pg (27.0-31.0); Mean Corpuscular Volume 97.1 fl (81.0-99.0); Mean Platelet Volume 6.6 fL (7.4-10.4); Platelet Count 358 thou/uL (130-400); RBC Distribution Width 12.8 % (11.5-14.5)
[2017-02-19 10:31] LABS: ALT (SGPT) 51 U/L (8-55); AST (SGOT) 44 U/L (5-34); Albumin 3.4 g/dL (3.4-4.8); Alkaline Phosphatase 114 U/L (40-150); Anion Gap 12 mmol/L (10-20); BUN (Urea Nitrogen) 9 mg/dL (9.8-20.1); Bilirubin, Total 0.3 mg/dL (0.2-1.2); Calc. Creatinine Clearance 0 mL/min (70-130); Calcium 8.8 mg/dL (7.8-10.44); Carbon Dioxide 28 mmol/L (23-31); Chloride 104 mmol/L (98-107); Estimated GFR-MDRD 63; Globulin 3.6 g/dL (2.4-3.5); Glucose 97 mg/dL (83-110); Potassium 4.3 mmol/L (3.5-5.1); Sodium 140 mmol/L (136-145)
== END 2017-02-19 09:17 | disposition home or self-care (01) ==
LOC: MADLABBHPM 09:16
PROVIDERS: ATTEND Family Medicine
DX: I48.91 Unspecified atrial fibrillation (principal)
CPT/HCPCS: 36415; 80053; 85027

== ENCOUNTER 2018-01-21 19:51 | Emergency (ER) | payer MEDICARE ==
[~2018-01-21 19:51] MED LIST changes: +Sodium Chloride 0.9% 1,000 ML BAG ONE; -Sodium Chloride Irrig Solution 250 ML BOT ONE
[2018-01-21] MEDS ORDERED: HYDROcodone/Acetaminophen 5/325 mg Tablet ONE (20:16)
[2018-01-21] MEDS ORDERED: Acetaminophen 325 MG TAB ONE (20:17)
[2018-01-21 20:31] LABS: #Lymphocytes 0.6 thou/uL (1.20-3.40); #Monocytes 0.7 thou/uL (0.11-0.59); #Neutrophils 10.3 thou/uL (1.40-6.50); %Basophils 0.4 % (0.0-1.0); %Eosinophils 0.1 % (0.0-10.0); %Lymphocytes 5.1 % (21.0-51.0); %Monocytes 6.1 % (0.0-10.0); %Neutrophils 88.3 % (42.0-75.0); Hemoglobin 13.3 g/dL (12.0-16.0); Mean Corpuscular Hemoglobin 30.7 pg (27.0-31.0); Mean Corpuscular Volume 93.3 fL (78.0-98.0); Platelet Count 414 thou/uL (130-400); RBC Distribution Width 12.4 % (11.5-14.5); Red Blood Cell (RBC) Count 4.33 mill/uL (4.20-5.40); White Blood Cell (WBC) Count 11.7 thou/uL (4.8-10.8)
[2018-01-21 20:43] LABS: Anion Gap 16 mmol/L (10-20); BUN (Urea Nitrogen) 12 mg/dL (9.8-20.1); Calc. Creatinine Clearance 0 mL/min (70-130); Carbon Dioxide 26 mmol/L (23-31); Chloride 97 mmol/L (98-107); Estimated GFR-MDRD 59; Glucose 128 mg/dL (83-110); Potassium 4.3 mmol/L (3.5-5.1); Sodium 135 mmol/L (136-145)
[2018-01-21] MEDS ORDERED: cefTRIAXone\\ROCEPHIN 1 GM VIAL ONE (21:10)
[2018-01-21 21:13] LABS: Bilirubin Negative (Negative); Blood, Urine Moderate (Negative); Clarity Cloudy (Clear); Glucose, Urine (Dipstick) Negative (Negative); Leukocyte Large (Negative); Nitrite Negative (Negative); Protein, Urine (Dipstick) 100 mg/dL (Neg-Trace); pH, Urine 8.5 (5.0-9.0)
[2018-01-21 21:14] LABS: Bacteria/HPF 4+ HPF (None Seen)
[2018-01-21 21:15] LABS: Other Casts/LPF 4-6 MIXED CASTS LPF (0-3 Hyaline)
[2018-01-21] MEDS ORDERED: Ibuprofen 800 MG TAB ONE (21:30)
[2018-01-21] MEDS ORDERED: Ondansetron HCl/PF 4 MG/2 ML Vial ONE (22:40)
== END 2018-01-21 22:47 | disposition short-term general hospital (02) ==
LOC: MADERS 19:51
DX: N39.0 Urinary tract infection, site not specified (principal); A41.9 Sepsis, unspecified organism; I48.91 Unspecified atrial fibrillation; M19.90 Unspecified osteoarthritis, unspecified site; I50.9 Heart failure, unspecified; E78.5 Hyperlipidemia, unspecified
CPT/HCPCS: 36415; 80048; 81003; 81015; 83605; 85025; 96361; 96365; 96375; A4353; J0696; J2405; J3370; J7050

== ENCOUNTER 2018-01-28 16:53 | Inpatient (IN) | payer MEDICARE ==
[2018-01-28] MEDS: Apixaban 5 MG TAB PO SCH (21:03)
[2018-01-28] MEDS: Atorvastatin Calcium 10 MG TAB PO SCH (21:03)
[2018-01-28] MEDS: Docusate 100 MG CAP PO SCH (21:04)
[2018-01-28] MEDS: Gabapentin 300 MG CAP PO SCH (21:04)
[2018-01-28] MEDS: Cefdinir 300 MG CAP PO SCH (21:04)
[2018-01-29 05:14] LABS: #Basophils 0.1 thou/uL (0.0-0.2); #Eosinphils 0.9 thou/uL (0.0-0.7); #Monocytes 0.7 thou/uL (0.11-0.59); #Neutrophils 4.3 thou/uL (1.40-6.50); %Eosinophils 11.6 % (0.0-10.0); %Monocytes 8.9 % (0.0-10.0); %Neutrophils 53.5 % (42.0-75.0); Hemoglobin 11.2 g/dL (12.0-16.0); Mean Corpuscular HGB CONC 33.2 g/dL (32.0-36.0); Mean Corpuscular Hemoglobin 31.2 pg (27.0-31.0); Mean Corpuscular Volume 94.1 fL (78.0-98.0); Mean Platelet Volume 5.4 fL (7.4-10.4); Platelet Count 413 thou/uL (130-400); RBC Distribution Width 12.9 % (11.5-14.5); Red Blood Cell (RBC) Count 3.58 mill/uL (4.20-5.40); White Blood Cell (WBC) Count 8.1 thou/uL (4.8-10.8)
[2018-01-29 05:35] LABS: ALT (SGPT) 17 U/L (8-55); AST (SGOT) 15 U/L (5-34); Albumin 3.2 g/dL (3.4-4.8); Alkaline Phosphatase 78 U/L (40-150); Anion Gap 12 mmol/L (10-20); BUN (Urea Nitrogen) 5 mg/dL (9.8-20.1); Bilirubin, Total 0.2 mg/dL (0.2-1.2); Calc. Creatinine Clearance 0 mL/min (70-130); Carbon Dioxide 27 mmol/L (23-31); Chloride 106 mmol/L (98-107); Estimated GFR-MDRD 77; Globulin 2.8 g/dL (2.4-3.5); Glucose 90 mg/dL (83-110); Potassium 4.3 mmol/L (3.5-5.1); Sodium 141 mmol/L (136-145)
--- NOTE | 2018-01-29 05:50 | HP ---
Admitted to [facility] to [facility] on 01/28/2018. CHIEF COMPLAINT: Weakness. HISTORY OF PRESENT ILLNESS: The patient is an 88-year-old white female, who has a history of paroxys mal atrial fibrillation for which she is on anticoagulant and amiodarone. She also has a history of hypertension and has suffered a stroke involving the left pontine region that left her with a very mi ld right-sided weakness. The patient lives at home with her and is able to ambulate with the walker. She requires a little assistance with dressing and bathing. She has a caregiver that also a ssist her during the daytime. The patient was hospitalized at [facility] from 01/22/2018 un til 01/28/2018 with urinary tract infection. She presented with the fever of 102.7 with marked leuko cytosis and with left shift. Blood cultures were negative. Her urine culture grew an E. Coli that w as sensitive to the cephalosporin. She was treated with IV ceftriaxone, which the organism is sensiti ve to and was treated for a 7-day period. She also underwent an ultrasound of the kidneys, which did not show any bladder distention nor evidence of hydronephrosis. The patient has had no more fevers, feeling better, was having no more urinary symptoms with the presentation of the fever and kind of a sepsis like picture is felt this probably was an upper urinary tract infection, i.e., pyelonephritis . During her hospitalization, she had some significant urinary retention and required a Sebastian cathet er. First effort to remove this was unsuccessful. At a late date, the catheter was removed again an d at this time, she has been able to void successfully. She has been doing much better, feels better , but still weak. She is up tolerating and sitting in the chair and is ambulating some in the halls with the walker, but cannot transfer. She is much weaker and very deconditioned compared to her pre- hospital condition. The patient was transferred to [facility] to [facility] on 01/28/2018. She was seen in her room soon after her admission and was able to give me a history of what had happ ened and such she is much weaker than usual, but is able to walk, but not able to transfer independen tly, which she was doing prior to the hospitalization. PAST MEDICAL HISTORY: Hospitalized at [facility] from 01/22/2018 until 01/28/2018 for urina ry tract infection probably upper tract with the sepsis-like picture, treated with 7-day course of IV ceftriaxone, culture grew E. Coli. The patient was hospitalized in 12/2016 with urinary tract infec tion with pyelonephritis, complicated by bacteremia with E. Coli. The patient has hypertension, buckle sewer yaa atrial fibrillation for which she is on Eliquis and amiodarone. The patient had a left pontine i nfarct in May 2016, presenting with right facial droop and some mild dysphagia and right hemipleg ia. The symptoms have all resolved except for some very mild right-sided weakness. The patient has a history of type 2 odontoid fracture, was nonunion, that is chronic and asymptomatic, which required no treatment. She has a history of fibromyalgia, history of migraine headaches and muscle contractio n-type headaches. She has chronic low back pain secondary to severe degenerative changes, particularl y at L3-L4, L4-L5 and L5-S1. The patient has had an appendectomy and hysterectomy, colonoscopy, last done 2004 showing diverticulosis, cervical fusion in 1973, hemorrhoidectomy and tonsillectomy. The patient is a 3, para 3. PRESENT MEDICATIONS: Cefdinir 300 mg b.i.d., started on 01/28/2018, Eliquis 2.5 mg b.i.d., gabapenti n 600 mg b.i.d., pantoprazole 40 mg daily, furosemide 40 mg daily, losartan 50 mg daily, amiodarone 2 00 mg daily, aspirin 81 mg daily, multiple vitamins one a day, KCl extended release 10 mEq daily, fol ic acid one a day, hydrocodone/acetaminophen 5/325 one b.i.d. as needed, uses very infrequent, Dramam ine 50 mg as needed at bedtime, Colace 100 mg b.i.d., and Senokot one daily. ALLERGIES: MELOXICAM causes upset stomach, PENICILLIN G and SULFA DRUGS. REVIEW OF SYSTEMS: General: The patient states she has not had any more fever. Her appetite has be en good. She does not think her weight has changed any. Head and Neck: The patient states she has c hronic headaches and has had some while in the hospital. Pulmonary: No complaints. Cardiovascular: No complaints. Gastrointestinal: No complaints. Genitourinary: The patient states she is voidin g fine. HABITS: Alcohol: None. Tobacco: None. SOCIAL HISTORY: The patient is , lives at home with her , has a caregiver, Jeanne, that assist her with ADLs. CODE STATUS: FULL CODE. PHYSICAL EXAMINATION: GENERAL: A very pleasant 88-year-old white female, who is lying in bed with the head of her bed elev ated. She is alert and oriented x3, very talkative and appears very comfortable. VITAL SIGNS: Temperature 98.4, pulse 62, respirations 20, blood pressure 164/75, O2 sat 96% on room air. HEAD: Normocephalic and atraumatic. EARS: TM on the left clear. Right small amount of cerumen. EYES: Pupils were equal, round and reactive. Sclarea nonicteric. NOSE: Normal. MOUTH AND THROAT: Normal. NECK: Carotids were equal and strong. No bruits. Thyroid not enlarged. LUNGS: Clear. HEART: Regular rate. There is a grade 3/6 blowing systolic murmur heard best at the apex of the hea rt. ABDOMEN: Soft, nontender. EXTREMITIES: No edema. NEUROLOGIC: The patient is alert and oriented x3 with no focal weakness. IMPRESSION: 1. Generalized weakness and deconditioning; A. Secondary to recent hospitalization for urinary tract infection. 2. Hospitalized at [facility] from 01/22/2018 to 01/28/2018 for; A. Urinary tract infection from Escherichia coli with sepsis-like presentation. B. Urinary retention, which is resolved. 3. Urinary tract infection/pyelonephritis; A. Required hospitalization at [facility] from 01/22/2018 to 01/28/2018. B. Presented with temperature of 102.7 and leukocytosis with left shift. C. Urine culture grew Escherichia coli with organism sensitive to ceftriaxone. Blood cultures no gr owth. D. Completed 7-day course of ceftriaxone and presently on oral antibiotics for another week. 4. Hypertension, controlled. 5. Paroxysmal atrial fibrillation; A. On amiodarone and anticoagulant. B. Rate controlled. 6. History of left pontine stroke on 05/2016. A. Presented with right facial drooping, mild dysphagia and right hemiplegia. B. Deficits have all resolved. 7. History of diastolic dysfunction; A. No evidence of acute congestive heart failure as of 01/28/2018. 8. Chronic low back pain secondary to spondylosis of the lumbar spine. 9. Fibromyalgia. 10. Migraine headaches. PLAN: The patient has been admitted to the [facility] for where she will undergo physical thera py and occupational therapy to try to improve her general strength and conditioning in hopes to jose re her to her pre-admission functional level. Plans are for her to go home where she will have help to assist her and we will continue her routine medications. The patient had completed a 7-day course of ceftriaxone for the urinary tract infection. We will complete another 7 days on oral antibiotic use and cefdinir completing a 2-week course of antibiotics. CODE STATUS: FULL CODE.
[2018-01-29] MEDS: Amiodarone 200 MG TAB PO SCH (08:19)
[2018-01-29] MEDS: Apixaban 5 MG TAB PO SCH ×2 (08:20→20:42)
[2018-01-29] MEDS: Aspirin 81 mg Enteric Coated Tablet PO SCH (08:21)
[2018-01-29] MEDS: Docusate 100 MG CAP PO SCH ×2 (08:21→20:42)
[2018-01-29] MEDS: Furosemide 20 MG TAB PO SCH (08:22)
[2018-01-29] MEDS: Losartan 25 MG TAB PO SCH (08:22)
[2018-01-29] MEDS: Folic Acid 1 MG TAB PO SCH (08:22)
[2018-01-29] MEDS: Gabapentin 300 MG CAP PO SCH ×2 (08:22→20:42)
[2018-01-29] MEDS: Senokot 8.6 MG TAB PO SCH (08:23)
[2018-01-29] MEDS: Multivit, Therapeutic 1 TAB PO SCH (08:23)
[2018-01-29] MEDS: Cefdinir 300 MG CAP PO SCH ×2 (08:29→20:42)
--- NOTE | 2018-01-29 13:53 | PRG ---
DATE OF SERVICE: 01/29/2018 SUBJECTIVE: The patient is up sitting in a bedside chair. She said she slept pretty well. This mor mike she is feeling good, just weak. She has had no shortness of breath, no chest pain. OBJECTIVE: The patient is alert, appears very comfortable, in no distress. Her temperature is 97.4, pulse 64, respirations 18, O2 sat 98% on room air, blood pressure 133/59. Her lungs are clear. Hea rt, regular rate with a grade 3/6 blowing systolic murmur heard best at the apex. Lab shows an H&H of 11.2 and 33.7, white cell count 8,100 with 54% neutrophils, 25% lymphocytes and a platelet count of 413,000. Sodium 141, potassium 4.3, BUN 5, creatinine 0.7, GFR 77, glucose 90, al bumin 3.2. ASSESSMENT: 1. Generalized weakness and deconditioning; A. Secondary to recent hospitalization for urinary tract infection. B. Improved as of 01/29/2018. 2. Hospitalized at [facility] from 01/22/2018 to 01/28/2018 for; A. Urinary tract infection from Escherichia coli with sepsis-like presentation. B. Urinary retention, which is resolved. 3. Urinary tract infection/pyelonephritis; A. Required hospitalization at [facility] from 01/22/2018 to 01/28/2018. B. Presented with temperature of 102.7 and leukocytosis with left shift. C. Urine culture grew Escherichia coli with organism sensitive to ceftriaxone. Blood cultures no gr owth. D. Completed 7-day course of ceftriaxone and presently on oral antibiotics for another week. E. Remains asymptomatic and on oral antibiotics as of 01/29/2018. 4. Hypertension, controlled. 5. Paroxysmal atrial fibrillation; A. On amiodarone and anticoagulant. B. Rate controlled. 6. History of left pontine stroke on 05/2016. A. Presented with right facial drooping, mild dysphagia and right hemiplegia. B. Deficits have all resolved. 7. History of diastolic dysfunction; A. No evidence of acute congestive heart failure as of 01/29/2018. 8. Chronic low back pain secondary to spondylosis of the lumbar spine. 9. Fibromyalgia. 10. Migraine headaches. PLAN: Continue present care. Continue oral antibiotics. Continue PT and OT.
[2018-01-29] MEDS: Atorvastatin Calcium 10 MG TAB PO SCH (20:42)
[2018-01-29] MEDS: HYDROcodone/Acetaminophen 5/325 mg Tablet PO PRN (22:28)
[2018-01-30] MEDS: Apixaban 5 MG TAB PO SCH ×2 (09:14→20:23)
[2018-01-30] MEDS: Aspirin 81 mg Enteric Coated Tablet PO SCH (09:14)
[2018-01-30] MEDS: Amiodarone 200 MG TAB PO SCH (09:14)
[2018-01-30] MEDS: Cefdinir 300 MG CAP PO SCH ×2 (09:14→20:22)
[2018-01-30] MEDS: Docusate 100 MG CAP PO SCH ×2 (09:14→20:23)
[2018-01-30] MEDS: Gabapentin 300 MG CAP PO SCH ×2 (09:14→20:21)
[2018-01-30] MEDS: Furosemide 20 MG TAB PO SCH (09:14)
[2018-01-30] MEDS: Multivit, Therapeutic 1 TAB PO SCH (09:15)
[2018-01-30] MEDS: Losartan 25 MG TAB PO SCH (09:15)
[2018-01-30] MEDS: Folic Acid 1 MG TAB PO SCH (09:15)
[2018-01-30] MEDS: Senokot 8.6 MG TAB PO SCH (09:15)
[2018-01-30] MEDS: Acetaminophen 325 MG TAB PO PRN (13:48)
--- NOTE | 2018-01-30 15:33 | PRG ---
DATE OF SERVICE: 01/30/2018 SUBJECTIVE: The patient said she is doing fine this morning. She has no complaints. She has no hea dache. She is having no trouble with her breathing. She is making progress with her therapy. OBJECTIVE: The patient is lying in bed, preparing to get up for breakfast. Her vital signs shows a temperature of 97.9, pulse 62, respirations 18, O2 sat 97% on room air, blood pressure 138/77. Lung s are clear. Heart; regular rate. Extremities; no edema. ASSESSMENT: 1. Generalized weakness and deconditioning; A. Secondary to recent hospitalization for urinary tract infection. B. Improved as of 01/30/2018. 2. Hospitalized at [facility] from 01/22/2018 to 01/28/2018 for; A. Urinary tract infection from Escherichia coli with sepsis-like presentation. B. Urinary retention, which is resolved. 3. Urinary tract infection/pyelonephritis; A. Required hospitalization at [facility] from 01/22/2018 to 01/28/2018. B. Presented with temperature of 102.7 and leukocytosis with left shift. C. Urine culture grew Escherichia coli with organism sensitive to ceftriaxone. Blood cultures no gr owth. D. Completed 7-day course of ceftriaxone and presently on oral antibiotics for another week. E. Remains asymptomatic and on oral antibiotics as of 01/30/2018. 4. Hypertension, controlled. 5. Paroxysmal atrial fibrillation; A. On amiodarone and anticoagulant. B. Rate controlled. 6. History of left pontine stroke on 05/2016. A. Presented with right facial drooping, mild dysphagia and right hemiplegia. B. Deficits have all resolved. 7. History of diastolic dysfunction; A. No evidence of acute congestive heart failure as of 01/30/2018. 8. Chronic low back pain secondary to spondylosis of the lumbar spine. 9. Fibromyalgia. 10. Migraine headaches. PLAN: The patient continues to improve. We will continue the PT/OT.
[2018-01-30 17:50] VITALS: BMI 23.6
[2018-01-30] MEDS: Atorvastatin Calcium 10 MG TAB PO SCH (20:22)
[2018-01-31] MEDS: Folic Acid 1 MG TAB PO SCH (09:27)
[2018-01-31] MEDS: Gabapentin 300 MG CAP PO SCH ×2 (09:27→20:20)
[2018-01-31] MEDS: Multivit, Therapeutic 1 TAB PO SCH (09:27)
[2018-01-31] MEDS: Senokot 8.6 MG TAB PO SCH (09:27)
[2018-01-31] MEDS: Apixaban 5 MG TAB PO SCH ×2 (09:27→20:20)
[2018-01-31] MEDS: Docusate 100 MG CAP PO SCH ×2 (09:27→20:21)
[2018-01-31] MEDS: Furosemide 20 MG TAB PO SCH (09:28)
[2018-01-31] MEDS: Cefdinir 300 MG CAP PO SCH ×2 (09:28→20:21)
[2018-01-31] MEDS: Amiodarone 200 MG TAB PO SCH (09:28)
[2018-01-31] MEDS: Losartan 25 MG TAB PO SCH (09:28)
[2018-01-31] MEDS: Aspirin 81 mg Enteric Coated Tablet PO SCH (09:28)
[2018-01-31] MEDS: Fluticasone Propionate Nasal Spray 16 gm Bottle NASAL SCH (10:18)
[2018-01-31] MEDS: Acetaminophen 325 MG TAB PO PRN (12:24)
[2018-01-31] MEDS ORDERED: Loratadine 10 MG TAB PO SCH (13:45)
[2018-01-31] MEDS: Atorvastatin Calcium 10 MG TAB PO SCH (20:19)
[2018-02-01 07:15] LABS: Hemoglobin 11.3 g/dL (12.0-16.0); Platelet Count 452 thou/uL (130-400)
[2018-02-01] MEDS: Docusate 100 MG CAP PO SCH ×2 (08:46→20:44)
[2018-02-01] MEDS: Aspirin 81 mg Enteric Coated Tablet PO SCH (08:46)
[2018-02-01] MEDS: Gabapentin 300 MG CAP PO SCH ×2 (08:47→20:43)
[2018-02-01] MEDS: Multivit, Therapeutic 1 TAB PO SCH (08:47)
[2018-02-01] MEDS: Furosemide 20 MG TAB PO SCH (08:47)
[2018-02-01] MEDS: Cefdinir 300 MG CAP PO SCH ×2 (08:47→20:43)
[2018-02-01] MEDS: Loratadine 10 MG TAB PO SCH (08:47)
[2018-02-01] MEDS: Losartan 25 MG TAB PO SCH (08:48)
[2018-02-01] MEDS: Folic Acid 1 MG TAB PO SCH (08:48)
[2018-02-01] MEDS: Amiodarone 200 MG TAB PO SCH (08:48)
[2018-02-01] MEDS: Senokot 8.6 MG TAB PO SCH (08:48)
[2018-02-01] MEDS: Apixaban 5 MG TAB PO SCH ×2 (08:49→20:44)
[2018-02-01] MEDS: Fluticasone Propionate Nasal Spray 16 gm Bottle NASAL SCH (08:51)
[2018-02-01] MEDS: Acetaminophen 325 MG TAB PO PRN (13:04)
--- NOTE | 2018-02-01 13:58 | PRG ---
DATE OF SERVICE: 01/31/2018 SUBJECTIVE: The patient says that she is doing good other than having a little slight cough and some nasal congestion. She is not running any fever. The patient has continued to work with [employer] and making progress. She has asked for a pass to attend a grandson's wedding tomorrow evening and will have plenty assistance to take and assist her. The patient will be given a pass. OBJECTIVE: The patient is sitting in her bedside chair. She is alert, appears in no distress. Her vital signs show a temperature of 97.9, pulse 72, respirations 21, O2 sat 97% on room air. Her blood pressure is 157/91. Lungs are clear. Heart; regular rate. Extremities, no edema. ASSESSMENT: 1. Generalized weakness and deconditioning; A. Secondary to recent hospitalization for urinary tract infection. B. Improved as of 01/31/2018. 2. Hospitalized at [facility] from 01/22/2018 to 01/28/2018 for; A. Urinary tract infection from Escherichia coli with sepsis-like presentation. B. Urinary retention, which is resolved. 3. Urinary tract infection/pyelonephritis; A. Required hospitalization at [facility] from 01/22/2018 to 01/28/2018. B. Presented with temperature of 102.7 and leukocytosis with left shift. C. Urine culture grew Escherichia coli with organism sensitive to ceftriaxone. Blood cultures no gr owth. D. Completed 7-day course of ceftriaxone and presently on oral antibiotics for another week. E. Remains asymptomatic and on oral antibiotics as of 01/31/2018. 4. Hypertension, controlled. 5. Paroxysmal atrial fibrillation; A. On amiodarone and anticoagulant. B. Rate controlled. 6. History of left pontine stroke on 05/2016. A. Presented with right facial drooping, mild dysphagia and right hemiplegia. B. Deficits have all resolved. 7. History of diastolic dysfunction; A. No evidence of acute congestive heart failure as of 01/31/2018. 8. Chronic low back pain secondary to spondylosis of the lumbar spine. 9. Fibromyalgia. 10. Migraine headaches. PLAN: The patient is making gradual progress. We will continue to working with PT and OT. We will give patient Flonase to use for the nasal congestion. The patient will be given a pass for tomorrow evening to attend her grandson's wedding, which will be here in town and she will have plenty of help to assist her.
[2018-02-01] MEDS: Atorvastatin Calcium 10 MG TAB PO SCH (20:44)
[2018-02-02] MEDS: Apixaban 5 MG TAB PO SCH ×2 (09:45→20:34)
[2018-02-02] MEDS: Loratadine 10 MG TAB PO SCH (09:46)
[2018-02-02] MEDS: Multivit, Therapeutic 1 TAB PO SCH (09:46)
[2018-02-02] MEDS: Docusate 100 MG CAP PO SCH ×2 (09:46→20:34)
[2018-02-02] MEDS: Cefdinir 300 MG CAP PO SCH ×2 (09:46→20:34)
[2018-02-02] MEDS: Amiodarone 200 MG TAB PO SCH (09:46)
[2018-02-02] MEDS: Folic Acid 1 MG TAB PO SCH (09:46)
[2018-02-02] MEDS: Losartan 25 MG TAB PO SCH (09:46)
[2018-02-02] MEDS: Aspirin 81 mg Enteric Coated Tablet PO SCH (09:46)
[2018-02-02] MEDS: Gabapentin 300 MG CAP PO SCH ×2 (09:47→20:34)
[2018-02-02] MEDS: Fluticasone Propionate Nasal Spray 16 gm Bottle NASAL SCH (09:47)
[2018-02-02] MEDS: Senokot 8.6 MG TAB PO SCH (09:47)
[2018-02-02] MEDS: Furosemide 20 MG TAB PO SCH (09:47)
[2018-02-02] MEDS: Acetaminophen 325 MG TAB PO PRN (18:06)
[2018-02-02] MEDS: Atorvastatin Calcium 10 MG TAB PO SCH (20:34)
[2018-02-03 05:51] LABS: Hemoglobin 11.4 g/dL (12.0-16.0); Platelet Count 416 thou/uL (130-400)
[2018-02-03] MEDS: Fluticasone Propionate Nasal Spray 16 gm Bottle NASAL SCH (08:33)
[2018-02-03] MEDS: Senokot 8.6 MG TAB PO SCH (08:34)
[2018-02-03] MEDS: Losartan 25 MG TAB PO SCH (08:34)
[2018-02-03] MEDS: Folic Acid 1 MG TAB PO SCH (08:34)
[2018-02-03] MEDS: Apixaban 5 MG TAB PO SCH ×2 (08:34→20:33)
[2018-02-03] MEDS: Docusate 100 MG CAP PO SCH ×2 (08:34→20:35)
[2018-02-03] MEDS: Multivit, Therapeutic 1 TAB PO SCH (08:34)
[2018-02-03] MEDS: Gabapentin 300 MG CAP PO SCH ×2 (08:34→20:33)
[2018-02-03] MEDS: Cefdinir 300 MG CAP PO SCH ×2 (08:34→20:37)
[2018-02-03] MEDS: Aspirin 81 mg Enteric Coated Tablet PO SCH (08:35)
[2018-02-03] MEDS: Amiodarone 200 MG TAB PO SCH (08:35)
[2018-02-03] MEDS: Loratadine 10 MG TAB PO SCH (08:35)
[2018-02-03] MEDS: Furosemide 20 MG TAB PO SCH (08:35)
--- NOTE | 2018-02-03 08:57 | PRG ---
DATE OF SERVICE: 02/01/2018 SUBJECTIVE: The patient states she is doing fine today. She has no complaints. Her breathing is go od. She has had no chest pain. No headache. OBJECTIVE: GENERAL: The patient is sitting up in bedside, cheers, she is alert, talkative, appears in no distre ss. VITAL SIGNS: Her temperature 97.3, pulse 63, respirations 18, O2 94% on room air, blood pressure 141 /66. LUNGS: Clear. HEART: Regular rate. EXTREMITIES: No edema. LABORATORY DATA: H and H 11.3 and 35.2. Creatinine 0.75, GFR 73. ASSESSMENT: 1. Generalized weakness and deconditioning; A. Secondary to recent hospitalization for urinary tract infection. B. Improved as of 02/01/2018. 2. Hospitalized at [facility] from 01/22/2018 to 01/28/2018 for; A. Urinary tract infection from Escherichia coli with sepsis-like presentation. B. Urinary retention, which is resolved. 3. Urinary tract infection/pyelonephritis; A. Required hospitalization at [facility] from 01/22/2018 to 01/28/2018. B. Presented with temperature of 102.7 and leukocytosis with left shift. C. Urine culture grew Escherichia coli with organism sensitive to ceftriaxone. Blood cultures no gr owth. D. Completed 7-day course of ceftriaxone and presently on oral antibiotics for another week. E. Remains asymptomatic and on oral antibiotics as of 02/01/2018. 4. Hypertension, controlled. 5. Paroxysmal atrial fibrillation; A. On amiodarone and anticoagulant. B. Rate controlled. 6. History of left pontine stroke on 05/2016. A. Presented with right facial drooping, mild dysphagia and right hemiplegia. B. Deficits have all resolved. 7. History of diastolic dysfunction; A. No evidence of acute congestive heart failure as of 02/01/2018. 8. Chronic low back pain secondary to spondylosis of the lumbar spine. 9. Fibromyalgia. 10. Migraine headaches. PLAN: Continue present care. The patient will go for short pass to attend her grandson's wedding th is evening. We have plenty of systems. The patient will continue the cefdinir until 02/04/2018 and this will have complete a 14-day course of antibiotics for the upper urinary tract infection. Contin ue OT and PT.
--- NOTE | 2018-02-03 08:58 | PRG ---
DATE OF SERVICE: 02/03/2018 SUBJECTIVE: The patient said she is feeling good this morning, just tired. She did make it to her judy pressley's wedding on the evening of 02/01/2018 and only stayed a little while. She said it did tire her out, but it went well. She is having no shortness of breath, no chest pain. OBJECTIVE: The patient is sitting up in her bedside chair. She is alert, appears comfortable, in no distress. Her temperature is 97.6, pulse 63, respirations 21, O2 sat 97%, blood pressure 150/69. H er lungs are clear. Heart, regular rate. Extremities: no edema. ASSESSMENT: 1. Generalized weakness and deconditioning; A. Secondary to recent hospitalization for urinary tract infection. B. Improved as of 02/03/2018. 2. Hospitalized at [facility] from 01/22/2018 to 01/28/2018 for; A. Urinary tract infection from Escherichia coli with sepsis-like presentation. B. Urinary retention, which is resolved. 3. Urinary tract infection/pyelonephritis; A. Required hospitalization at [facility] from 01/22/2018 to 01/28/2018. B. Presented with temperature of 102.7 and leukocytosis with left shift. C. Urine culture grew Escherichia coli with organism sensitive to ceftriaxone. Blood cultures no gr owth. D. Completed 7-day course of ceftriaxone and presently on oral antibiotics for another week. E. Remains asymptomatic and on oral antibiotics as of 02/03/2018. 4. Hypertension, controlled. 5. Paroxysmal atrial fibrillation; A. On amiodarone and anticoagulant. B. Rate controlled. 6. History of left pontine stroke on 05/2016. A. Presented with right facial drooping, mild dysphagia and right hemiplegia. B. Deficits have all resolved. 7. History of diastolic dysfunction; A. No evidence of acute congestive heart failure as of 02/03/2018. 8. Chronic low back pain secondary to spondylosis of the lumbar spine. 9. Fibromyalgia. 10. Migraine headaches. PLAN: Continue PT/OT. Will continue the Cefdinir until 02/04/2018, that will then have completed a 14 day cycle of the antibiotics for the urinary tract infection. The patient will benefit by continu al physical therapy.
[2018-02-03] MEDS: Atorvastatin Calcium 10 MG TAB PO SCH (20:35)
[2018-02-04] MEDS: Aspirin 81 mg Enteric Coated Tablet PO SCH (11:01)
[2018-02-04] MEDS: Apixaban 5 MG TAB PO SCH ×2 (11:01→20:58)
[2018-02-04] MEDS: Amiodarone 200 MG TAB PO SCH (11:01)
[2018-02-04] MEDS: Cefdinir 300 MG CAP PO SCH ×2 (11:02→20:59)
[2018-02-04] MEDS: Docusate 100 MG CAP PO SCH ×2 (11:02→20:59)
[2018-02-04] MEDS: Fluticasone Propionate Nasal Spray 16 gm Bottle NASAL SCH (11:02)
[2018-02-04] MEDS: Loratadine 10 MG TAB PO SCH (11:04)
[2018-02-04] MEDS: Losartan 25 MG TAB PO SCH (11:04)
[2018-02-04] MEDS: Folic Acid 1 MG TAB PO SCH (11:04)
[2018-02-04] MEDS: Furosemide 20 MG TAB PO SCH (11:04)
[2018-02-04] MEDS: Gabapentin 300 MG CAP PO SCH ×2 (11:04→20:59)
[2018-02-04] MEDS: Multivit, Therapeutic 1 TAB PO SCH (11:05)
[2018-02-04] MEDS: Senokot 8.6 MG TAB PO SCH (11:05)
[2018-02-04] MEDS: Atorvastatin Calcium 10 MG TAB PO SCH (20:59)
[2018-02-04] MEDS: HYDROcodone/Acetaminophen 5/325 mg Tablet PO PRN (23:04)
[2018-02-05 05:42] LABS: Hemoglobin 10.9 g/dL (12.0-16.0); Platelet Count 389 thou/uL (130-400)
[2018-02-05] MEDS: Aspirin 81 mg Enteric Coated Tablet PO SCH (09:09)
[2018-02-05] MEDS: Gabapentin 300 MG CAP PO SCH ×2 (09:10→22:01)
[2018-02-05] MEDS: Loratadine 10 MG TAB PO SCH (09:10)
[2018-02-05] MEDS: Amiodarone 200 MG TAB PO SCH (09:10)
[2018-02-05] MEDS: Multivit, Therapeutic 1 TAB PO SCH (09:10)
[2018-02-05] MEDS: Senokot 8.6 MG TAB PO SCH (09:10)
[2018-02-05] MEDS: Losartan 25 MG TAB PO SCH (09:10)
[2018-02-05] MEDS: Apixaban 5 MG TAB PO SCH ×2 (09:10→22:03)
[2018-02-05] MEDS: Furosemide 20 MG TAB PO SCH (09:10)
[2018-02-05] MEDS: Docusate 100 MG CAP PO SCH ×2 (09:10→22:01)
[2018-02-05] MEDS: Folic Acid 1 MG TAB PO SCH (09:10)
[2018-02-05] MEDS: Fluticasone Propionate Nasal Spray 16 gm Bottle NASAL SCH (09:11)
[2018-02-05] MEDS: Atorvastatin Calcium 10 MG TAB PO SCH (22:00)
[2018-02-06] MEDS: Fluticasone Propionate Nasal Spray 16 gm Bottle NASAL SCH (09:16)
[2018-02-06] MEDS: Gabapentin 300 MG CAP PO SCH ×2 (09:17→20:50)
[2018-02-06] MEDS: Losartan 25 MG TAB PO SCH (09:17)
[2018-02-06] MEDS: Multivit, Therapeutic 1 TAB PO SCH (09:18)
[2018-02-06] MEDS: Senokot 8.6 MG TAB PO SCH (09:18)
[2018-02-06] MEDS: Folic Acid 1 MG TAB PO SCH (09:18)
[2018-02-06] MEDS: Amiodarone 200 MG TAB PO SCH (09:18)
[2018-02-06] MEDS: Aspirin 81 mg Enteric Coated Tablet PO SCH (09:18)
[2018-02-06] MEDS: Furosemide 20 MG TAB PO SCH (09:18)
[2018-02-06] MEDS: Apixaban 5 MG TAB PO SCH ×2 (09:18→20:50)
[2018-02-06] MEDS: Loratadine 10 MG TAB PO SCH (09:18)
[2018-02-06] MEDS: Docusate 100 MG CAP PO SCH ×2 (09:18→20:50)
--- NOTE | 2018-02-06 14:09 | PRG ---
DATE OF SERVICE: 02/05/2018 SUBJECTIVE: The patient said she is doing good this morning. Last night she had one of her headache s and had to take a hydrocodone. This morning she is feeling good. This is the first headache she h as had in a number of days. She is making good progress on her physical therapy. She has already be en out walking this morning. She is now preparing for breakfast. OBJECTIVE: The patient is just sitting in her bedside chair. She is alert, talkative, appears comfo rtable and in no distress. Her temperature is 98, pulse 56, respirations 16, O2 sat 94% on room air, blood pressure 118/58. Her lungs are clear. Heart, regular rate. Extremities; no edema. H&H 10.9 and 33.6, platelet count 389,000. Creatinine 0.69, GFR 80. ASSESSMENT: 1. Generalized weakness and deconditioning; A. Secondary to recent hospitalization for urinary tract infection. B. Improved as of 02/05/2018. 2. Hospitalized at [facility] from 01/22/2018 to 01/28/2018 for; A. Urinary tract infection from Escherichia coli with sepsis-like presentation. B. Urinary retention, which is resolved. 3. Urinary tract infection/pyelonephritis; A. Required hospitalization at [facility] from 01/22/2018 to 01/28/2018. B. Presented with temperature of 102.7 and leukocytosis with left shift. C. Urine culture grew Escherichia coli with organism sensitive to ceftriaxone. Blood cultures no gr owth. D. Completed 7-day course of ceftriaxone and presently on oral antibiotics for another week. E. Remains asymptomatic and has completed the additional 7 day course of oral antibiotics as of 01/25. 4. Hypertension, controlled. 5. Paroxysmal atrial fibrillation; A. On amiodarone and anticoagulant. B. Rate controlled. 6. History of left pontine stroke on 05/2016. A. Presented with right facial drooping, mild dysphagia and right hemiplegia. B. Deficits have all resolved. 7. History of diastolic dysfunction; A. No evidence of acute congestive heart failure as of 02/05/2018. 8. Chronic low back pain secondary to spondylosis of the lumbar spine. 9. Fibromyalgia. 10. Migraine headaches. PLAN: Will discontinue the Cefdinir. The patient completed a 7 day course of the IV ceftriaxone and now has completed the additional 7 days of oral Cefdinir. She remains asymptomatic. Continue PT an d OT.
--- NOTE | 2018-02-06 14:10 | PRG ---
DATE OF SERVICE: 02/06/2018 SUBJECTIVE: The patient said she is feeling good this morning. She is already up walking in the [facility] to the physical therapy room, she walks with a walker and therapist and standby assistance. OBJECTIVE: The patient is alert and appears very comfortable, is doing well with her walking with he r walker. Her temperature is 97.3, pulse 68, respirations 18, O2 sat 96% on room air, blood pressure 131/60. Her lungs were clear. Heart, regular rate. Extremities, no edema. ASSESSMENT: 1. Generalized weakness and deconditioning; A. Secondary to recent hospitalization for urinary tract infection. B. Improved as of 02/06/2018. 2. Hospitalized at [facility] from 01/22/2018 to 01/28/2018 for; A. Urinary tract infection from Escherichia coli with sepsis-like presentation. B. Urinary retention, which is resolved. 3. Urinary tract infection/pyelonephritis; A. Required hospitalization at [facility] from 01/22/2018 to 01/28/2018. B. Presented with temperature of 102.7 and leukocytosis with left shift. C. Urine culture grew Escherichia coli with organism sensitive to ceftriaxone. Blood cultures no gr owth. D. Remains asymptomatic. She has completed a 14-day course of antibiotics. E. Remains asymptomatic and on oral antibiotics as of 02/03/2018. 4. Hypertension, controlled. 5. Paroxysmal atrial fibrillation; A. On amiodarone and anticoagulant. B. Rate controlled. 6. History of left pontine stroke on 05/2016. A. Presented with right facial drooping, mild dysphagia and right hemiplegia. B. Deficits have all resolved. 7. History of diastolic dysfunction; A. No evidence of acute congestive heart failure as of 02/06/2018. 8. Chronic low back pain secondary to spondylosis of the lumbar spine. 9. Fibromyalgia. 10. Migraine headaches. PLAN: Continue PT and OT.
[2018-02-07 05:29] LABS: Hemoglobin 11.8 g/dL (12.0-16.0); Platelet Count 407 thou/uL (130-400)
[2018-02-07] MEDS: Loratadine 10 MG TAB PO SCH (09:34)
[2018-02-07] MEDS: Fluticasone Propionate Nasal Spray 16 gm Bottle NASAL SCH (09:34)
[2018-02-07] MEDS: Furosemide 20 MG TAB PO SCH (09:34)
[2018-02-07] MEDS: Amiodarone 200 MG TAB PO SCH (09:34)
[2018-02-07] MEDS: Docusate 100 MG CAP PO SCH ×2 (09:34→20:07)
[2018-02-07] MEDS: Apixaban 5 MG TAB PO SCH ×2 (09:35→20:08)
[2018-02-07] MEDS: Gabapentin 300 MG CAP PO SCH ×2 (09:35→20:07)
[2018-02-07] MEDS: Folic Acid 1 MG TAB PO SCH (09:36)
[2018-02-07] MEDS: Senokot 8.6 MG TAB PO SCH (09:36)
[2018-02-07] MEDS: Multivit, Therapeutic 1 TAB PO SCH (09:36)
[2018-02-07] MEDS: Losartan 25 MG TAB PO SCH (09:36)
[2018-02-07] MEDS: Aspirin 81 mg Enteric Coated Tablet PO SCH (09:36)
[2018-02-07] MEDS: Atorvastatin Calcium 10 MG TAB PO SCH (20:07)
[2018-02-08] MEDS: Losartan 25 MG TAB PO SCH (08:37)
[2018-02-08] MEDS: Docusate 100 MG CAP PO SCH ×2 (08:37→22:23)
[2018-02-08] MEDS: Gabapentin 300 MG CAP PO SCH ×2 (08:37→22:23)
[2018-02-08] MEDS: Apixaban 5 MG TAB PO SCH ×2 (08:37→22:24)
[2018-02-08] MEDS: Folic Acid 1 MG TAB PO SCH (08:38)
[2018-02-08] MEDS: Furosemide 20 MG TAB PO SCH (08:38)
[2018-02-08] MEDS: Aspirin 81 mg Enteric Coated Tablet PO SCH (08:38)
[2018-02-08] MEDS: Multivit, Therapeutic 1 TAB PO SCH (08:38)
[2018-02-08] MEDS: Loratadine 10 MG TAB PO SCH (08:38)
[2018-02-08] MEDS: Amiodarone 200 MG TAB PO SCH (08:38)
[2018-02-08] MEDS: Fluticasone Propionate Nasal Spray 16 gm Bottle NASAL SCH (08:38)
[2018-02-08] MEDS: Senokot 8.6 MG TAB PO SCH (08:38)
--- NOTE | 2018-02-08 17:13 | PRG ---
DATE OF SERVICE: 02/08/2018 SUBJECTIVE: The patient said she is doing well. She is not having any headache today. She has been doing well with her physical therapy. OBJECTIVE: GENERAL APPEARANCE: The patient is sitting up in a bedside chair, visiting with her . She is alert, appears very comfortable and in no distress. VITAL SIGNS: Her temperature is 97, pulse 59, respirations 18, O2 sat 96%, blood pressure 115/54. LUNGS: Clear. HEART: Regular rate. EXTREMITIES: No edema. ASSESSMENT: 1. Generalized weakness and deconditioning; A. Secondary to recent hospitalization for urinary tract infection. B. Improved as of 02/08/2018. 2. Hospitalized at [facility] from 01/22/2018 to 01/28/2018 for; A. Urinary tract infection from Escherichia coli with sepsis-like presentation. B. Urinary retention, which is resolved. 3. Urinary tract infection/pyelonephritis; A. Required hospitalization at [facility] from 01/22/2018 to 01/28/2018. B. Presented with temperature of 102.7 and leukocytosis with left shift. C. Urine culture grew Escherichia coli with organism sensitive to ceftriaxone. Blood cultures no gr owth. D. Remains asymptomatic. She has completed a 14-day course of antibiotics. 4. Hypertension, controlled. 5. Paroxysmal atrial fibrillation; A. On amiodarone and anticoagulant. B. Rate controlled. 6. History of left pontine stroke on 05/2016. A. Presented with right facial drooping, mild dysphagia and right hemiplegia. B. Deficits have all resolved. 7. History of diastolic dysfunction; A. No evidence of acute congestive heart failure as of 02/08/2018. 8. Chronic low back pain secondary to spondylosis of the lumbar spine. 9. Fibromyalgia. 10. Migraine headaches. PLAN: Continue physical therapy. We will give patient of these further few days physical therapy. Anticipate her discharge or Saturday, which will be 02/13/2018 or 02/14/2018.
--- NOTE | 2018-02-08 17:15 | PRG ---
DATE OF SERVICE: 02/07/2018 SUBJECTIVE: The patient says she is doing better. She is walking better. Her strength is improving . OBJECTIVE: The patient has already been for walk and she is now sitting back in her chair in her adrien[facility] m. She is alert, talkative, appears very comfortable, in no distress. Vital signs show a temperatur e of 97.9, pulse 58, respirations 18, O2 sat 97% on room air, blood pressure 144/64. Lungs are clear . Heart, regular rate. Extremities, no edema. ASSESSMENT: 1. Generalized weakness and deconditioning; A. Secondary to recent hospitalization for urinary tract infection. B. Improved as of 02/07/2018. 2. Hospitalized at [facility] from 01/22/2018 to 01/28/2018 for; A. Urinary tract infection from Escherichia coli with sepsis-like presentation. B. Urinary retention, which is resolved. 3. Urinary tract infection/pyelonephritis; A. Required hospitalization at [facility] from 01/22/2018 to 01/28/2018. B. Presented with temperature of 102.7 and leukocytosis with left shift. C. Urine culture grew Escherichia coli with organism sensitive to ceftriaxone. Blood cultures no gr owth. D. Remains asymptomatic. She has completed a 14-day course of antibiotics. 4. Hypertension, controlled. 5. Paroxysmal atrial fibrillation; A. On amiodarone and anticoagulant. B. Rate controlled. 6. History of left pontine stroke on 05/2016. A. Presented with right facial drooping, mild dysphagia and right hemiplegia. B. Deficits have all resolved. 7. History of diastolic dysfunction; A. No evidence of acute congestive heart failure as of 02/07/2018. 8. Chronic low back pain secondary to spondylosis of the lumbar spine. 9. Fibromyalgia. 10. Migraine headaches. PLAN: The patient is doing very well today. We will continue present care. Continue PT, OT. Once she does go home, we will arrange for outpatient PT which should be her preference and have [facility].
[2018-02-08] MEDS: Atorvastatin Calcium 10 MG TAB PO SCH (22:23)
[2018-02-08] MEDS: HYDROcodone/Acetaminophen 5/325 mg Tablet PO PRN (23:09)
[2018-02-09] MEDS: Gabapentin 300 MG CAP PO SCH ×2 (08:30→20:10)
[2018-02-09] MEDS: Senokot 8.6 MG TAB PO SCH (08:30)
[2018-02-09] MEDS: Multivit, Therapeutic 1 TAB PO SCH (08:30)
[2018-02-09] MEDS: Furosemide 20 MG TAB PO SCH (08:31)
[2018-02-09] MEDS: Aspirin 81 mg Enteric Coated Tablet PO SCH (08:31)
[2018-02-09] MEDS: Docusate 100 MG CAP PO SCH ×2 (08:31→20:10)
[2018-02-09] MEDS: Folic Acid 1 MG TAB PO SCH (08:33)
[2018-02-09] MEDS: Losartan 25 MG TAB PO SCH (08:33)
[2018-02-09] MEDS: Amiodarone 200 MG TAB PO SCH (08:33)
[2018-02-09] MEDS: Apixaban 5 MG TAB PO SCH ×2 (08:34→20:11)
[2018-02-09] MEDS: Loratadine 10 MG TAB PO SCH (08:34)
[2018-02-09] MEDS: Fluticasone Propionate Nasal Spray 16 gm Bottle NASAL SCH (08:35)
[2018-02-09] MEDS: Atorvastatin Calcium 10 MG TAB PO SCH (20:10)
[2018-02-10] MEDS: Amiodarone 200 MG TAB PO SCH (09:25)
[2018-02-10] MEDS: Apixaban 5 MG TAB PO SCH ×2 (09:26→20:36)
[2018-02-10] MEDS: Aspirin 81 mg Enteric Coated Tablet PO SCH (09:27)
[2018-02-10] MEDS: Furosemide 20 MG TAB PO SCH (09:28)
[2018-02-10] MEDS: Fluticasone Propionate Nasal Spray 16 gm Bottle NASAL SCH (09:28)
[2018-02-10] MEDS: Folic Acid 1 MG TAB PO SCH (09:28)
[2018-02-10] MEDS: Gabapentin 300 MG CAP PO SCH ×2 (09:28→20:36)
[2018-02-10] MEDS: Docusate 100 MG CAP PO SCH ×2 (09:28→20:36)
[2018-02-10] MEDS: Loratadine 10 MG TAB PO SCH (09:29)
[2018-02-10] MEDS: Multivit, Therapeutic 1 TAB PO SCH (09:29)
[2018-02-10] MEDS: Senokot 8.6 MG TAB PO SCH (09:29)
[2018-02-10] MEDS: Losartan 25 MG TAB PO SCH (09:29)
--- NOTE | 2018-02-10 12:54 | PRG ---
DATE OF SERVICE: 02/10/2018 SUBJECTIVE: The patient says she is feeling fine this morning. She has already been up and walking around with physical therapy and been on the NuStep for 25 minutes. She is feeling better. She has no headache. She is making arrangement to go home at the end of this week. This will give her these additional few days of therapy. OBJECTIVE: GENERAL: The patient is sitting up in a bedside chair. She is alert, talkative, appears very comfor table, in no distress. VITAL SIGNS: Temperature 96.2, pulse 63, respirations 18, O2 sat 97% on room air, blood pressure 118 /58. LUNGS: Clear. HEART: Regular rate. EXTREMITIES: No edema. ASSESSMENT: 1. Generalized weakness and deconditioning; A. Secondary to recent hospitalization for urinary tract infection. B. Continue to improve as of 02/10/2018. 2. Hospitalized at [facility] from 01/22/2018 to 01/28/2018 for; A. Urinary tract infection from Escherichia coli with sepsis-like presentation. B. Urinary retention, which is resolved. 3. Urinary tract infection/pyelonephritis; A. Required hospitalization at [facility] from 01/22/2018 to 01/28/2018. B. Presented with temperature of 102.7 and leukocytosis with left shift. C. Urine culture grew Escherichia coli with organism sensitive to ceftriaxone. Blood cultures no gr owth. D. Remains asymptomatic. She has completed a 14-day course of antibiotics. 4. Hypertension, controlled. 5. Paroxysmal atrial fibrillation; A. On amiodarone and anticoagulant. B. Rate controlled. 6. History of left pontine stroke on 05/2016. A. Presented with right facial drooping, mild dysphagia and right hemiplegia. B. Deficits have all resolved. 7. History of diastolic dysfunction; A. No evidence of acute congestive heart failure as of 02/10/2018. 8. Chronic low back pain secondary to spondylosis of the lumbar spine. A. Controlled as of 02/10/2018. 9. Fibromyalgia. 10. Migraine headaches. PLAN: The patient continues to make progress. We will continue physical therapy through this week. Anticipate discharge on 02/14/2018.
[2018-02-10] MEDS: Acetaminophen 325 MG TAB PO PRN (15:56)
[2018-02-10] MEDS: HYDROcodone/Acetaminophen 5/325 mg Tablet PO PRN (20:37)
[2018-02-10] MEDS: Atorvastatin Calcium 10 MG TAB PO SCH (20:38)
[2018-02-11] MEDS: Amiodarone 200 MG TAB PO SCH (08:07)
[2018-02-11] MEDS: Apixaban 5 MG TAB PO SCH ×2 (08:07→21:17)
[2018-02-11] MEDS: Folic Acid 1 MG TAB PO SCH (08:08)
[2018-02-11] MEDS: Fluticasone Propionate Nasal Spray 16 gm Bottle NASAL SCH (08:08)
[2018-02-11] MEDS: Docusate 100 MG CAP PO SCH ×2 (08:08→21:17)
[2018-02-11] MEDS: Aspirin 81 mg Enteric Coated Tablet PO SCH (08:08)
[2018-02-11] MEDS: Loratadine 10 MG TAB PO SCH (08:08)
[2018-02-11] MEDS: Gabapentin 300 MG CAP PO SCH ×2 (08:08→21:17)
[2018-02-11] MEDS: Furosemide 20 MG TAB PO SCH (08:08)
[2018-02-11] MEDS: Senokot 8.6 MG TAB PO SCH (08:09)
[2018-02-11] MEDS: Multivit, Therapeutic 1 TAB PO SCH (08:09)
[2018-02-11] MEDS: Losartan 25 MG TAB PO SCH (08:09)
[2018-02-11] MEDS: Atorvastatin Calcium 10 MG TAB PO SCH (21:19)
[2018-02-11] MEDS: HYDROcodone/Acetaminophen 5/325 mg Tablet PO PRN (23:58)
--- NOTE | 2018-02-12 08:40 | PRG ---
DATE OF SERVICE: 02/12/2018 SUBJECTIVE: The patient said she has been doing well, but early this morning she has had some pain i n her left mid upper back. She said she has taken her pain medicine and the pain is better. She has been up already and taking a walk with therapist. She is making arrangements to go home tomorrow. She will have plenty of help in the home with her. OBJECTIVE: The patient is sitting up in a chair, is alert, appears in no distress. Lungs are clear. Heart, regular rate. Extremities, no edema. Back; there is no rash, there is no redness, no area of tenderness. ASSESSMENT: 1. Generalized weakness and deconditioning; A. Secondary to recent hospitalization for urinary tract infection. B. Continue to improve as of 02/12/2018. 2. Hospitalized at [facility] from 01/22/2018 to 01/28/2018 for; A. Urinary tract infection from Escherichia coli with sepsis-like presentation. B. Urinary retention, which is resolved. 3. Urinary tract infection/pyelonephritis; A. Required hospitalization at [facility] from 01/22/2018 to 01/28/2018. B. Presented with temperature of 102.7 and leukocytosis with left shift. C. Urine culture grew Escherichia coli with organism sensitive to ceftriaxone. Blood cultures no gr owth. D. Remains asymptomatic. She has completed a 14-day course of antibiotics. 4. Hypertension, controlled. 5. Paroxysmal atrial fibrillation; A. On amiodarone and anticoagulant. B. Rate controlled. 6. History of left pontine stroke on 05/2016. A. Presented with right facial drooping, mild dysphagia and right hemiplegia. B. Deficits have all resolved. 7. History of diastolic dysfunction; A. No evidence of acute congestive heart failure as of 02/12/2018. 8. Chronic low back pain secondary to spondylosis of the lumbar spine. A. Controlled as of 02/12/2018. 9. Fibromyalgia. 10. Migraine headaches. PLAN: Continue PT, OT. We will try a Gaymar pump for moist heat to the back and see if that will he lp her some. Still planning on a probable discharge tomorrow.
--- NOTE | 2018-02-12 08:41 | PRG ---
DATE OF SERVICE: 02/11/2018 SUBJECTIVE: The patient is getting stronger. She is doing good with physical therapy. This morning she is working out on the NuStep and doing very well on this. She is making preparation for dischar ge to her family where she will have help at home on 02/13/2018. OBJECTIVE: The patient is sitting up on the NuStep working her hands and legs, looks very comfortabl e. Her vital signs show a temperature 97, pulse 55, respirations 18, O2 sat 96% on room air, blood p ressure 140/64. Her lungs are clear. Heart, regular rate. Extremities, no edema. ASSESSMENT: 1. Generalized weakness and deconditioning; A. Secondary to recent hospitalization for urinary tract infection. B. Continue to improve as of 02/11/2018. 2. Hospitalized at [facility] from 01/22/2018 to 01/28/2018 for; A. Urinary tract infection from Escherichia coli with sepsis-like presentation. B. Urinary retention, which is resolved. 3. Urinary tract infection/pyelonephritis; A. Required hospitalization at [facility] from 01/22/2018 to 01/28/2018. B. Presented with temperature of 102.7 and leukocytosis with left shift. C. Urine culture grew Escherichia coli with organism sensitive to ceftriaxone. Blood cultures no gr owth. D. Remains asymptomatic. She has completed a 14-day course of antibiotics. 4. Hypertension, controlled. 5. Paroxysmal atrial fibrillation; A. On amiodarone and anticoagulant. B. Rate controlled. 6. History of left pontine stroke on 05/2016. A. Presented with right facial drooping, mild dysphagia and right hemiplegia. B. Deficits have all resolved. 7. History of diastolic dysfunction; A. No evidence of acute congestive heart failure as of 02/11/2018. 8. Chronic low back pain secondary to spondylosis of the lumbar spine. A. Controlled as of 02/11/2018. 9. Fibromyalgia. 10. Migraine headaches. PLAN: The patient is making excellent progress. We will continue PT and OT and plan on discharge on 02/13/2018.
[2018-02-12] MEDS: Losartan 25 MG TAB PO SCH (09:44)
[2018-02-12] MEDS: Docusate 100 MG CAP PO SCH ×2 (09:44→20:46)
[2018-02-12] MEDS: Gabapentin 300 MG CAP PO SCH ×2 (09:44→20:46)
[2018-02-12] MEDS: Senokot 8.6 MG TAB PO SCH (09:44)
[2018-02-12] MEDS: Aspirin 81 mg Enteric Coated Tablet PO SCH (09:44)
[2018-02-12] MEDS: Apixaban 5 MG TAB PO SCH ×2 (09:45→20:46)
[2018-02-12] MEDS: Folic Acid 1 MG TAB PO SCH (09:45)
[2018-02-12] MEDS: Fluticasone Propionate Nasal Spray 16 gm Bottle NASAL SCH (09:45)
[2018-02-12] MEDS: Furosemide 20 MG TAB PO SCH (09:45)
[2018-02-12] MEDS: Loratadine 10 MG TAB PO SCH (09:45)
[2018-02-12] MEDS: Multivit, Therapeutic 1 TAB PO SCH (09:45)
[2018-02-12] MEDS: Amiodarone 200 MG TAB PO SCH (09:45)
[2018-02-12] MEDS: Atorvastatin Calcium 10 MG TAB PO SCH (20:46)
[2018-02-13] MEDS: Docusate 100 MG CAP PO SCH (08:48)
[2018-02-13] MEDS: Amiodarone 200 MG TAB PO SCH (08:48)
[2018-02-13] MEDS: Aspirin 81 mg Enteric Coated Tablet PO SCH (08:48)
[2018-02-13] MEDS: Loratadine 10 MG TAB PO SCH (08:48)
[2018-02-13] MEDS: Furosemide 20 MG TAB PO SCH (08:48)
[2018-02-13] MEDS: Losartan 25 MG TAB PO SCH (08:48)
[2018-02-13] MEDS: Senokot 8.6 MG TAB PO SCH (08:48)
[2018-02-13] MEDS: Apixaban 5 MG TAB PO SCH (08:48)
[2018-02-13] MEDS: Gabapentin 300 MG CAP PO SCH (08:48)
[2018-02-13] MEDS: Folic Acid 1 MG TAB PO SCH (08:48)
[2018-02-13] MEDS: Multivit, Therapeutic 1 TAB PO SCH (08:48)
[2018-02-13] MEDS: Fluticasone Propionate Nasal Spray 16 gm Bottle NASAL SCH (08:50)
[2018-02-13 09:05] VITALS: BP 123/59; TEMP 96.8
--- NOTE | 2018-02-13 14:08 | DIS ---
FINAL DIAGNOSES: 1. Generalized weakness and deconditioning; A. Secondary to recent hospitalization for urinary tract infection. B. Excellent progress. Ambulating 150 feet with a rolling walker x2. Transferring with standby ass istance as of 02/13/2018. 2. Hospitalized at [facility] from 01/22/2018 to 01/28/2018 for; A. Urinary tract infection from Escherichia coli with sepsis-like presentation. B. Urinary retention, which is resolved. 3. Urinary tract infection/pyelonephritis; A. Required hospitalization at [facility] from 01/22/2018 to 01/28/2018. B. Presented with temperature of 102.7 and leukocytosis with left shift. C. Urine culture grew Escherichia coli with organism sensitive to ceftriaxone. Blood cultures no gr owth. D. Remains asymptomatic. She has completed a 14-day course of antibiotics. 4. Hypertension, controlled. 5. Paroxysmal atrial fibrillation; A. On amiodarone and anticoagulant. B. Rate controlled. 6. History of left pontine stroke on 05/2016. A. Presented with right facial drooping, mild dysphagia and right hemiplegia. B. Deficits have all resolved. 7. History of diastolic dysfunction; A. No evidence of acute congestive heart failure as of 02/13/2018. 8. Chronic low back pain secondary to spondylosis of the lumbar spine. A. Controlled as of 02/12/2018. 9. Fibromyalgia. 10. Migraine headaches. SUMMARY: The patient is an 88-year-old white female who has a history of paroxysmal atrial fibrillat ion for which she is on anticoagulants and amiodarone. She has a history of hypertension. She had a stroke involving the left pontine region that left her with a very mild right-sided weakness. She l fozai at home with her and is able to ambulate with the use of a walker. She has a caregiver that stays with her in the day that assist her with her ADLs. The patient was hospitalized at [facility] from 01/22/2018 until 01/28/2018 for a urinary tract infection. She presented with a fever of 102.7, marked leukocytosis with a left shift. She was admitted with the diagnosis of urina ry tract infection. Her urine grew E. coli that was sensitive to the cephalosporins. Her blood cult ures had no growth. She was treated with IV ceftriaxone for a 7 day period and then it was recommend ed that she remain on oral antibiotics for an additional 7 days. She did undergo an ultrasound of th e kidneys that did not show any hydronephrosis or bladder distention. Her initial presentation was 1 with a sepsis-like picture, probably from an upper urinary tract infection/pyelonephritis. During h er hospitalization, she did have some urinary retention and temporarily required a Sbeastian catheter. S he was left very weak and deconditioned and consequently was transferred to [facility] for continued work with physical therapy and occupational therapy in an effort to improve he r general strength and functional capability prior to her eventual discharge home. HOSPITAL COURSE: The patient made very gradual excellent progress during her hospitalization. Initi ally she was able sit up in a chair and then required assistance with transfers and then was able to gradually began walking and the distance gradually improved. During the hospitalization, she made ex cellent progress and by the time of her discharge on 02/13/2018, she was walking up to 150 feet with a rolling walker and just standby assistance 2 times a day. She also was transferring with just jose angel dby assistance. She had no trouble with her blood pressure. She has problems with chronic headaches that occur intermittently that was treated with an occasional analgesic. She had aches and pains fr om her arthritis, particularly in her spondylosis in her back, but this was managed with just Tylenol and heat application. During her hospitalization, she completed initially the 7 days of IV ceftriax one at [facility], here at [facility] completed another 7 days of cefdinir for a tot al of a 14-day course of treatment for the upper urinary tract infections/pyelonephritis. She remain ed afebrile and remained free of any urinary symptoms and was voiding without any difficulty. By her condition improved such that it felt like she could now be managed back at her home where she resides with her . She has a caregiver that comes in and assists her with her ADLs. The patient will [facility] to continue to improve on h er functional capabilities and general conditioning and strength and gait. DISPOSITION: DIET: No added salt diet. ACTIVITIES: Ambulate the use of a walker. MEDICATIONS: Acetaminophen 325 mg 2 every 4 hours as needed, amiodarone 200 mg daily, Eliquis 2.5 mg b.i.d., aspirin 81 mg daily, atorvastatin 10 mg at bedtime, docusate sodium (Colace 100 mg b.i.d.), fluticasone (Flonase) 2 sprays in each nostrum daily as needed, folic acid 1 mg daily, furosemide 20 mg daily, gabapentin 600 mg b.i.d., hydrocodone/acetaminophen 5/325 one b.i.d. as needed, loratadine (Claritin) 10 mg daily as needed, losartan 50 mg daily, multivitamin daily, pantoprazole 40 mg daily, Senokot 1 daily. FOLLOW UP: Arrangements will be made for the patient to go to outpatient physical therapy for streng thening exercise, gait training, and conditioning. The patient will be seen in my office in 2 weeks unless there is interval problem. CODE STATUS: Full code.
== END 2018-02-13 10:31 | disposition home or self-care (01) | DRG 948 ==
LOC: MADMS 16:53
PROVIDERS: ADMIT Family Medicine; ATTEND Family Medicine
DX: R53.1 Weakness (principal); I69.351 Hemiplegia and hemiparesis following cerebral infarction affecting right dominant side; N12 Tubulo-interstitial nephritis, not specified as acute or chronic; I48.0 Paroxysmal atrial fibrillation; Z79.01 Long term (current) use of anticoagulants; I10 Essential (primary) hypertension; I48.2 Chronic atrial fibrillation; I69.392 Facial weakness following cerebral infarction; I69.321 Dysphasia following cerebral infarction; M47.897 Other spondylosis, lumbosacral region; M54.5 Low back pain; G89.29 Other chronic pain; M79.7 Fibromyalgia; G43.909 Migraine, unspecified, not intractable, without status migrainosus; B96.20 Unspecified Escherichia coli [E. coli] as the cause of diseases classified elsewhere
CPT/HCPCS: 36415; 80053; 82565; 85014; 85018; 85025; 85049; G8978-GP-CK; G8979-GP-CJ; G8987-GO-CK; G8988-GO-CI

== ENCOUNTER 2018-02-21 10:47 | Outpatient (CLI) | payer MEDICARE ==
[2018-02-21 11:27] LABS: Bilirubin Negative (Negative); Blood, Urine Moderate (Negative); Glucose, Urine (Dipstick) Negative (Negative); Leukocyte Moderate (Negative); Nitrite Negative (Negative); Protein, Urine (Dipstick) Negative (Neg-Trace); Specific Gravity, Urine 1.015 (1.005-1.030); Urobilinogen 0.2 mg/dL (0.2-1.0)
[2018-02-21 11:29] LABS: Clarity Hazy (Clear)
[2018-02-21 11:32] LABS: RBC/HPF 21-50 HPF (0-3); Squamous Epithelial 0-3 HPF (0-3); WBC/HPF 21-50 HPF (0-3)
[2018-02-21 11:33] LABS: Bacteria/HPF 2+ HPF (None Seen)
== END 2018-02-21 10:48 | disposition home or self-care (01) ==
LOC: MADLABBHPM 10:47
PROVIDERS: ATTEND Family Medicine
DX: N39.0 Urinary tract infection, site not specified (principal)
CPT/HCPCS: 81001; 87077; 87086; 87186

== ENCOUNTER 2018-04-19 12:14 | Emergency (ER) | payer MEDICARE ==
[2018-04-19] MEDS ORDERED: Ondansetron ODT 4 MG TAB ONE (12:49)
[2018-04-19 14:41] LABS: Bilirubin Negative (Negative); Blood, Urine Trace (Negative); Glucose, Urine (Dipstick) Negative (Negative); Leukocyte Moderate (Negative); Nitrite Positive (Negative); Protein, Urine (Dipstick) Negative (Neg-Trace); Urobilinogen 0.2 mg/dL (0.2-1.0); pH, Urine 5.5 (5.0-9.0)
[2018-04-19 14:42] LABS: Clarity Hazy (Clear)
[2018-04-19 14:50] LABS: RBC/HPF 0-3 HPF (0-3)
[2018-04-19 14:51] LABS: Bacteria/HPF 3+ HPF (None Seen); Squamous Epithelial 0-3 HPF (0-3)
== END 2018-04-19 15:40 | disposition home or self-care (01) ==
LOC: MADERS 12:14
DX: N39.0 Urinary tract infection, site not specified (principal); I48.91 Unspecified atrial fibrillation; E78.5 Hyperlipidemia, unspecified; Z79.899 Other long term (current) drug therapy; I11.0 Hypertensive heart disease with heart failure; I50.9 Heart failure, unspecified
CPT/HCPCS: 51701; 81003; 81015; 87077; 87086; 87186; 93005; A4353; Q0162

== ENCOUNTER 2018-09-19 10:19 | Emergency (ER) | payer MEDICARE ==
[2018-09-19 10:59] LABS: Bilirubin Negative (Negative); Blood, Urine Negative (Negative); Clarity Cloudy (Clear); Glucose, Urine (Dipstick) Negative (Negative); Leukocyte Moderate (Negative); Nitrite Negative (Negative); Protein, Urine (Dipstick) Negative (Neg-Trace); Specific Gravity, Urine 1.015 (1.005-1.030); Urobilinogen 0.2 mg/dL (0.2-1.0)
[2018-09-19 11:00] LABS: Bacteria/HPF 1+ HPF (None Seen); Hyaline Casts/LPF 0-3 HYALINE CAST LPF (0-3 Hyaline); RBC/HPF None Seen HPF (0-3); Squamous Epithelial 0-3 HPF (0-3)
== END 2018-09-19 11:42 | disposition home or self-care (01) ==
LOC: MADERS 10:19
DX: N39.0 Urinary tract infection, site not specified (principal); I48.91 Unspecified atrial fibrillation; I50.9 Heart failure, unspecified; E78.5 Hyperlipidemia, unspecified; Z79.899 Other long term (current) drug therapy; Z79.82 Long term (current) use of aspirin
CPT/HCPCS: 81003; 81015; 87086; 99283

== ENCOUNTER 2018-12-18 15:54 | Emergency (ER) | payer MEDICARE ==
[2018-12-18 16:24] LABS: Bilirubin Negative (Negative); Blood, Urine Trace (Negative); Glucose, Urine (Dipstick) Negative (Negative); Leukocyte Trace (Negative); Nitrite Negative (Negative); Protein, Urine (Dipstick) Negative (Neg-Trace); Urobilinogen 0.2 mg/dL (Less than 2)
[2018-12-18 16:30] LABS: Clarity Hazy (Clear)
[2018-12-18 16:32] LABS: Bacteria/HPF 3+ HPF (None Seen); Squamous Epithelial 0-3 HPF (0-3); WBC/HPF 0-3 HPF (0-3)
[2018-12-18] MEDS ORDERED: cefTRIAXone\\ROCEPHIN 1 GM VIAL ONE (16:41)
[2018-12-18 16:54] LABS: ALT (SGPT) 11 U/L (8-55); AST (SGOT) 17 U/L (5-34); Albumin 3.6 g/dL (3.4-4.8); Alkaline Phosphatase 94 U/L (40-150); Anion Gap 14 mmol/L (10-20); Anisocytosis SLIGHT = 6-15 cells (100X) (0-5/hpf); BUN (Urea Nitrogen) 15 mg/dL (9.8-20.1); Bilirubin, Total 0.3 mg/dL (0.2-1.2); Calc. Creatinine Clearance 0 mL/min (70-130); Carbon Dioxide 25 mmol/L (23-31); Chloride 99 mmol/L (98-107); Eosinophils 4 % (0-10); Estimated GFR-MDRD 70; Globulin 2.8 g/dL (2.4-3.5); Glucose 101 mg/dL (83-110); Hemoglobin 11.9 g/dL (12.0-16.0); Hypochromia SLIGHT = 6-15 cells (100X) (0-5/hpf); Lipase 42 U/L (8-78); Lymphocytes 41 % (21-51); MDiff Complete? YES; Mean Corpuscular HGB CONC 31.8 g/dL (32.0-36.0); Mean Corpuscular Hemoglobin 30.4 pg (27.0-31.0); Mean Corpuscular Volume 95.7 fL (78.0-98.0); Mean Platelet Volume 6.5 fL (7.4-10.4); Monocytes 7 % (0-10); Neutrophil 42 % (42-75); Platelet Count 370 thou/uL (130-400); Platelet Morphology Comment Appears Adequate; Potassium 4.1 mmol/L (3.5-5.1); Protein, Total 6.4 g/dL (6.0-8.3); RBC Distribution Width 12.4 % (11.5-14.5); Reactive Lymphocytes 6 % (0-10); Sodium 134 mmol/L (136-145); White Blood Cell (WBC) Count 6.4 thou/uL (4.8-10.8)
== END 2018-12-18 17:05 | disposition home or self-care (01) ==
LOC: MADERS 15:54
DX: N30.00 Acute cystitis without hematuria (principal); M19.90 Unspecified osteoarthritis, unspecified site; I50.9 Heart failure, unspecified; E78.5 Hyperlipidemia, unspecified; I48.91 Unspecified atrial fibrillation; Z79.82 Long term (current) use of aspirin; Z79.899 Other long term (current) drug therapy
CPT/HCPCS: 80053; 81003; 81015; 83690; 85025; 87086; 96374; J0696

== ENCOUNTER 2019-04-27 18:37 | Outpatient (CLI) | payer MEDICARE ==
[2019-04-27 18:46] LABS: Bilirubin Negative (Negative); Blood, Urine Negative (Negative); Clarity Cloudy (Clear); Glucose, Urine (Dipstick) Negative (Negative); Leukocyte Moderate (Negative); Nitrite Positive (Negative); Protein, Urine (Dipstick) Negative (Neg-Trace); Urobilinogen 0.2 mg/dL (Less than 2)
[2019-04-27 18:52] LABS: Bacteria/HPF 4+ HPF (None Seen); RBC/HPF 0-3 HPF (0-3); WBC/HPF 21-50 HPF (0-3)
== END 2019-04-27 18:38 | disposition home or self-care (01) ==
LOC: MADLAB 18:37
PROVIDERS: ATTEND Urology
DX: N39.0 Urinary tract infection, site not specified (principal)
CPT/HCPCS: 81001; 87086

== ENCOUNTER 2020-04-27 10:07 | Outpatient (CLI) | payer MEDICARE ==
--- NOTE | 2020-04-27 10:52 | RAD ---
RIGHT KNEE 4 VIEWS: HISTORY: Knee pain. FINDINGS: Joint spaces are relatively well preserved with mild loss of lateral joint space. No significant hyp ertrophic degenerative change. No evidence of joint effusion. Mild osteopenia. No acute osseous ab normality. There is irregularity along the chondral surface of the patella at a site of a previously described f racture in 2013. IMPRESSION: No significant hypertrophic degenerative change. No acute osseous abnormality. POS: [facility]
== END 2020-04-27 10:08 | disposition home or self-care (01) ==
LOC: MADRAD 10:07
PROVIDERS: ATTEND Family Medicine
DX: M25.561 Pain in right knee (principal)

== ENCOUNTER 2020-05-11 09:54 | Emergency (ER) | payer MEDICARE ==
--- NOTE | 2020-05-11 10:25 | RAD ---
EXAM: Single view of the chest HISTORY: Generalized weakness COMPARISON: 01/10/2017 FINDINGS: Single view of the chest shows a normal sized cardiomediastinal silhouette. Atheroscleroti c calcifications are seen in the aorta. Diffuse increased interstitial markings are present. Biapical pleural thickening is seen. There is no evidence of consolidation, mass, or pleural effusion . No acute osseous abnormality. IMPRESSION: Chronic interstitial lung disease without evidence of acute cardiopulmonary disease
[2020-05-11 10:39] LABS: Hemoglobin 13.5 g/dL (12.0-16.0); Mean Corpuscular HGB CONC 32.6 g/dL (32.0-36.0); Mean Corpuscular Hemoglobin 31.9 pg (27.0-31.0); Mean Corpuscular Volume 97.8 fL (78.0-98.0); Mean Platelet Volume 6.9 fL (7.4-10.4); Platelet Count 281 thou/uL (130-400); RBC Distribution Width 12.4 % (11.5-14.5); Red Blood Cell (RBC) Count 4.23 mill/uL (4.20-5.40); White Blood Cell (WBC) Count 7.8 thou/uL (4.8-10.8)
[2020-05-11 10:46] LABS: #Basophils 0.1 thou/uL (0.0-0.2); #Eosinphils 0.1 thou/uL (0.0-0.7); #Lymphocytes 1.3 thou/uL (1.20-3.40); #Monocytes 0.7 thou/uL (0.11-0.59); #Neutrophils 5.7 thou/uL (1.40-6.50); %Basophils 1.3 % (0.0-1.0); %Eosinophils 1.8 % (0.0-10.0); %Lymphocytes 16.3 % (21.0-51.0); %Monocytes 8.5 % (0.0-10.0); %Neutrophils 72.1 % (42.0-75.0)
[2020-05-11 10:58] LABS: ALT (SGPT) 13 U/L (8-55); AST (SGOT) 17 U/L (5-34); Albumin 3.7 g/dL (3.4-4.8); Alkaline Phosphatase 82 U/L (40-110); Anion Gap 16 mmol/L (10-20); BUN (Urea Nitrogen) 11 mg/dL (9.8-20.1); Bilirubin, Total 0.6 mg/dL (0.2-1.2); Calc. Creatinine Clearance 0 mL/min (70-130); Calcium 8.4 mg/dL (7.8-10.44); Carbon Dioxide 23 mmol/L (23-31); Chloride 104 mmol/L (98-107); Globulin 3.2 g/dL (2.4-3.5); Glucose 106 mg/dL (83-110); Protein, Total 6.9 g/dL (6.0-8.3); Sodium 139 mmol/L (136-145)
--- NOTE | 2020-05-11 11:19 | RAD ---
EXAM: 4 views of the right knee HISTORY: Knee pain COMPARISON: 04/27/2020 FINDINGS: No knee effusion is seen. There is no evidence of acute fracture or dislocation. No signifi cant degenerative changes are seen. No soft tissue swelling is present. IMPRESSION: No evidence of acute osseous abnormality.
--- NOTE | 2020-05-11 11:35 | CT ---
HEAD CT WITHOUT CONTRAST: Date: 05/11/2020 HISTORY: Fall. Pain. COMPARISON: None. FINDINGS: No parenchymal hemorrhage. No extra-axial hematoma. No midline shift. Basilar cisterns are patent. Age-appropriate atrophy. Cortical bardales-white matter differentiation preserved. No hydrocephalus. White matter hypodensities due to chronic small vessel ischemic change. Adequate aeration of the sinuses and mastoid air cells. Intact calvarium. IMPRESSION: No acute intracranial process. No intracranial post-traumatic sequelae. POS: [facility]
--- NOTE | 2020-05-11 11:37 | CT ---
CT CERVICAL SPINE WITHOUT CONTRAST: Date: 05/11/2020 HISTORY: Fall. Pain. No loss of consciousness. COMPARISON: None. CORRELATION: CT angiogram of neck dated 05/30/2016. 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 There is no evidence of craniocervical dissociation. There are degenerative changes of the alignment of the lateral masses of C1 and C2. From C3 through T1, vertebr al body heights are maintained. There is no fracture. There is fusion of the C6-C7 disc space. There are varying degrees of central canal stenosis and foraminal narrowing on the basis of degenerat timothy change. No acute abnormality in the soft tissue neck structures. No prevertebral soft tissue swelling. No acute abnormality of the lung apices. IMPRESSION: 1. 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 2. Varying degrees of central canal stenosis and foraminal narrowing on the basis of degenerative ch peterson. 3. No acute cervical spine fracture. POS: [facility]
[2020-05-11 11:43] LABS: Bilirubin Negative (Negative); Blood, Urine Moderate (Negative); Clarity Slightly Cloudy (Clear); Glucose, Urine (Dipstick) Negative (Negative); Ketone, Urine Negative (Negative); Leukocyte Large (Negative); Nitrite Positive (Negative); Protein, Urine (Dipstick) 30 mg/dL (Neg-Trace); Specific Gravity, Urine 1.015 (1.005-1.030); Urobilinogen 0.2 mg/dL (Less than 2); pH, Urine 6.5 (5.0-9.0)
[2020-05-11 12:22] LABS: Bacteria/HPF 4+ HPF (None Seen); RBC/HPF Greater than 50 HPF (0-3); Squamous Epithelial None Seen HPF (0-3); WBC/HPF Greater Than 50 HPF (0-3)
[2020-05-11] MEDS ORDERED: Cephalexin 500 MG CAP ONE (12:51)
== END 2020-05-11 13:00 | disposition home or self-care (01) ==
LOC: MADERS 09:54
DX: N30.00 Acute cystitis without hematuria (principal); R53.1 Weakness; M25.561 Pain in right knee; G89.29 Other chronic pain; M19.90 Unspecified osteoarthritis, unspecified site; I48.91 Unspecified atrial fibrillation; I50.9 Heart failure, unspecified; E78.5 Hyperlipidemia, unspecified; Z86.73 Personal history of transient ischemic attack (TIA), and cerebral infarction without residual deficits; Z79.899 Other long term (current) drug therapy; Z79.01 Long term (current) use of anticoagulants; Z79.891 Long term (current) use of opiate analgesic
CPT/HCPCS: 36415; 51701; 70450; 71045; 72125; 80053; 81003; 81015; 83605; 84484; 85025; 87077; 87086; 87186; 93005

== ENCOUNTER 2020-05-19 13:14 | Emergency (ER) | payer MEDICARE ==
[2020-05-19 14:22] LABS: Bilirubin Negative (Negative); Blood, Urine Large (Negative); Clarity Slightly Cloudy (Clear); Glucose, Urine (Dipstick) Negative (Negative); Ketone, Urine Negative (Negative); Leukocyte Large (Negative); Nitrite Negative (Negative); Protein, Urine (Dipstick) 30 mg/dL (Neg-Trace); Specific Gravity, Urine 1.015 (1.005-1.030); Urobilinogen 0.2 mg/dL (Less than 2)
[2020-05-19 14:29] LABS: RBC/HPF 21-50 HPF (0-3); WBC/HPF Greater Than 50 HPF (0-3)
[2020-05-19 14:30] LABS: Bacteria/HPF 2+ HPF (None Seen); Squamous Epithelial 0-3 HPF (0-3)
[2020-05-19] MEDS ORDERED: Sterile Water 10 ML ONE (15:10)
[2020-05-19] MEDS ORDERED: cefTRIAXone\\ROCEPHIN 1 GM VIAL ONE (15:10)
== END 2020-05-19 15:45 | disposition home or self-care (01) ==
LOC: MADERS 13:14
DX: N39.0 Urinary tract infection, site not specified (principal); I48.91 Unspecified atrial fibrillation; M19.90 Unspecified osteoarthritis, unspecified site; I50.9 Heart failure, unspecified; E78.5 Hyperlipidemia, unspecified; Z79.899 Other long term (current) drug therapy; Z79.82 Long term (current) use of aspirin; Z79.891 Long term (current) use of opiate analgesic; Z79.01 Long term (current) use of anticoagulants
CPT/HCPCS: 81003; 81015; 87086; 96372; 99283; J0696

== ENCOUNTER 2020-07-01 10:38 | Emergency (ER) | payer MEDICARE ==
[~2020-07-01 10:38] MED LIST changes: -Sodium Chloride 0.9% 1,000 ML BAG ONE; +Sodium Chloride 0.9% 500 ML BAG ONE
[2020-07-01 12:08] LABS: #Basophils 0.1 thou/uL (0.0-0.2); #Eosinphils 0.1 thou/uL (0.0-0.7); #Lymphocytes 1.1 thou/uL (1.20-3.40); #Monocytes 0.7 thou/uL (0.11-0.59); #Neutrophils 7.6 thou/uL (1.40-6.50); %Basophils 0.9 % (0.0-1.0); %Eosinophils 0.7 % (0.0-10.0); %Lymphocytes 11.3 % (21.0-51.0); %Monocytes 7.4 % (0.0-10.0); %Neutrophils 79.7 % (42.0-75.0); Hemoglobin 12.4 g/dL (12.0-16.0); Mean Corpuscular HGB CONC 31.8 g/dL (32.0-36.0); Mean Corpuscular Hemoglobin 31.4 pg (27.0-31.0); Mean Corpuscular Volume 98.7 fL (78.0-98.0); Platelet Count 286 thou/uL (130-400); RBC Distribution Width 12.9 % (11.5-14.5); Red Blood Cell (RBC) Count 3.96 mill/uL (4.20-5.40); White Blood Cell (WBC) Count 9.5 thou/uL (4.8-10.8)
[2020-07-01] MEDS ORDERED: Iopamidol 370 76% 100 ML VIAL ONE (12:23)
[2020-07-01 12:51] LABS: ALT (SGPT) 11 U/L (8-55); AST (SGOT) 17 U/L (5-34); Albumin 3.4 g/dL (3.4-4.8); Alkaline Phosphatase 81 U/L (40-110); Anion Gap 14 mmol/L (10-20); BUN (Urea Nitrogen) 9 mg/dL (9.8-20.1); Bilirubin, Total 0.3 mg/dL (0.2-1.2); Calc. Creatinine Clearance 0 mL/min (70-130); Carbon Dioxide 21 mmol/L (23-31); Chloride 106 mmol/L (98-107); Globulin 3.1 g/dL (2.4-3.5); Glucose 110 mg/dL (83-110); Potassium 4.4 mmol/L (3.5-5.1); Protein, Total 6.5 g/dL (5.8-8.1); Sodium 137 mmol/L (136-145)
--- NOTE | 2020-07-01 13:34 | RAD ---
AP CHEST: 07/01/20 HISTORY: Cough. COMPARISON: 05/11/20. There are chronic interstitial changes in both lungs which have been noted previously and appears sta ble. No vascular congestion or edema. No evidence of focal infiltrate or consolidation. Heart size is upper normal and stable. IMPRESSION: Chronic lung changes appear stable from prior exam. No acute interval change. POS: [facility]
--- NOTE | 2020-07-01 13:44 | CT ---
CT ABDOMEN AND PELVIS WITH IV CONTRAST 07/01/2020 CLINICAL INFORMATION: Right upper quadrant tenderness. COMPARISON: None. Technique: Multiple contiguous axial CT images are obtained through the abdomen and pelvis with IV contrast. Cor onal reformatted images are provided. FINDINGS: Lower Chest: Trace right pleural effusion is present. Bibasilar atelectasis and/or scarring is presen t. The heart is at the upper limits of normal to borderline enlarged. Vessels: Vascular calcifications are seen in the visualized coronary arteries as well as involving th e abdominal aorta and iliac arteries. Abdomen: Portal vein:Patent Gallbladder: Within normal limits for CT imaging. Liver: Hepatic lesion is seen. There is minimal intrahepatic biliary duct dilatation of uncertain loida ology. The common duct is normal in caliber measuring 7 mm which is within normal limits for the patient's age. Spleen: within normal limits. Pancreas: Atrophic. No focal pancreatic lesion is seen. The proximal pancreatic duct is mildly dilate d measuring 5 mm. Adrenals: within normal limits. Kidneys: Within normal limits. Mild prominence of the right ureter. In addition, the rutledge of the rig ht ureter demonstrate suggestion of minimal enhancement. However the rutledge of the ureter do not appear particularly thickened. Ascending infection is thought less likely but would be difficult to e ntirely exclude. Bowel: Evidence of colonic diverticulosis. Loops of small bowel are normal in caliber. Small hiatal h ernia is present. Appendix: Not visualized, but there are no secondary signs to suggest appendicitis. Peritoneum: No ascites or free air; no fluid collection. Mesentery and Retroperitoneum: No enlarged mesenteric or retroperitoneal lymph nodes. Abdominal Wall: within normal limits. Pelvis: Reproductive Organs: Evidence of hysterectomy. Bladder: within normal limits. Bones: Multilevel degenerative changes are present. IMPRESSION: 1. Mild prominence of the left renal pelvis and left ureter which could be related to peristalsis. Wa lls of the right ureter to appear to demonstrate minimal enhancement. No definitive adjacent stranding is seen to suggest ascending infection. This is probably related to peristalsis and within normal limits, but there if there is concern for urinary tract infection, a urinalysis is recommended for further evaluation. 2. Minimal intrahepatic biliary ductal dilatation as well as mild prominence of the pancreatic duct o f uncertain etiology. The common duct is normal in caliber for patient's age. Follow-up ERCP may be helpful for further evaluation. 3. Small hiatal hernia. 4. Colonic diverticulosis. 5. Trace right pleural effusion.
[2020-07-01 14:25] LABS: Bilirubin Negative (Negative); Blood, Urine Trace (Negative); Clarity Cloudy (Clear); Glucose, Urine (Dipstick) Negative (Negative); Ketone, Urine Negative (Negative); Leukocyte Moderate (Negative); Nitrite Positive (Negative); Protein, Urine (Dipstick) Negative (Neg-Trace); Urobilinogen 0.2 mg/dL (Less than 2); pH, Urine 5.5 (5.0-9.0)
[2020-07-01 14:27] LABS: Bacteria/HPF 4+ HPF (None Seen); RBC/HPF 0-3 HPF (0-3); Squamous Epithelial None Seen HPF (0-3); WBC/HPF Greater than 50 HPF (0-3)
[2020-07-01] MEDS ORDERED: cefTRIAXone\\ROCEPHIN 1 GM VIAL ONE (14:52)
[2020-07-01 23:20] LABS: SARS-CoV-2 PCR by NAA Not Detected (NotDetected)
== END 2020-07-01 15:30 | disposition home or self-care (01) ==
LOC: MADERS 10:38
DX: N12 Tubulo-interstitial nephritis, not specified as acute or chronic (principal); I48.91 Unspecified atrial fibrillation; E78.5 Hyperlipidemia, unspecified; I50.9 Heart failure, unspecified; Z79.01 Long term (current) use of anticoagulants; Z79.82 Long term (current) use of aspirin; Z79.899 Other long term (current) drug therapy
CPT/HCPCS: 36415; 51701; 71045; 74177; 80053; 81003; 81015; 83605; 83880; 84484; 85025; 87040; 87077; 87086; 87186; 87635; 87804; 93005; 96374; J0696; J7030; Q9967; U0003; U0005

== ENCOUNTER 2020-08-22 08:36 | Emergency (ER) | payer MEDICARE ==
[~2020-08-22 08:36] MED LIST changes: +Apixaban 2.5 MG TAB ONE; -Sodium Chloride 0.9% 500 ML BAG ONE
[2020-08-22] MEDS ORDERED: Sodium Chloride 0.9% 100 ML ONE ×2 (09:20→11:22)
[2020-08-22] MEDS ORDERED: Amiodarone In Dextrose 200 ML ONE (09:20)
[2020-08-22] MEDS ORDERED: cefTRIAXone\\ROCEPHIN 2 GM VIAL ONE (09:20)
[2020-08-22 09:38] LABS: #Basophils 0.1 thou/uL (0.0-0.2); #Eosinphils 0.1 thou/uL (0.0-0.7); #Lymphocytes 1.8 thou/uL (1.20-3.40); #Neutrophils 9.3 thou/uL (1.40-6.50); %Basophils 0.5 % (0.0-1.0); %Eosinophils 0.5 % (0.0-10.0); %Lymphocytes 14.5 % (21.0-51.0); %Neutrophils 76.5 % (42.0-75.0); Hemoglobin 12.3 g/dL (12.0-16.0); Mean Corpuscular HGB CONC 32.1 g/dL (32.0-36.0); Mean Corpuscular Hemoglobin 30.9 pg (27.0-31.0); Mean Corpuscular Volume 96.1 fL (78.0-98.0); Mean Platelet Volume 6.6 fL (7.4-10.4); Platelet Count 428 thou/uL (130-400); RBC Distribution Width 12.1 % (11.5-14.5); Red Blood Cell (RBC) Count 3.99 mill/uL (4.20-5.40); White Blood Cell (WBC) Count 12.1 thou/uL (4.8-10.8)
[2020-08-22 09:57] LABS: ALT (SGPT) 18 U/L (8-55); AST (SGOT) 18 U/L (5-34); Albumin 3.4 g/dL (3.4-4.8); Alkaline Phosphatase 100 U/L (40-110); Anion Gap 14 mmol/L (10-20); BUN (Urea Nitrogen) 10 mg/dL (9.8-20.1); Bilirubin, Total 0.4 mg/dL (0.2-1.2); CK (CPK) 35 U/L (29-168); Calc. Creatinine Clearance 0 mL/min (70-130); Calcium 8.2 mg/dL (7.8-10.44); Carbon Dioxide 23 mmol/L (23-31); Chloride 104 mmol/L (98-107); Globulin 3.1 g/dL (2.4-3.5); Glucose 107 mg/dL (83-110); Potassium 4.1 mmol/L (3.5-5.1); Protein, Total 6.5 g/dL (5.8-8.1); Sodium 137 mmol/L (136-145)
[2020-08-22 10:09] LABS: Bilirubin Negative (Negative); Blood, Urine Trace (Negative); Clarity Slightly Cloudy (Clear); Glucose, Urine (Dipstick) Negative (Negative); Ketone, Urine Negative (Negative); Leukocyte Moderate (Negative); Nitrite Positive (Negative); Protein, Urine (Dipstick) Negative (Neg-Trace); Urobilinogen 0.2 mg/dL (Less than 2)
[2020-08-22 10:17] LABS: Bacteria/HPF 2+ HPF (None Seen); RBC/HPF 0-3 HPF (0-3); WBC/HPF 21-50 HPF (0-3)
[2020-08-22] MEDS ORDERED: Sodium Chloride 0.9% 500 ML ONE (10:53)
[2020-08-22] MEDS ORDERED: Diltiazem 125 MG/25 ML ONE (11:22)
[2020-08-22] MEDS ORDERED: Vancomycin 1.5 GRAM/300 ML BAG ONE (14:43)
== END 2020-08-22 13:37 | disposition short-term general hospital (02) ==
LOC: MADERS 08:36
DX: I48.91 Unspecified atrial fibrillation (principal); R53.1 Weakness; N39.0 Urinary tract infection, site not specified; E78.5 Hyperlipidemia, unspecified; I50.9 Heart failure, unspecified; Z79.01 Long term (current) use of anticoagulants; Z79.899 Other long term (current) drug therapy
CPT/HCPCS: 71045; 80053; 81003; 81015; 82550; 83605; 84484; 85025; 87040; 87077; 87086; 87186; 96365; 96366; 96367; 96375; 96376; J0282; J0696; J3370; J3490; J7030

== ENCOUNTER 2020-08-29 17:48 | Inpatient (IN) | payer MEDICARE ==
[2020-08-29] MEDS: Amiodarone 200 MG TAB PO SCH (21:14)
[2020-08-29] MEDS: Atorvastatin Calcium 10 MG TAB PO SCH (21:15)
[2020-08-29] MEDS: Nitrofurantoin Monohyd/M-Cryst 100 MG CAP PO SCH (21:15)
[2020-08-29] MEDS: Apixaban 2.5 MG TAB PO SCH (21:15)
[2020-08-29] MEDS: Gabapentin 300 MG CAP PO SCH (21:16)
[2020-08-29] MEDS: Acetaminophen 500 MG TAB PO PRN (22:24)
[2020-08-30 05:36] LABS: #Basophils 0.1 thou/uL (0.0-0.2); #Eosinphils 0.8 thou/uL (0.0-0.7); #Monocytes 0.7 thou/uL (0.11-0.59); #Neutrophils 3.9 thou/uL (1.40-6.50); %Basophils 0.7 % (0.0-1.0); %Eosinophils 10.8 % (0.0-10.0); %Lymphocytes 27.1 % (21.0-51.0); %Monocytes 9.2 % (0.0-10.0); %Neutrophils 52.2 % (42.0-75.0); Hemoglobin 11.3 g/dL (12.0-16.0); Mean Corpuscular HGB CONC 30.2 g/dL (32.0-36.0); Mean Corpuscular Volume 102.8 fL (78.0-98.0); Mean Platelet Volume 6.5 fL (7.4-10.4); Platelet Count 480 thou/uL (130-400); Red Blood Cell (RBC) Count 3.65 mill/uL (4.20-5.40); White Blood Cell (WBC) Count 7.5 thou/uL (4.8-10.8)
[2020-08-30 05:49] LABS: ALT (SGPT) 30 U/L (8-55); AST (SGOT) 29 U/L (5-34); Albumin 3.1 g/dL (3.4-4.8); Alkaline Phosphatase 95 U/L (40-110); Anion Gap 10 mmol/L (10-20); BUN (Urea Nitrogen) 8 mg/dL (9.8-20.1); Bilirubin, Total 0.2 mg/dL (0.2-1.2); Calc. Creatinine Clearance 55 mL/min (70-130); Calcium 8.5 mg/dL (7.8-10.44); Carbon Dioxide 29 mmol/L (23-31); Chloride 106 mmol/L (98-107); Globulin 2.8 g/dL (2.4-3.5); Glucose 92 mg/dL (83-110); Potassium 3.3 mmol/L (3.5-5.1); Protein, Total 5.9 g/dL (5.8-8.1); Sodium 142 mmol/L (136-145)
[2020-08-30] MEDS: Fluticasone Propionate Nasal Spray 16 gm Bottle NASAL PRN (08:50)
[2020-08-30] MEDS: Furosemide 20 MG TAB PO SCH (08:52)
[2020-08-30] MEDS: Aspirin 81 mg Enteric Coated Tablet PO SCH (08:52)
[2020-08-30] MEDS: Losartan Potassium 50 MG TAB PO SCH (08:52)
[2020-08-30] MEDS: Docusate 100 MG CAP PO SCH (08:52)
[2020-08-30] MEDS: Folic Acid 1 MG TAB PO SCH (08:52)
[2020-08-30] MEDS: Amiodarone 200 MG TAB PO SCH ×2 (08:53→21:10)
[2020-08-30] MEDS: Apixaban 2.5 MG TAB PO SCH ×2 (08:53→21:11)
[2020-08-30] MEDS: Gabapentin 300 MG CAP PO SCH ×2 (08:53→21:11)
[2020-08-30] MEDS: Nitrofurantoin Monohyd/M-Cryst 100 MG CAP PO SCH ×2 (08:55→21:11)
[2020-08-30] MEDS: Multivit, Therapeutic 1 TAB PO SCH (08:55)
[2020-08-30] MEDS: Potassium Chloride 10 MEQ TAB PO SCH (17:55)
[2020-08-30] MEDS: Atorvastatin Calcium 10 MG TAB PO SCH (21:11)
[2020-08-31] MEDS: Potassium Chloride 10 MEQ TAB PO SCH ×2 (09:08→17:46)
[2020-08-31] MEDS: Apixaban 2.5 MG TAB PO SCH ×2 (09:09→20:23)
[2020-08-31] MEDS: Docusate 100 MG CAP PO SCH (09:09)
[2020-08-31] MEDS: Nitrofurantoin Monohyd/M-Cryst 100 MG CAP PO SCH ×2 (09:09→20:21)
[2020-08-31] MEDS: Aspirin 81 mg Enteric Coated Tablet PO SCH (09:09)
[2020-08-31] MEDS: Losartan Potassium 50 MG TAB PO SCH (09:09)
[2020-08-31] MEDS: Amiodarone 200 MG TAB PO SCH ×2 (09:09→20:23)
[2020-08-31] MEDS: Furosemide 20 MG TAB PO SCH (09:10)
[2020-08-31] MEDS: Folic Acid 1 MG TAB PO SCH (09:10)
[2020-08-31] MEDS: Gabapentin 300 MG CAP PO SCH ×2 (09:10→20:23)
[2020-08-31] MEDS: Multivit, Therapeutic 1 TAB PO SCH (09:10)
[2020-08-31] MEDS: Acetaminophen 500 MG TAB PO PRN (09:11)
[2020-08-31] MEDS: Atorvastatin Calcium 10 MG TAB PO SCH (20:25)
[2020-09-01] MEDS: Potassium Chloride 10 MEQ TAB PO SCH ×2 (08:31→16:58)
[2020-09-01] MEDS: Aspirin 81 mg Enteric Coated Tablet PO SCH (08:32)
[2020-09-01] MEDS: Amiodarone 200 MG TAB PO SCH ×2 (08:32→20:10)
[2020-09-01] MEDS: Apixaban 2.5 MG TAB PO SCH ×2 (08:32→20:11)
[2020-09-01] MEDS: Multivit, Therapeutic 1 TAB PO SCH (08:33)
[2020-09-01] MEDS: Furosemide 20 MG TAB PO SCH (08:33)
[2020-09-01] MEDS: Losartan Potassium 50 MG TAB PO SCH (08:33)
[2020-09-01] MEDS: Docusate 100 MG CAP PO SCH (08:33)
[2020-09-01] MEDS: Folic Acid 1 MG TAB PO SCH (08:34)
[2020-09-01] MEDS: Gabapentin 300 MG CAP PO SCH ×2 (08:34→20:09)
[2020-09-01] MEDS: Nitrofurantoin Monohyd/M-Cryst 100 MG CAP PO SCH ×2 (08:34→20:12)
[2020-09-01] MEDS: Acetaminophen 500 MG TAB PO PRN (15:26)
[2020-09-01] MEDS: Fluticasone Propionate Nasal Spray 16 gm Bottle NASAL PRN (15:28)
[2020-09-01] MEDS: Atorvastatin Calcium 10 MG TAB PO SCH (20:11)
[2020-09-02] MEDS: Fluticasone Propionate Nasal Spray 16 gm Bottle NASAL PRN (08:10)
[2020-09-02] MEDS: Furosemide 20 MG TAB PO SCH (08:11)
[2020-09-02] MEDS: Multivit, Therapeutic 1 TAB PO SCH (08:11)
[2020-09-02] MEDS: Potassium Chloride 10 MEQ TAB PO SCH ×2 (08:11→17:27)
[2020-09-02] MEDS: Apixaban 2.5 MG TAB PO SCH ×2 (08:11→21:05)
[2020-09-02] MEDS: Amiodarone 200 MG TAB PO SCH ×2 (08:11→21:05)
[2020-09-02] MEDS: Acetaminophen 500 MG TAB PO PRN (08:12)
[2020-09-02] MEDS: Aspirin 81 mg Enteric Coated Tablet PO SCH (08:12)
[2020-09-02] MEDS: Folic Acid 1 MG TAB PO SCH (08:12)
[2020-09-02] MEDS: Docusate 100 MG CAP PO SCH (08:12)
[2020-09-02] MEDS: Losartan Potassium 50 MG TAB PO SCH (08:13)
[2020-09-02] MEDS: Gabapentin 300 MG CAP PO SCH ×2 (08:13→21:05)
[2020-09-02] MEDS: Nitrofurantoin Monohyd/M-Cryst 100 MG CAP PO SCH ×2 (08:17→21:06)
[2020-09-02] MEDS: Atorvastatin Calcium 10 MG TAB PO SCH (21:05)
[2020-09-03] MEDS: Folic Acid 1 MG TAB PO SCH (08:36)
[2020-09-03] MEDS: Aspirin 81 mg Enteric Coated Tablet PO SCH (08:36)
[2020-09-03] MEDS: Nitrofurantoin Monohyd/M-Cryst 100 MG CAP PO SCH ×2 (08:36→21:09)
[2020-09-03] MEDS: Gabapentin 300 MG CAP PO SCH ×2 (08:36→21:09)
[2020-09-03] MEDS: Amiodarone 200 MG TAB PO SCH ×2 (08:36→21:08)
[2020-09-03] MEDS: Multivit, Therapeutic 1 TAB PO SCH (08:36)
[2020-09-03] MEDS: Losartan Potassium 50 MG TAB PO SCH (08:36)
[2020-09-03] MEDS: Fluticasone Propionate Nasal Spray 16 gm Bottle NASAL SCH (08:37)
[2020-09-03] MEDS: Apixaban 2.5 MG TAB PO SCH ×2 (08:37→21:08)
[2020-09-03] MEDS: Potassium Chloride 10 MEQ TAB PO SCH ×2 (08:37→16:59)
[2020-09-03] MEDS: Furosemide 20 MG TAB PO SCH (08:37)
[2020-09-03] MEDS: Docusate 100 MG CAP PO SCH (08:38)
[2020-09-03] MEDS: Atorvastatin Calcium 10 MG TAB PO SCH (21:08)
[2020-09-04] MEDS: Aspirin 81 mg Enteric Coated Tablet PO SCH (08:20)
[2020-09-04] MEDS: Nitrofurantoin Monohyd/M-Cryst 100 MG CAP PO SCH ×2 (08:21→20:48)
[2020-09-04] MEDS: Gabapentin 300 MG CAP PO SCH ×2 (08:21→20:47)
[2020-09-04] MEDS: Losartan Potassium 50 MG TAB PO SCH (08:21)
[2020-09-04] MEDS: Potassium Chloride 10 MEQ TAB PO SCH ×2 (08:22→17:18)
[2020-09-04] MEDS: Folic Acid 1 MG TAB PO SCH (08:22)
[2020-09-04] MEDS: Amiodarone 200 MG TAB PO SCH ×2 (08:23→20:47)
[2020-09-04] MEDS: Apixaban 2.5 MG TAB PO SCH ×2 (08:23→20:47)
[2020-09-04] MEDS: Multivit, Therapeutic 1 TAB PO SCH (08:24)
[2020-09-04] MEDS: Furosemide 20 MG TAB PO SCH (08:24)
[2020-09-04] MEDS: Docusate 100 MG CAP PO SCH (08:24)
[2020-09-04] MEDS: Fluticasone Propionate Nasal Spray 16 gm Bottle NASAL SCH (08:25)
[2020-09-04] MEDS: Loratadine 10 MG TAB PO PRN (20:48)
[2020-09-04] MEDS: Atorvastatin Calcium 10 MG TAB PO SCH (20:48)
[2020-09-04] MEDS: Acetaminophen 500 MG TAB PO PRN (21:46)
[2020-09-05 05:50] LABS: Hemoglobin 12.2 g/dL (12.0-16.0); Platelet Count 484 thou/uL (130-400)
[2020-09-05] MEDS: Potassium Chloride 10 MEQ TAB PO SCH ×2 (08:24→16:37)
[2020-09-05] MEDS: Multivit, Therapeutic 1 TAB PO SCH (08:26)
[2020-09-05] MEDS: Amiodarone 200 MG TAB PO SCH ×2 (08:26→20:23)
[2020-09-05] MEDS: Folic Acid 1 MG TAB PO SCH (08:26)
[2020-09-05] MEDS: Aspirin 81 mg Enteric Coated Tablet PO SCH (08:26)
[2020-09-05] MEDS: Losartan Potassium 50 MG TAB PO SCH (08:26)
[2020-09-05] MEDS: Apixaban 2.5 MG TAB PO SCH ×2 (08:26→20:24)
[2020-09-05] MEDS: Docusate 100 MG CAP PO SCH (08:27)
[2020-09-05] MEDS: Nitrofurantoin Monohyd/M-Cryst 100 MG CAP PO SCH ×2 (08:28→20:22)
[2020-09-05] MEDS: Furosemide 20 MG TAB PO SCH (08:28)
[2020-09-05] MEDS: Gabapentin 300 MG CAP PO SCH ×2 (08:28→20:22)
[2020-09-05] MEDS: Fluticasone Propionate Nasal Spray 16 gm Bottle NASAL SCH (08:29)
[2020-09-05] MEDS: Artificial Tear Sol 15 ML BOT EA EYE PRN ×2 (13:51→20:22)
[2020-09-05] MEDS: Acetaminophen 500 MG TAB PO PRN (19:44)
[2020-09-05] MEDS: Atorvastatin Calcium 10 MG TAB PO SCH (20:22)
[2020-09-06] MEDS: Amiodarone 200 MG TAB PO SCH ×2 (08:44→20:10)
[2020-09-06] MEDS: Losartan Potassium 50 MG TAB PO SCH (08:44)
[2020-09-06] MEDS: Gabapentin 300 MG CAP PO SCH ×2 (08:45→20:11)
[2020-09-06] MEDS: Loratadine 10 MG TAB PO PRN (08:46)
[2020-09-06] MEDS: Fluticasone Propionate Nasal Spray 16 gm Bottle NASAL SCH (08:46)
[2020-09-06] MEDS: Nitrofurantoin Monohyd/M-Cryst 100 MG CAP PO SCH ×2 (08:46→20:11)
[2020-09-06] MEDS: Aspirin 81 mg Enteric Coated Tablet PO SCH (08:46)
[2020-09-06] MEDS: Folic Acid 1 MG TAB PO SCH (08:46)
[2020-09-06] MEDS: Apixaban 2.5 MG TAB PO SCH ×2 (08:46→20:10)
[2020-09-06] MEDS: Potassium Chloride 10 MEQ TAB PO SCH ×2 (08:46→16:53)
[2020-09-06] MEDS: Furosemide 20 MG TAB PO SCH (08:46)
[2020-09-06] MEDS: Multivit, Therapeutic 1 TAB PO SCH (08:46)
[2020-09-06] MEDS: Docusate 100 MG CAP PO SCH (08:46)
[2020-09-06] MEDS: Artificial Tear Sol 15 ML BOT EA EYE PRN ×2 (08:47→19:24)
[2020-09-06] MEDS: Polyethylene Glycol 3350 17 GM Packet PO PRN (16:54)
[2020-09-06] MEDS: Atorvastatin Calcium 10 MG TAB PO SCH (20:10)
[2020-09-07] MEDS: Fluticasone Propionate Nasal Spray 16 gm Bottle NASAL SCH (08:29)
[2020-09-07] MEDS: Gabapentin 300 MG CAP PO SCH ×2 (08:30→20:48)
[2020-09-07] MEDS: Polyethylene Glycol 3350 17 GM Packet PO PRN (08:30)
[2020-09-07] MEDS: Losartan Potassium 50 MG TAB PO SCH (08:30)
[2020-09-07] MEDS: Aspirin 81 mg Enteric Coated Tablet PO SCH (08:31)
[2020-09-07] MEDS: Folic Acid 1 MG TAB PO SCH (08:31)
[2020-09-07] MEDS: Nitrofurantoin Monohyd/M-Cryst 100 MG CAP PO SCH ×2 (08:31→20:49)
[2020-09-07] MEDS: Furosemide 20 MG TAB PO SCH (08:31)
[2020-09-07] MEDS: Potassium Chloride 10 MEQ TAB PO SCH ×2 (08:31→17:44)
[2020-09-07] MEDS: Docusate 100 MG CAP PO SCH (08:31)
[2020-09-07] MEDS: Multivit, Therapeutic 1 TAB PO SCH (08:31)
[2020-09-07] MEDS: Apixaban 2.5 MG TAB PO SCH ×2 (08:31→20:48)
[2020-09-07] MEDS: Amiodarone 200 MG TAB PO SCH ×2 (08:31→20:48)
[2020-09-07] MEDS ORDERED: Bisacodyl 10 MG SUPP PR PRN (20:36)
[2020-09-07] MEDS ORDERED: Polyethylene Glycol 3350 17 GM Packet PO SCH (20:45)
[2020-09-07] MEDS: Atorvastatin Calcium 10 MG TAB PO SCH (20:49)
[2020-09-07] MEDS: Artificial Tear Sol 15 ML BOT EA EYE PRN (20:50)
[2020-09-08 05:40] LABS: #Basophils 0.1 thou/uL (0.0-0.2); #Eosinphils 0.8 thou/uL (0.0-0.7); #Monocytes 0.7 thou/uL (0.11-0.59); #Neutrophils 4.2 thou/uL (1.40-6.50); %Basophils 1.3 % (0.0-1.0); %Eosinophils 10.2 % (0.0-10.0); %Lymphocytes 25.6 % (21.0-51.0); %Monocytes 8.6 % (0.0-10.0); %Neutrophils 54.3 % (42.0-75.0); Hemoglobin 12.1 g/dL (12.0-16.0); Mean Corpuscular HGB CONC 30.2 g/dL (32.0-36.0); Mean Corpuscular Hemoglobin 31.2 pg (27.0-31.0); Mean Corpuscular Volume 103.3 fL (78.0-98.0); Mean Platelet Volume 7.5 fL (7.4-10.4); Platelet Count 457 thou/uL (130-400); Red Blood Cell (RBC) Count 3.87 mill/uL (4.20-5.40); White Blood Cell (WBC) Count 7.7 thou/uL (4.8-10.8)
[2020-09-08 05:45] LABS: ALT (SGPT) 16 U/L (8-55); AST (SGOT) 18 U/L (5-34); Albumin 3.6 g/dL (3.4-4.8); Alkaline Phosphatase 121 U/L (40-110); Anion Gap 18 mmol/L (10-20); BUN (Urea Nitrogen) 15 mg/dL (9.8-20.1); Bilirubin, Total 0.2 mg/dL (0.2-1.2); Calc. Creatinine Clearance 0 mL/min (70-130); Calcium 8.8 mg/dL (7.8-10.44); Carbon Dioxide 25 mmol/L (23-31); Cardiac Risk 2.7 (Less than 4.5); Chloride 100 mmol/L (98-107); Cholesterol 176 mg/dl (< 200 Desired); Glucose 97 mg/dL (83-110); HDL Cholesterol 66 mg/dL (>60 Neg Risk); LDL Cholesterol, Calculated 80 mg/dL; Potassium 4.8 mmol/L (3.5-5.1); Protein, Total 6.6 g/dL (5.8-8.1); Sodium 138 mmol/L (136-145); Triglycerides 150 mg/dL (Less than 150)
[2020-09-08] MEDS ORDERED: Preparation H Ointment 57 gram tube TOP PRN (08:21)
[2020-09-08] MEDS: Aspirin 81 mg Enteric Coated Tablet PO SCH (08:52)
[2020-09-08] MEDS: Polyethylene Glycol 3350 17 GM Packet PO SCH (08:52)
[2020-09-08] MEDS: Amiodarone 200 MG TAB PO SCH ×2 (08:52→21:26)
[2020-09-08] MEDS: Losartan Potassium 50 MG TAB PO SCH (08:52)
[2020-09-08] MEDS: Nitrofurantoin Monohyd/M-Cryst 100 MG CAP PO SCH ×2 (08:52→21:27)
[2020-09-08] MEDS: Fluticasone Propionate Nasal Spray 16 gm Bottle NASAL SCH (08:53)
[2020-09-08] MEDS: Apixaban 2.5 MG TAB PO SCH ×2 (08:53→21:26)
[2020-09-08] MEDS: Multivit, Therapeutic 1 TAB PO SCH (08:53)
[2020-09-08] MEDS: Docusate 100 MG CAP PO SCH (08:53)
[2020-09-08] MEDS: Gabapentin 300 MG CAP PO SCH ×2 (08:53→21:26)
[2020-09-08] MEDS: Furosemide 20 MG TAB PO SCH (08:53)
[2020-09-08] MEDS: Potassium Chloride 10 MEQ TAB PO SCH ×2 (08:53→17:05)
[2020-09-08] MEDS: Folic Acid 1 MG TAB PO SCH (08:53)
[2020-09-08] MEDS: Acetaminophen 500 MG TAB PO PRN ×2 (15:40→21:27)
[2020-09-08] MEDS: Atorvastatin Calcium 10 MG TAB PO SCH (21:26)
[2020-09-08] MEDS: Artificial Tear Sol 15 ML BOT EA EYE PRN (21:31)
[2020-09-09] MEDS: Multivit, Therapeutic 1 TAB PO SCH (08:20)
[2020-09-09] MEDS: Nitrofurantoin Monohyd/M-Cryst 100 MG CAP PO SCH ×2 (08:21→20:15)
[2020-09-09] MEDS: Amiodarone 200 MG TAB PO SCH ×2 (08:21→20:14)
[2020-09-09] MEDS: Potassium Chloride 10 MEQ TAB PO SCH ×2 (08:21→17:50)
[2020-09-09] MEDS: Folic Acid 1 MG TAB PO SCH (08:21)
[2020-09-09] MEDS: Aspirin 81 mg Enteric Coated Tablet PO SCH (08:21)
[2020-09-09] MEDS: Furosemide 20 MG TAB PO SCH (08:21)
[2020-09-09] MEDS: Losartan Potassium 50 MG TAB PO SCH (08:21)
[2020-09-09] MEDS: Docusate 100 MG CAP PO SCH (08:21)
[2020-09-09] MEDS: Apixaban 2.5 MG TAB PO SCH ×2 (08:21→20:14)
[2020-09-09] MEDS: Gabapentin 300 MG CAP PO SCH ×2 (08:22→20:15)
[2020-09-09] MEDS: Artificial Tear Sol 15 ML BOT EA EYE PRN (08:23)
[2020-09-09] MEDS: Polyethylene Glycol 3350 17 GM Packet PO SCH (08:23)
[2020-09-09] MEDS: Fluticasone Propionate Nasal Spray 16 gm Bottle NASAL SCH (08:32)
[2020-09-09] MEDS: Acetaminophen 500 MG TAB PO PRN (17:50)
[2020-09-09] MEDS: Atorvastatin Calcium 10 MG TAB PO SCH (20:14)
[2020-09-10] MEDS: Potassium Chloride 10 MEQ TAB PO SCH ×2 (08:54→17:22)
[2020-09-10] MEDS: Docusate 100 MG CAP PO SCH (08:54)
[2020-09-10] MEDS: Amiodarone 200 MG TAB PO SCH ×2 (08:55→20:10)
[2020-09-10] MEDS: Gabapentin 300 MG CAP PO SCH ×2 (08:55→20:11)
[2020-09-10] MEDS: Furosemide 20 MG TAB PO SCH (08:55)
[2020-09-10] MEDS: Multivit, Therapeutic 1 TAB PO SCH (08:56)
[2020-09-10] MEDS: Aspirin 81 mg Enteric Coated Tablet PO SCH (08:58)
[2020-09-10] MEDS: Apixaban 2.5 MG TAB PO SCH ×2 (08:59→20:10)
[2020-09-10] MEDS: Losartan Potassium 50 MG TAB PO SCH (08:59)
[2020-09-10] MEDS: Nitrofurantoin Monohyd/M-Cryst 100 MG CAP PO SCH ×2 (08:59→20:12)
[2020-09-10] MEDS: Fluticasone Propionate Nasal Spray 16 gm Bottle NASAL SCH (09:00)
[2020-09-10] MEDS: Folic Acid 1 MG TAB PO SCH (09:00)
[2020-09-10] MEDS: Artificial Tear Sol 15 ML BOT EA EYE PRN (09:00)
[2020-09-10] MEDS: Polyethylene Glycol 3350 17 GM Packet PO SCH (09:01)
[2020-09-10] MEDS: Acetaminophen 500 MG TAB PO PRN (14:46)
[2020-09-10] MEDS: Atorvastatin Calcium 10 MG TAB PO SCH (20:11)
[2020-09-11] MEDS: Artificial Tear Sol 15 ML BOT EA EYE PRN (08:30)
[2020-09-11] MEDS: Fluticasone Propionate Nasal Spray 16 gm Bottle NASAL SCH (08:31)
[2020-09-11] MEDS: Nitrofurantoin Monohyd/M-Cryst 100 MG CAP PO SCH ×2 (08:31→20:49)
[2020-09-11] MEDS: Gabapentin 300 MG CAP PO SCH ×2 (08:31→20:47)
[2020-09-11] MEDS: Docusate 100 MG CAP PO SCH (08:31)
[2020-09-11] MEDS: Losartan Potassium 50 MG TAB PO SCH (08:31)
[2020-09-11] MEDS: Potassium Chloride 10 MEQ TAB PO SCH ×2 (08:32→17:03)
[2020-09-11] MEDS: Folic Acid 1 MG TAB PO SCH (08:32)
[2020-09-11] MEDS: Multivit, Therapeutic 1 TAB PO SCH (08:33)
[2020-09-11] MEDS: Aspirin 81 mg Enteric Coated Tablet PO SCH (08:33)
[2020-09-11] MEDS: Apixaban 2.5 MG TAB PO SCH ×2 (08:33→20:47)
[2020-09-11] MEDS: Furosemide 20 MG TAB PO SCH (08:33)
[2020-09-11] MEDS: Amiodarone 200 MG TAB PO SCH ×2 (08:33→20:47)
[2020-09-11] MEDS: Polyethylene Glycol 3350 17 GM Packet PO SCH (08:34)
[2020-09-11] MEDS: Atorvastatin Calcium 10 MG TAB PO SCH (20:50)
[2020-09-12] MEDS: Polyethylene Glycol 3350 17 GM Packet PO SCH ×2 (08:09→16:55)
[2020-09-12] MEDS: Furosemide 20 MG TAB PO SCH ×2 (08:09→16:55)
[2020-09-12] MEDS: Docusate 100 MG CAP PO SCH (08:09)
[2020-09-12] MEDS: Aspirin 81 mg Enteric Coated Tablet PO SCH (08:09)
[2020-09-12] MEDS: Losartan Potassium 50 MG TAB PO SCH (08:09)
[2020-09-12] MEDS: Apixaban 2.5 MG TAB PO SCH ×2 (08:09→20:03)
[2020-09-12] MEDS: Folic Acid 1 MG TAB PO SCH (08:10)
[2020-09-12] MEDS: Gabapentin 300 MG CAP PO SCH ×2 (08:10→20:02)
[2020-09-12] MEDS: Potassium Chloride 10 MEQ TAB PO SCH ×2 (08:10→16:59)
[2020-09-12] MEDS: Nitrofurantoin Monohyd/M-Cryst 100 MG CAP PO SCH ×2 (08:11→08:12)
[2020-09-12] MEDS: Amiodarone 200 MG TAB PO SCH ×2 (08:11→20:03)
[2020-09-12] MEDS: Multivit, Therapeutic 1 TAB PO SCH (08:11)
[2020-09-12] MEDS: Fluticasone Propionate Nasal Spray 16 gm Bottle NASAL SCH (08:11)
[2020-09-12] MEDS ORDERED: Sodium Chloride 0.65% Nasal 44 ML BOT EA NARE PRN (08:36)
[2020-09-12] MEDS: Sodium Chloride 0.65% Nasal 44 ML BOT EA NARE SCH ×2 (09:21→20:04)
[2020-09-12] MEDS: Atorvastatin Calcium 10 MG TAB PO SCH (20:03)
[2020-09-13] MEDS: Aspirin 81 mg Enteric Coated Tablet PO SCH (08:09)
[2020-09-13] MEDS: Gabapentin 300 MG CAP PO SCH ×2 (08:09→21:25)
[2020-09-13] MEDS: Apixaban 2.5 MG TAB PO SCH ×2 (08:09→21:25)
[2020-09-13] MEDS: Polyethylene Glycol 3350 17 GM Packet PO SCH (08:09)
[2020-09-13] MEDS: Potassium Chloride 10 MEQ TAB PO SCH ×2 (08:09→17:16)
[2020-09-13] MEDS: Losartan Potassium 50 MG TAB PO SCH (08:10)
[2020-09-13] MEDS: Folic Acid 1 MG TAB PO SCH (08:10)
[2020-09-13] MEDS: Docusate 100 MG CAP PO SCH (08:10)
[2020-09-13] MEDS: Furosemide 20 MG TAB PO SCH (08:10)
[2020-09-13] MEDS: Amiodarone 200 MG TAB PO SCH ×2 (08:10→21:25)
[2020-09-13] MEDS: Multivit, Therapeutic 1 TAB PO SCH (08:10)
[2020-09-13] MEDS: Fluticasone Propionate Nasal Spray 16 gm Bottle NASAL SCH (08:10)
[2020-09-13] MEDS: Nitrofurantoin Monohyd/M-Cryst 100 MG CAP PO SCH (08:10)
[2020-09-13] MEDS: Sodium Chloride 0.65% Nasal 44 ML BOT EA NARE SCH ×2 (08:11→21:27)
[2020-09-13] MEDS: Atorvastatin Calcium 10 MG TAB PO SCH (21:25)
[2020-09-13] MEDS: Acetaminophen 500 MG TAB PO PRN (21:26)
[2020-09-14] MEDS: Folic Acid 1 MG TAB PO SCH (08:38)
[2020-09-14] MEDS: Aspirin 81 mg Enteric Coated Tablet PO SCH (08:38)
[2020-09-14] MEDS: Losartan Potassium 50 MG TAB PO SCH (08:39)
[2020-09-14] MEDS: Amiodarone 200 MG TAB PO SCH ×2 (08:39→21:05)
[2020-09-14] MEDS: Furosemide 20 MG TAB PO SCH (08:39)
[2020-09-14] MEDS: Gabapentin 300 MG CAP PO SCH ×2 (08:39→21:04)
[2020-09-14] MEDS: Multivit, Therapeutic 1 TAB PO SCH (08:39)
[2020-09-14] MEDS: Docusate 100 MG CAP PO SCH (08:39)
[2020-09-14] MEDS: Fluticasone Propionate Nasal Spray 16 gm Bottle NASAL SCH (08:40)
[2020-09-14] MEDS: Apixaban 2.5 MG TAB PO SCH ×2 (08:40→21:05)
[2020-09-14] MEDS: Potassium Chloride 10 MEQ TAB PO SCH ×2 (08:40→17:20)
[2020-09-14] MEDS: Sodium Chloride 0.65% Nasal 44 ML BOT EA NARE SCH ×2 (08:41→21:05)
[2020-09-14] MEDS: Polyethylene Glycol 3350 17 GM Packet PO SCH (08:41)
[2020-09-14] MEDS: Mupirocin 2% Ointment 22 GM Tube TOP SCH ×2 (12:02→21:05)
[2020-09-14] MEDS: Cephalexin 500 MG CAP PO SCH ×3 (12:03→23:57)
[2020-09-14] MEDS: Acetaminophen 500 MG TAB PO PRN (13:54)
[2020-09-14] MEDS: Atorvastatin Calcium 10 MG TAB PO SCH (21:05)
[2020-09-14] MEDS: Loratadine 10 MG TAB PO PRN (21:07)
[2020-09-15] MEDS: Cephalexin 500 MG CAP PO SCH ×4 (05:55→23:57)
[2020-09-15] MEDS: Aspirin 81 mg Enteric Coated Tablet PO SCH (08:30)
[2020-09-15] MEDS: Polyethylene Glycol 3350 17 GM Packet PO SCH (08:30)
[2020-09-15] MEDS: Potassium Chloride 10 MEQ TAB PO SCH ×2 (08:30→17:21)
[2020-09-15] MEDS: Loratadine 10 MG TAB PO PRN (08:31)
[2020-09-15] MEDS: Apixaban 2.5 MG TAB PO SCH ×2 (08:31→21:35)
[2020-09-15] MEDS: Multivit, Therapeutic 1 TAB PO SCH (08:31)
[2020-09-15] MEDS: Losartan Potassium 50 MG TAB PO SCH (08:31)
[2020-09-15] MEDS: Amiodarone 200 MG TAB PO SCH ×2 (08:31→21:35)
[2020-09-15] MEDS: Docusate 100 MG CAP PO SCH (08:31)
[2020-09-15] MEDS: Furosemide 20 MG TAB PO SCH (08:31)
[2020-09-15] MEDS: Folic Acid 1 MG TAB PO SCH (08:32)
[2020-09-15] MEDS: Gabapentin 300 MG CAP PO SCH ×2 (08:32→21:35)
[2020-09-15] MEDS: Fluticasone Propionate Nasal Spray 16 gm Bottle NASAL SCH (08:36)
[2020-09-15] MEDS: Mupirocin 2% Ointment 22 GM Tube TOP SCH ×2 (08:37→21:36)
[2020-09-15] MEDS: Sodium Chloride 0.65% Nasal 44 ML BOT EA NARE SCH ×2 (08:38→21:36)
[2020-09-15] MEDS: Atorvastatin Calcium 10 MG TAB PO SCH (21:35)
[2020-09-16 05:32] LABS: Hemoglobin 11.4 g/dL (12.0-16.0); Platelet Count 345 thou/uL (130-400)
[2020-09-16] MEDS: Cephalexin 500 MG CAP PO SCH ×3 (06:07→17:06)
[2020-09-16] MEDS: Polyethylene Glycol 3350 17 GM Packet PO SCH (08:52)
[2020-09-16] MEDS: Losartan Potassium 50 MG TAB PO SCH (08:52)
[2020-09-16] MEDS: Loratadine 10 MG TAB PO PRN (08:53)
[2020-09-16] MEDS: Furosemide 20 MG TAB PO SCH (08:53)
[2020-09-16] MEDS: Multivit, Therapeutic 1 TAB PO SCH (08:53)
[2020-09-16] MEDS: Folic Acid 1 MG TAB PO SCH (08:53)
[2020-09-16] MEDS: Docusate 100 MG CAP PO SCH (08:53)
[2020-09-16] MEDS: Potassium Chloride 10 MEQ TAB PO SCH ×2 (08:53→17:05)
[2020-09-16] MEDS: Aspirin 81 mg Enteric Coated Tablet PO SCH (08:53)
[2020-09-16] MEDS: Apixaban 2.5 MG TAB PO SCH ×2 (08:53→20:29)
[2020-09-16] MEDS: Amiodarone 200 MG TAB PO SCH ×2 (08:53→20:29)
[2020-09-16] MEDS: Gabapentin 300 MG CAP PO SCH ×2 (08:54→20:29)
[2020-09-16] MEDS: Fluticasone Propionate Nasal Spray 16 gm Bottle NASAL SCH (08:56)
[2020-09-16] MEDS: Mupirocin 2% Ointment 22 GM Tube TOP SCH ×2 (08:56→20:30)
[2020-09-16] MEDS: Sodium Chloride 0.65% Nasal 44 ML BOT EA NARE SCH ×2 (08:57→20:30)
[2020-09-16] MEDS: Acetaminophen 500 MG TAB PO PRN ×2 (15:35→20:28)
[2020-09-16] MEDS: Atorvastatin Calcium 10 MG TAB PO SCH (20:29)
[2020-09-17] MEDS: Cephalexin 500 MG CAP PO SCH ×4 (00:10→17:30)
[2020-09-17] MEDS: Multivit, Therapeutic 1 TAB PO SCH (08:16)
[2020-09-17] MEDS: Furosemide 20 MG TAB PO SCH (08:17)
[2020-09-17] MEDS: Potassium Chloride 10 MEQ TAB PO SCH ×2 (08:17→17:31)
[2020-09-17] MEDS: Folic Acid 1 MG TAB PO SCH (08:17)
[2020-09-17] MEDS: Gabapentin 300 MG CAP PO SCH ×2 (08:17→21:08)
[2020-09-17] MEDS: Aspirin 81 mg Enteric Coated Tablet PO SCH (08:17)
[2020-09-17] MEDS: Polyethylene Glycol 3350 17 GM Packet PO SCH (08:18)
[2020-09-17] MEDS: Losartan Potassium 50 MG TAB PO SCH (08:18)
[2020-09-17] MEDS: Amiodarone 200 MG TAB PO SCH ×2 (08:18→21:09)
[2020-09-17] MEDS: Docusate 100 MG CAP PO SCH ×2 (08:18→08:19)
[2020-09-17] MEDS: Apixaban 2.5 MG TAB PO SCH ×2 (08:18→21:09)
[2020-09-17] MEDS: Sodium Chloride 0.65% Nasal 44 ML BOT EA NARE SCH ×2 (08:19→21:11)
[2020-09-17] MEDS: Fluticasone Propionate Nasal Spray 16 gm Bottle NASAL SCH (08:19)
[2020-09-17] MEDS: Mupirocin 2% Ointment 22 GM Tube TOP SCH ×2 (08:20→21:11)
[2020-09-17] MEDS: Atorvastatin Calcium 10 MG TAB PO SCH (21:09)
[2020-09-17] MEDS: Acetaminophen 500 MG TAB PO PRN (21:10)
[2020-09-18] MEDS ORDERED: Ondansetron ODT 4 MG TAB SL PRN (00:04)
[2020-09-18] MEDS: HYDROcodone/Acetaminophen 5/325 mg Tablet PO PRN (00:12)
[2020-09-18] MEDS: Cephalexin 500 MG CAP PO SCH ×5 (00:12→20:19)
[2020-09-18] MEDS: Folic Acid 1 MG TAB PO SCH (09:00)
[2020-09-18] MEDS: Aspirin 81 mg Enteric Coated Tablet PO SCH (09:00)
[2020-09-18] MEDS: Sodium Chloride 0.65% Nasal 44 ML BOT EA NARE SCH ×2 (09:00→20:19)
[2020-09-18] MEDS: Losartan Potassium 50 MG TAB PO SCH (09:00)
[2020-09-18] MEDS: Multivit, Therapeutic 1 TAB PO SCH (09:00)
[2020-09-18] MEDS: Amiodarone 200 MG TAB PO SCH ×2 (09:00→20:19)
[2020-09-18] MEDS: Apixaban 2.5 MG TAB PO SCH ×2 (09:00→20:19)
[2020-09-18] MEDS: Fluticasone Propionate Nasal Spray 16 gm Bottle NASAL SCH (09:00)
[2020-09-18] MEDS: Gabapentin 300 MG CAP PO SCH ×2 (09:00→20:18)
[2020-09-18] MEDS: Furosemide 20 MG TAB PO SCH (09:00)
[2020-09-18] MEDS: Polyethylene Glycol 3350 17 GM Packet PO SCH (09:00)
[2020-09-18] MEDS: Potassium Chloride 10 MEQ TAB PO SCH ×2 (09:00→17:05)
[2020-09-18] MEDS: Docusate 100 MG CAP PO SCH (09:00)
[2020-09-18] MEDS: Mupirocin 2% Ointment 22 GM Tube TOP SCH ×2 (15:38→20:21)
[2020-09-18] MEDS: Atorvastatin Calcium 10 MG TAB PO SCH (20:19)
[2020-09-18] MEDS: Artificial Tear Sol 15 ML BOT EA EYE PRN (20:21)
[2020-09-19] MEDS: Cephalexin 500 MG CAP PO SCH ×4 (04:07→21:19)
[2020-09-19] MEDS: Amiodarone 200 MG TAB PO SCH ×2 (08:15→21:22)
[2020-09-19] MEDS: Fluticasone Propionate Nasal Spray 16 gm Bottle NASAL SCH (08:15)
[2020-09-19] MEDS: Aspirin 81 mg Enteric Coated Tablet PO SCH (08:15)
[2020-09-19] MEDS: Potassium Chloride 10 MEQ TAB PO SCH ×2 (08:15→17:25)
[2020-09-19] MEDS: Apixaban 2.5 MG TAB PO SCH ×2 (08:15→21:21)
[2020-09-19] MEDS: Furosemide 20 MG TAB PO SCH (08:16)
[2020-09-19] MEDS: Multivit, Therapeutic 1 TAB PO SCH (08:16)
[2020-09-19] MEDS: Folic Acid 1 MG TAB PO SCH (08:16)
[2020-09-19] MEDS: Gabapentin 300 MG CAP PO SCH ×2 (08:16→21:19)
[2020-09-19] MEDS: Docusate 100 MG CAP PO SCH (08:16)
[2020-09-19] MEDS: Losartan Potassium 50 MG TAB PO SCH (08:16)
[2020-09-19] MEDS: Mupirocin 2% Ointment 22 GM Tube TOP SCH ×2 (08:18→21:19)
[2020-09-19] MEDS: Polyethylene Glycol 3350 17 GM Packet PO SCH (08:19)
[2020-09-19] MEDS: Sodium Chloride 0.65% Nasal 44 ML BOT EA NARE SCH ×2 (08:20→21:19)
[2020-09-19 10:08] VITALS: BMI 25.7
[2020-09-19] MEDS: HYDROcodone/Acetaminophen 5/325 mg Tablet PO PRN (19:33)
[2020-09-19] MEDS: Atorvastatin Calcium 10 MG TAB PO SCH (21:21)
[2020-09-20] MEDS: Cephalexin 500 MG CAP PO SCH ×4 (02:44→20:27)
[2020-09-20] MEDS: Sodium Chloride 0.65% Nasal 44 ML BOT EA NARE SCH ×2 (09:05→20:29)
[2020-09-20] MEDS: Fluticasone Propionate Nasal Spray 16 gm Bottle NASAL SCH (09:06)
[2020-09-20] MEDS: Mupirocin 2% Ointment 22 GM Tube TOP SCH ×2 (09:06→20:29)
[2020-09-20] MEDS: Folic Acid 1 MG TAB PO SCH (09:07)
[2020-09-20] MEDS: Losartan Potassium 50 MG TAB PO SCH (09:07)
[2020-09-20] MEDS: Polyethylene Glycol 3350 17 GM Packet PO SCH (09:07)
[2020-09-20] MEDS: Gabapentin 300 MG CAP PO SCH ×2 (09:08→20:27)
[2020-09-20] MEDS: Aspirin 81 mg Enteric Coated Tablet PO SCH (09:08)
[2020-09-20] MEDS: Docusate 100 MG CAP PO SCH (09:08)
[2020-09-20] MEDS: Potassium Chloride 10 MEQ TAB PO SCH ×2 (09:08→17:09)
[2020-09-20] MEDS: Amiodarone 200 MG TAB PO SCH ×2 (09:08→20:26)
[2020-09-20] MEDS: Furosemide 20 MG TAB PO SCH (09:08)
[2020-09-20] MEDS: Multivit, Therapeutic 1 TAB PO SCH (09:08)
[2020-09-20] MEDS: Apixaban 2.5 MG TAB PO SCH ×2 (09:09→20:26)
[2020-09-20] MEDS: Acetaminophen 500 MG TAB PO PRN (13:57)
[2020-09-20] MEDS: Loratadine 10 MG TAB PO PRN (17:46)
[2020-09-20] MEDS: HYDROcodone/Acetaminophen 5/325 mg Tablet PO PRN (18:57)
[2020-09-20] MEDS: Atorvastatin Calcium 10 MG TAB PO SCH (20:26)
[2020-09-21] MEDS: Cephalexin 500 MG CAP PO SCH ×3 (02:41→14:49)
[2020-09-21] MEDS: Fluticasone Propionate Nasal Spray 16 gm Bottle NASAL SCH (08:52)
[2020-09-21] MEDS: Gabapentin 300 MG CAP PO SCH ×2 (08:52→20:02)
[2020-09-21] MEDS: Losartan Potassium 50 MG TAB PO SCH (08:52)
[2020-09-21] MEDS: Aspirin 81 mg Enteric Coated Tablet PO SCH (08:52)
[2020-09-21] MEDS: Multivit, Therapeutic 1 TAB PO SCH (08:53)
[2020-09-21] MEDS: Potassium Chloride 10 MEQ TAB PO SCH ×2 (08:53→17:11)
[2020-09-21] MEDS: Apixaban 2.5 MG TAB PO SCH ×2 (08:54→20:02)
[2020-09-21] MEDS: Docusate 100 MG CAP PO SCH (08:54)
[2020-09-21] MEDS: Furosemide 20 MG TAB PO SCH (08:54)
[2020-09-21] MEDS: Folic Acid 1 MG TAB PO SCH (08:54)
[2020-09-21] MEDS: Mupirocin 2% Ointment 22 GM Tube TOP SCH ×2 (08:55→20:04)
[2020-09-21] MEDS: Polyethylene Glycol 3350 17 GM Packet PO SCH (08:55)
[2020-09-21] MEDS: Amiodarone 200 MG TAB PO SCH ×2 (08:55→20:03)
[2020-09-21] MEDS: Sodium Chloride 0.65% Nasal 44 ML BOT EA NARE SCH ×2 (08:56→20:04)
[2020-09-21] MEDS: Atorvastatin Calcium 10 MG TAB PO SCH (20:03)
[2020-09-22] MEDS: Losartan Potassium 50 MG TAB PO SCH (09:24)
[2020-09-22] MEDS: Polyethylene Glycol 3350 17 GM Packet PO SCH (09:24)
[2020-09-22] MEDS: Docusate 100 MG CAP PO SCH (09:25)
[2020-09-22] MEDS: Folic Acid 1 MG TAB PO SCH (09:25)
[2020-09-22] MEDS: Potassium Chloride 10 MEQ TAB PO SCH ×2 (09:25→18:06)
[2020-09-22] MEDS: Multivit, Therapeutic 1 TAB PO SCH (09:25)
[2020-09-22] MEDS: Aspirin 81 mg Enteric Coated Tablet PO SCH (09:26)
[2020-09-22] MEDS: Furosemide 20 MG TAB PO SCH (09:26)
[2020-09-22] MEDS: Apixaban 2.5 MG TAB PO SCH ×2 (09:26→21:07)
[2020-09-22] MEDS: Gabapentin 300 MG CAP PO SCH ×2 (09:26→21:07)
[2020-09-22] MEDS: Amiodarone 200 MG TAB PO SCH ×2 (09:27→21:07)
[2020-09-22] MEDS: Artificial Tear Sol 15 ML BOT EA EYE PRN (09:28)
[2020-09-22] MEDS: Fluticasone Propionate Nasal Spray 16 gm Bottle NASAL SCH (09:28)
[2020-09-22] MEDS: Mupirocin 2% Ointment 22 GM Tube TOP SCH ×2 (09:29→21:08)
[2020-09-22] MEDS: Sodium Chloride 0.65% Nasal 44 ML BOT EA NARE SCH ×2 (09:32→21:08)
[2020-09-22 17:41] LABS: Bilirubin Negative (Negative); Blood, Urine Trace (Negative); Clarity Cloudy (Clear); Glucose, Urine (Dipstick) Negative (Negative); Ketone, Urine Negative (Negative); Leukocyte Large (Negative); Nitrite Positive (Negative); Protein, Urine (Dipstick) Negative (Neg-Trace); Specific Gravity, Urine 1.015 (1.005-1.030); Urobilinogen 0.2 mg/dL (Less than 2)
[2020-09-22 17:43] LABS: Bacteria/HPF 2+ HPF (None Seen); RBC/HPF 0-3 HPF (0-3); Squamous Epithelial 0-3 HPF (0-3); WBC/HPF Greater Than 50 HPF (0-3)
[2020-09-22] MEDS: Atorvastatin Calcium 10 MG TAB PO SCH (21:07)
[2020-09-23] MEDS: Losartan Potassium 50 MG TAB PO SCH (08:48)
[2020-09-23] MEDS: Multivit, Therapeutic 1 TAB PO SCH (08:48)
[2020-09-23] MEDS: Polyethylene Glycol 3350 17 GM Packet PO SCH (08:48)
[2020-09-23] MEDS: Aspirin 81 mg Enteric Coated Tablet PO SCH (08:49)
[2020-09-23] MEDS: Folic Acid 1 MG TAB PO SCH (08:49)
[2020-09-23] MEDS: Potassium Chloride 10 MEQ TAB PO SCH (08:49)
[2020-09-23] MEDS: Amiodarone 200 MG TAB PO SCH (08:50)
[2020-09-23] MEDS: Apixaban 2.5 MG TAB PO SCH (08:50)
[2020-09-23] MEDS: Furosemide 20 MG TAB PO SCH (08:50)
[2020-09-23] MEDS: Docusate 100 MG CAP PO SCH (08:50)
[2020-09-23] MEDS: Gabapentin 300 MG CAP PO SCH (08:50)
[2020-09-23] MEDS: Mupirocin 2% Ointment 22 GM Tube TOP SCH (08:51)
[2020-09-23] MEDS: Sodium Chloride 0.65% Nasal 44 ML BOT EA NARE SCH (08:52)
[2020-09-23] MEDS: Fluticasone Propionate Nasal Spray 16 gm Bottle NASAL SCH (08:52)
[2020-09-23 14:33] VITALS: BP 122/63; TEMP 98.2
[2020-09-25] MEDS ORDERED: Amiodarone 200 MG TAB PO SCH (09:00)
== END 2020-09-23 15:10 | disposition home or self-care (01) | DRG 690 ==
LOC: MADMS 17:48
PROVIDERS: ADMIT Family Medicine; ATTEND Family Medicine
DX: N39.0 Urinary tract infection, site not specified (principal); I50.32 Chronic diastolic (congestive) heart failure; I69.351 Hemiplegia and hemiparesis following cerebral infarction affecting right dominant side; I35.0 Nonrheumatic aortic (valve) stenosis; E78.5 Hyperlipidemia, unspecified; M79.7 Fibromyalgia; I11.0 Hypertensive heart disease with heart failure; B96.20 Unspecified Escherichia coli [E. coli] as the cause of diseases classified elsewhere; K59.09 Other constipation; N95.2 Postmenopausal atrophic vaginitis; Z79.82 Long term (current) use of aspirin; Z79.01 Long term (current) use of anticoagulants; Z88.0 Allergy status to penicillin; Z88.1 Allergy status to other antibiotic agents; Z88.2 Allergy status to sulfonamides; M47.819 Spondylosis without myelopathy or radiculopathy, site unspecified; I48.0 Paroxysmal atrial fibrillation; R51.9 Headache, unspecified; L01.00 Impetigo, unspecified; J30.2 Other seasonal allergic rhinitis; H04.129 Dry eye syndrome of unspecified lacrimal gland; R53.81 Other malaise
CPT/HCPCS: 36415; 80053; 80061; 81001; 84443; 85014; 85018; 85025; 85049; 87077; 87086; 87186; Q0162

== ENCOUNTER 2020-10-10 11:44 | Outpatient (CLI) | payer MEDICARE ==
[2020-10-10 12:38] LABS: ALT (SGPT) 21 U/L (8-55); AST (SGOT) 24 U/L (5-34); Albumin 3.6 g/dL (3.4-4.8); Alkaline Phosphatase 95 U/L (40-110); Anion Gap 16 mmol/L (10-20); BUN (Urea Nitrogen) 11 mg/dL (9.8-20.1); Bilirubin, Total 0.3 mg/dL (0.2-1.2); Calc. Creatinine Clearance 0 mL/min (70-130); Calcium 8.8 mg/dL (7.8-10.44); Carbon Dioxide 27 mmol/L (23-31); Chloride 101 mmol/L (98-107); Globulin 2.6 g/dL (2.4-3.5); Glucose 84 mg/dL (83-110); Potassium 4.5 mmol/L (3.5-5.1); Protein, Total 6.2 g/dL (5.8-8.1); Sodium 139 mmol/L (136-145)
[2020-10-10 12:46] LABS: Hemoglobin 11.8 g/dL (12.0-16.0); Mean Corpuscular HGB CONC 30.3 g/dL (32.0-36.0); Mean Corpuscular Hemoglobin 30.8 pg (27.0-31.0); Mean Corpuscular Volume 101.5 fL (78.0-98.0); Mean Platelet Volume 7.3 fL (7.4-10.4); Platelet Count 358 thou/uL (130-400); RBC Distribution Width 13.1 % (11.5-14.5); Red Blood Cell (RBC) Count 3.82 mill/uL (4.20-5.40); White Blood Cell (WBC) Count 5.7 thou/uL (4.8-10.8)
[2020-10-10 12:47] LABS: MDiff Complete? YES; Manual Diff?? YES
[2020-10-10 12:48] LABS: Anisocytosis SLIGHT = 6-15 cells (100X) (0-5/hpf); Eosinophils 26 % (0-10); Lymphocytes 29 % (21-51); Monocytes 2 % (0-10); Neutrophil 43 % (42-75); Platelet Morphology Comment Appears Adequate
== END 2020-10-10 11:45 | disposition home or self-care (01) ==
LOC: MADLAB 11:44
DX: I11.0 Hypertensive heart disease with heart failure (principal); I50.9 Heart failure, unspecified
CPT/HCPCS: 80053; 85025; 85060